=== PATIENT | female | born 1935 | race Two or more races ===

== ENCOUNTER 2018-12-27 16:52 | Inpatient (IN) | payer MEDICARE, MEDICAID ==
[~2018-12-27] VITALS: Ht 165.1 cm; Wt 52.6 kg
[~2018-12-27 16:52] MED LIST: CIPRO500 MG PO; ONDANSETRON ODT4 MG ORAL
[2018-12-27 17:06] VITALS: BP 177/41
[2018-12-27] MEDS ORDERED: Isovue-300 100ml vial INJ PRN (17:15)
[2018-12-27 17:49] LABS: BASOPHILS % (AUTO) 0.5 % (0.0-2.0); EOSINOPHILS % (AUTO) 3.7 % (0.0-3.0); HEMATOCRIT 29.3 % (37.0-47.0); HEMOGLOBIN 9.6 G/DL (12.0-16.0); LYMPHOCYTES % (AUTO) 9.4 % (20.0-45.0); MEAN CORPUSCULAR VOLUME 89 FL (80-99); MONOCYTES % (AUTO) 5.5 % (1.0-10.0); NEUTROPHILS % (AUTO) 80.9 % (45.0-75.0); PLATELET COUNT 271 K/UL (150-450); RED CELL DISTRIBUTION WIDTH 15.6 % (11.6-14.8); WHITE BLOOD COUNT 13.9 K/UL (4.8-10.8)
--- NOTE | 2018-12-27 17:53 | Emergency Room Report ---
History of Present Illness General Chief Complaint: Abdominal Pain Source: Patient, Family Member, EMS Present Illness HPI This patient recently underwent a nephrectomy for kidney cancer. She subsequently has started dialysis for the past 2 weeks. She was at dialysis today when she felt pain in her abdomen. She also felt gassy. She denies nausea or vomiting. She denies fever or chills. She denies chest pain or shortness of breath. She states her symptoms have much improved by she still does have some pain. She has no other complaints. Allergies: Coded Allergies: SULFA (SULFONAMIDE ANTIBIOTICS) (Verified Allergy, Unknown, 11/21/14) COPIED FROM UNCODED SECTION Patient History Past Medical History: see triage record, DM, HTN, other - HLP Past Surgical History: other - Nephrectomy 1 week ago. Social History: Denies: smoking, alcohol use, drug use Reviewed Nursing Documentation: PMH: Agreed; PSxH: Agreed Nursing Documentation-PMH Hx Hypertension: Yes Hx Diabetes: Yes Review of Systems All Other Systems: negative except mentioned in HPI Physical Exam Vital Signs Date Time Temp Pulse Resp B/P (MAP) Pulse Ox O2 Delivery O2 Flow Rate FiO2 12/27/18 16:40 98.2 120 18 147/57 99 Room Air Sp02 EP Interpretation: reviewed, normal General Appearance: no apparent distress, alert, GCS 15, non-toxic Head: normocephalic, atraumatic Eyes: bilateral eye normal inspection, bilateral eye PERRL ENT: hearing grossly normal, normal pharynx, no angioedema, normal voice Neck: full range of motion, supple/symm/no masses Respiratory: chest non-tender, lungs clear, normal breath sounds, no respiratory distress, no retraction, no accessory muscle use, speaking full sentences Cardiovascular #1: regular rate, rhythm, no edema Gastrointestinal: normal bowel sounds, soft, non-distended, no guarding, no rebound, tenderness - Mild ttp in epigastrium Rectal: deferred Musculoskeletal: back normal, gait/station normal, normal range of motion, non- tender Neurologic: alert, oriented x3, responsive, motor strength/tone normal, sensory intact, speech normal Psychiatric: judgement/insight normal, memory normal, mood/affect normal, no suicidal/homicidal ideation Skin: normal color, no rash, warm/dry, well hydrated Medical Decision Making Diagnostic Impression: Primary Impression: Pancreatitis Additional Impressions: Postoperative generalized abdominal pain Post-operative infection ER Course This patient underwent a CT of the abdomen and pelvis given her recent nephrectomy. There were postoperative findings and over findings that could be a postoperative infection. Overall, the patient's abdomen is not peritoneal on exam. The patient is given broad-spectrum antibiotics and consultation was placed a general surgery. The patient will be admitted for further monitoring and further evaluation and treatment. Laboratory Tests Test 12/27/18 17:32 12/27/18 17:35 Urine Color Yellow Urine Appearance Clear Urine pH 9 (4.5-8.0) Urine Specific [place] 1.015 (1.005-1.035) Urine Protein 3+ (NEGATIVE) H Urine Glucose (UA) Negative (NEGATIVE) Urine Ketones Negative (NEGATIVE) Urine Blood 2+ (NEGATIVE) H Urine Nitrite Negative (NEGATIVE) Urine Bilirubin Negative (NEGATIVE) Urine Urobilinogen Normal MG/DL (0.0-1.0) Urine Leukocyte Esterase Negative (NEGATIVE) Urine RBC 0-2 /HPF (0 - 2) Urine WBC 0-2 /HPF (0 - 2) Urine Squamous Epithelial Cells Occasional /LPF Urine Bacteria None /HPF (NONE) White Blood Count 13.9 K/UL (4.8-10.8) H Red Blood Count 3.30 M/UL (4.20-5.40) L Hemoglobin 9.6 G/DL (12.0-16.0) L Hematocrit 29.3 % (37.0-47.0) L Mean Corpuscular Volume 89 FL (80-99) Mean Corpuscular Hemoglobin 29.1 PG (27.0-31.0) Mean Corpuscular Hemoglobin Concent 32.8 G/DL (32.0-36.0) Red Cell Distribution Width 15.6 % (11.6-14.8) H Platelet Count 271 K/UL (150-450) Mean Platelet Volume 6.5 FL (6.5-10.1) Neutrophils (%) (Auto) 80.9 % (45.0-75.0) H Lymphocytes (%) (Auto) 9.4 % (20.0-45.0) L Monocytes (%) (Auto) 5.5 % (1.0-10.0) Eosinophils (%) (Auto) 3.7 % (0.0-3.0) H Basophils (%) (Auto) 0.5 % (0.0-2.0) Sodium Level 139 MMOL/L (136-145) Potassium Level 3.9 MMOL/L (3.5-5.1) Chloride Level 101 MMOL/L (98-107) Carbon Dioxide Level 31 MMOL/L (21-32) Anion Gap 7 mmol/L (5-15) Blood Urea Nitrogen 29 mg/dL (7-18) H Creatinine 2.9 MG/DL (0.55-1.30) H Estimate Glomerular Filtration Rate mL/min (>60) Glucose Level 83 MG/DL (74-106) Calcium Level 8.6 MG/DL (8.5-10.1) Total Bilirubin 0.5 MG/DL (0.2-1.0) Aspartate Amino Transferase (AST) 39 U/L (15-37) H Alanine Aminotransferase (ALT) 22 U/L (12-78) Alkaline Phosphatase 89 U/L (46-116) Total Protein 7.8 G/DL (6.4-8.2) Albumin 2.8 G/DL (3.4-5.0) L Globulin 5.0 g/dL Albumin/Globulin Ratio 0.6 (1.0-2.7) L Lipase 529 U/L (73-393) H CT/MRI/US Diagnostic Results CT/MRI/US Diagnostic Results : Imaging Test Ordered: CT abd/pelvis Impression Multiple postoperative findings and some other findings that could be postoperative infection. Please see official report in the electronic medical record. Last Vital Signs Date Time Temp Pulse Resp B/P (MAP) Pulse Ox O2 Delivery O2 Flow Rate FiO2 12/27/18 17:06 98.2 62 16 177/41 97 Room Air Disposition: ADMITTED INPATIENT Condition: Serious Referrals: NOT CHOSEN IPA/,REFERRING (PCP) Agata Arceo DO Dec 27, 2018 17:53
[2018-12-27 17:57] LABS: ANION GAP 7 mmol/L (5-15); BLOOD UREA NITROGEN 29 mg/dL (7-18); CALCIUM 8.6 MG/DL (8.5-10.1); CARBON DIOXIDE 31 MMOL/L (21-32); CHLORIDE 101 MMOL/L (98-107); CREATININE 2.9 MG/DL (0.55-1.30); POTASSIUM 3.9 MMOL/L (3.5-5.1); SODIUM 139 MMOL/L (136-145)
[2018-12-27 18:01] LABS: APPEARANCE,URINE CLEAR; BILIRUBIN, URINE NEGATIVE (NEGATIVE); GLUCOSE, URINE (UA) NEGATIVE (NEGATIVE); KETONES,URINE NEGATIVE (NEGATIVE); LEUKOCYTE ESTERASE ,URINE NEGATIVE (NEGATIVE); NITRITE,URINE NEGATIVE (NEGATIVE); PH,URINE 9 (4.5-8.0); PROTEIN,URINE 3+ (NEGATIVE); UROBILINOGEN,URINE NORMAL MG/DL (0.0-1.0)
[2018-12-27 18:01] LABS: ALANINE AMINOTRANSFERASE 22 U/L (12-78); ALBUMIN 2.8 G/DL (3.4-5.0); ALBUMIN/GLOBULIN RATIO 0.6 (1.0-2.7); ALKALINE PHOSPHATASE 89 U/L (46-116); ASPARTATE AMINO TRANSFERASE 39 U/L (15-37); BILIRUBIN,TOTAL 0.5 MG/DL (0.2-1.0)
[2018-12-27 18:04] LABS: COLOR,URINE YELLOW
[2018-12-27] MEDS ORDERED: Piperacillin/Tazobactam 2.25 GM in NS 110 ML IVPB ONE (19:45)
[2018-12-27 20:00] VITALS: BP 184/71
[2018-12-27 21:00] VITALS: BP 190/64
[2018-12-27] MEDS ORDERED: Morphine Sulfate 4mg/ml Inj (IV USE ONLY) IVP ONE (21:45)
[2018-12-27 22:10] VITALS: BP 154/76
[2018-12-27] MEDS ORDERED: HYDROcodone/Acetamin 5/325 tab ORAL PRN (22:45)
[2018-12-27] MEDS ORDERED: HydrALAZINE 25mg tab ORAL PRN (22:45)
[2018-12-27 22:52] VITALS: BP 192/68
[2018-12-28 01:00] VITALS: BP 181/50
[2018-12-28] MEDS ORDERED: Zosyn 2.25gm inj ONE (02:46)
[2018-12-28 04:00] VITALS: BP 107/49
[2018-12-28] MEDS ORDERED: Piperacillin/Tazobactam 3.375 GM in NS 110 ML IVPB SCH (06:00)
[2018-12-28] MEDS: Zosyn 2.25 gm in D5W 55ml IV SCH ×3 (06:12→22:18)
[2018-12-28 07:38] LABS: ANION GAP 10 mmol/L (5-15); BLOOD UREA NITROGEN 40 mg/dL (7-18); CALCIUM 8.6 MG/DL (8.5-10.1); CARBON DIOXIDE 31 MMOL/L (21-32); CHLORIDE 101 MMOL/L (98-107); CREATININE 3.8 MG/DL (0.55-1.30); POTASSIUM 3.8 MMOL/L (3.5-5.1); SODIUM 142 MMOL/L (136-145)
[2018-12-28 07:42] LABS: HEMATOCRIT 28.6 % (37.0-47.0); HEMOGLOBIN 9.5 G/DL (12.0-16.0); MEAN CORPUSCULAR VOLUME 89 FL (80-99); PLATELET COUNT 272 K/UL (150-450); RED BLOOD COUNT 3.23 M/UL (4.20-5.40); RED CELL DISTRIBUTION WIDTH 15.8 % (11.6-14.8); WHITE BLOOD COUNT 20.7 K/UL (4.8-10.8)
[2018-12-28 08:00] VITALS: BP 123/49
[2018-12-28] MEDS ORDERED: Heparin Sod 1000 units/ml 10ml IV PRN (08:30)
--- NOTE | 2018-12-28 10:23 | Diagnostic Imaging Report ---
Indication: Abdominal pain Technique: Continuous helical transaxial imaging of the abdomen and pelvis was obtained from the lung bases to the pubic symphysis during intravenous contrast administration. Coronal 2-D reformats were also obtained. Study obtained in a Siemens sensation [address] Automatic Exposure Control was utilized. Total Dose length Product (DLP): 636.[address] Dose Index Volume (CTDIvol): 13.18 mGy Comparison: None Findings: There is air within the portal vein especially in the left lobe of the liver. There is associated pneumatosis of the right hemicolon. Bowel ischemia is not excluded. Please correlate clinically. There is a moderate degree of fluid demonstrated within the left retroperitoneum seen in the setting of prior nephrectomy. This may be postsurgical fluid such as seroma, liquefied hematoma or lymphocele measuring about 3 x 7.4 x 10 cm.. Abscess is not excluded. There is also fluid within the right anterior abdominal wall measuring 7.8 x 3 x 7 cm with the same differential diagnosis. There are innumerable cysts within the left kidney. Extensive calcification of aorta and branches of aorta noted. There is air in the urinary bladder. There is a cystic lesion just above the bladder measuring 8.9 cm which could be ovarian in nature. The uterus is present. There is also a left adnexal 4.3 cm x 3.0 cm cyst noted. Moderate fecal retention in the colon and rectum demonstrated. No evidence of bowel obstruction. Gallbladder is unremarkable. There is narrowing of intervertebral discs and accompanying endplate osteophyte formation. Hypertrophied facet joints also demonstrated.. The lung bases are essentially clear. Cardiomegaly noted. IMPRESSION: Portal venous gas and pneumatosis in the right hemicolon. Bowel ischemia not excluded. Status post right nephrectomy with right retroperitoneal fluid collection and a right anterolateral wall fluid collection likely postsurgical in nature. These may represent liquefied hematomas, seromas, or infected fluid such as abscess. Correlate clinically. Atherosclerotic vascular disease Cystic foci within the pelvis likely of ovarian origin as described above Moderate fecal retention. Degenerative changes of the spine. [facility] has communicated the preliminary results to the Emergency Department. Their findings are largely concordant with this report. The CT scanner at [facility] is accredited by the [employer] and the scans are performed using dose optimization techniques as appropriate to a performed exam including Automatic Exposure control.
[2018-12-28 12:00] VITALS: BP 102/46
--- NOTE | 2018-12-28 12:18 | Diagnostic Imaging Report ---
Indication:Abdominal pain. Elevated liver function tests, BUN/creatinine, history of right nephrectomy 12/11/2018 Technique: Grayscale and duplex Doppler imaging of the abdomen performed. Comparison: None Findings: The liver shows a curvilinear echogenic foci in the left lobe consistent with portal venous gas which has been confirmed on CT. Fluid seen on CT in the right anterolateral abdominal wall is noted on the current study. Fluid seen in the right nephrectomy bed is not appreciated on the current examination. The gallbladder is unremarkable. CBD is 5.4 mm. The demonstrated part of the pancreas, aorta and IVC show no obvious abnormalities. The right kidney is absent. Left kidney appears echogenic and there are multiple cysts. The spleen is normal in size. There is no biliary ductal dilatation identified. Doppler evaluation of the main portal vein shows patency. There is no ascites. No hydronephrosis seen. Within the pelvis there is a large unilocular cyst measuring about 9 cm. The origin of this cyst is not elucidated on the current exam. Impression: Status post the nephrectomy. Right anterolateral abdominal wall fluid collection better appreciated on CT. Please refer to the CT abdomen report. Portal venous gas within the left lobe of the liver. Abnormal left kidney with multiple cysts. Medical renal disease likely present. 9 cm cyst within the pelvis adjacent to the urinary bladder. Origin of the cyst unknown. This could be ovarian. Further evaluation is recommended.
--- NOTE | 2018-12-28 12:37 | History & Physical ---
History and Physical History & Physicial dictated #[id number] Oj Turcios MD Dec 28, 2018 12:37
[2018-12-28] MEDS ORDERED: Vancomycin oral 125mg/2.5ml ORAL SCH (13:00)
--- NOTE | 2018-12-28 13:01 | Consultation ---
Consult Note Assessment/Plan Renal consult dictated # [id number] Modesto Romero MD Dec 28, 2018 13:01
[2018-12-28] MEDS: Nephrovite tab (Rena-Vite) ORAL SCH (13:49)
--- NOTE | 2018-12-28 13:53 | GI Initial Consult Note ---
History of Present Illness General Date patient seen: Dec 28, 2018 Time patient seen: 13:49 Reason for Hospitalization: Abdominal Pain Referring physician: PARVIZ Reason for Consultation: DIARRHEA Present Illness HPI This patient recently underwent a nephrectomy for kidney cancer. She subsequently has started dialysis for the past 2 weeks. She was at dialysis today when she felt pain in her abdomen. She also felt gassy. She denies nausea or vomiting. She denies fever or chills. She denies chest pain or shortness of breath. She states her symptoms have much improved by she still does have some pain. She has no other complaints. GI consulted for diarrhea. Patient seen, awake alert oriented no apparent distress. Patient has complaint of severe diarrhea greater than 6 bowel movements today. Stated her initial onset was approximately 1-2 days ago. Specimen was sent to the lab, negative for C. difficile and positive for occult blood stool. Hemoglobin level is 9.5. Abdominal pelvic CT shows portal venous gas and pneumatosis in the right hemicolon. The patient denies any history of endoscopic colonoscopy. Home Meds Active Scripts Ondansetron Odt* (ZOFRAN ODT*) 4 Mg Tab.rapdis, 4 MG ORAL EVERY 8 HOURS, #9 TAB 0 Refills Prov:ColisaranoAgata. DO 11/21/14 Ciprofloxacin* (CIPRO*) 500 Mg Tablet, 500 MG PO BID for 10 Days, TAB Prov:Agata Arceo DO 11/21/14 Med list reviewed/reconciled: Yes Allergies: Coded Allergies: SULFA (SULFONAMIDE ANTIBIOTICS) (Verified Allergy, Unknown, 11/21/14) COPIED FROM UNCODED SECTION Patient History History Provided By: Patient, Medical Record PMH Narrative Past Medical History: see triage record, DM, HTN, other - HLP Past Surgical History: other - Nephrectomy 1 week ago. Social History: Denies: smoking, alcohol use, drug use Reviewed Nursing Documentation: PMH: Agreed; PSxH: Agreed Nursing Documentation-PMH Hx Hypertension: Yes Hx Diabetes: Yes Social History: Denies: smoking, alcohol use, drug use, other Review of Systems All Other Systems: negative except mentioned in HPI Physical Exam Vital Signs Date Time Temp Pulse Resp B/P (MAP) Pulse Ox O2 Delivery O2 Flow Rate FiO2 12/27/18 16:40 98.2 120 18 147/57 99 Room Air Sp02 EP Interpretation: reviewed, normal Labs Laboratory Tests Test 12/27/18 17:32 12/27/18 17:35 12/28/18 05:39 12/28/18 09:30 Urine Color Yellow Urine Appearance Clear Urine pH 9 (4.5-8.0) Urine Specific [place] 1.015 (1.005-1.035) Urine Protein 3+ (NEGATIVE) H Urine Glucose (UA) Negative (NEGATIVE) Urine Ketones Negative (NEGATIVE) Urine Blood 2+ (NEGATIVE) H Urine Nitrite Negative (NEGATIVE) Urine Bilirubin Negative (NEGATIVE) Urine Urobilinogen Normal MG/DL (0.0-1.0) Urine Leukocyte Esterase Negative (NEGATIVE) Urine RBC 0-2 /HPF (0 - 2) Urine WBC 0-2 /HPF (0 - 2) Urine Squamous Epithelial Cells Occasional /LPF Urine Bacteria None /HPF (NONE) White Blood Count 13.9 K/UL (4.8-10.8) H 20.7 K/UL (4.8-10.8) H Red Blood Count 3.30 M/UL (4.20-5.40) L 3.23 M/UL (4.20-5.40) L Hemoglobin 9.6 G/DL (12.0-16.0) L 9.5 G/DL (12.0-16.0) L Hematocrit 29.3 % (37.0-47.0) L 28.6 % (37.0-47.0) L Mean Corpuscular Volume 89 FL (80-99) 89 FL (80-99) Mean Corpuscular Hemoglobin 29.1 PG (27.0-31.0) 29.3 PG (27.0-31.0) Mean Corpuscular Hemoglobin Concent 32.8 G/DL (32.0-36.0) 33.1 G/DL (32.0-36.0) Red Cell Distribution Width 15.6 % (11.6-14.8) H 15.8 % (11.6-14.8) H Platelet Count 271 K/UL (150-450) 272 K/UL (150-450) Mean Platelet Volume 6.5 FL (6.5-10.1) 6.5 FL (6.5-10.1) Neutrophils (%) (Auto) 80.9 % (45.0-75.0) H % (45.0-75.0) Lymphocytes (%) (Auto) 9.4 % (20.0-45.0) L % (20.0-45.0) Monocytes (%) (Auto) 5.5 % (1.0-10.0) % (1.0-10.0) Eosinophils (%) (Auto) 3.7 % (0.0-3.0) H % (0.0-3.0) Basophils (%) (Auto) 0.5 % (0.0-2.0) % (0.0-2.0) Sodium Level 139 MMOL/L (136-145) 142 MMOL/L (136-145) Potassium Level 3.9 MMOL/L (3.5-5.1) 3.8 MMOL/L (3.5-5.1) Chloride Level 101 MMOL/L (98-107) 101 MMOL/L (98-107) Carbon Dioxide Level 31 MMOL/L (21-32) 31 MMOL/L (21-32) Anion Gap 7 mmol/L (5-15) 10 mmol/L (5-15) Blood Urea Nitrogen 29 mg/dL (7-18) H 40 mg/dL (7-18) H Creatinine 2.9 MG/DL (0.55-1.30) H 3.8 MG/DL (0.55-1.30) H Estimat Glomerular Filtration Rate mL/min (>60) mL/min (>60) Glucose Level 83 MG/DL (74-106) 43 MG/DL (74-106) L Calcium Level 8.6 MG/DL (8.5-10.1) 8.6 MG/DL (8.5-10.1) Total Bilirubin 0.5 MG/DL (0.2-1.0) Aspartate Amino Transf (AST/SGOT) 39 U/L (15-37) H Alanine Aminotransferase (ALT/SGPT) 22 U/L (12-78) Alkaline Phosphatase 89 U/L (46-116) Total Protein 7.8 G/DL (6.4-8.2) Albumin 2.8 G/DL (3.4-5.0) L Globulin 5.0 g/dL Albumin/Globulin Ratio 0.6 (1.0-2.7) L Lipase 529 U/L (73-393) H 231 U/L (73-393) Differential Total Cells Counted 100 Neutrophils % (Manual) 94 % (45-75) H Lymphocytes % (Manual) 2 % (20-45) L Monocytes % (Manual) 1 % (1-10) Eosinophils % (Manual) 0 % (0-3) Basophils % (Manual) 0 % (0-2) Band Neutrophils 3 % (0-8) Platelet Estimate Adequate Platelet Morphology Normal Anisocytosis 1+ Stool Occult Blood Positive (NEGATIVE) General Appearance: well appearing, no apparent distress, alert, thin Head: normocephalic EENT: PERRL/EOMI, normal ENT inspection Neck: supple Respiratory: normal breath sounds, no respiratory distress Cardiovascular: normal rate Gastrointestinal: normal inspection, non tender, soft, normal bowel sounds, non -distended Rectal: deferred Genitourinary: no CVA tenderness Musculoskeletal: normal inspection, back normal Neurologic: normal inspection, alert, oriented x3, responsive Psychiatric: normal inspection, judgement/insight normal, memory normal Skin: normal inspection, normal color, no rash, warm/dry, palpation normal, well hydrated Lymphatic: normal inspection, no adenopathy Current Medications Current Medications Medications (Trade) Dose Ordered Sig/Kranthi Route PRN Reason Start Time Stop Time Status Last Admin Dose Admin Acetaminophen (Tylenol) 650 mg Q4H PRN ORAL Mild Pain (Pain Scale 1-3) 12/27/18 22:45 01/26/19 22:44 12/28/18 04:52 Acetaminophen/ Hydrocodone Bitart ([place] 5/325) 1 tab Q6H PRN ORAL For Pain 12/27/18 22:45 01/03/19 22:44 Dextrose (Dextrose 50%) 25 ml Q30M PRN IV Hypoglycemia 12/27/18 22:45 01/26/19 22:44 Dextrose (Dextrose 50%) 50 ml Q30M PRN IV Hypoglycemia 12/27/18 22:45 01/26/19 22:44 Heparin Sodium (Porcine) (Heparin Sod 1000 units/ml 10ml) 500 unit ONCE PRN IV FOR HD USE ONLY 12/28/18 08:30 12/29/18 23:59 Hydralazine HCl (Apresoline) 25 mg Q6HR PRN ORAL SBP > 160 3/20/19 22:45 01/26/19 22:44 12/28/18 00:28 Iopamidol (Isovue-300 100ml) 100 ml NOW PRN INJ Radiology Procedure 12/27/18 17:15 Ondansetron HCl (Zofran) 4 mg Q6H PRN IVP Nausea & Vomiting 12/27/18 22:45 01/26/19 22:44 12/28/18 00:28 Piperacillin Sod/ Tazobactam Sod 2.25 gm/Dextrose 55 ml @ 110 mls/hr Q8HR IV 12/28/18 06:00 01/04/19 05:59 12/28/18 06:12 Sodium Chloride 1,000 ml @ 500 mls/hr Q2H PRN IVLG sbp<90 during hd 12/28/18 08:16 12/29/18 23:59 Vancomycin HCl (Firvanq) 125 mg FOUR TIMES A DAY ORAL 12/28/18 13:00 01/04/19 12:59 UNV Vitamin B Complex/ Vit C/Folic Acid (Nephrovite) 1 tab DAILY ORAL 12/28/18 13:15 01/27/19 13:14 GI: Plan Problems: (1) Diarrhea (2) Anemia (3) Ischemic colitis (4) Postoperative generalized abdominal pain Plan Abdominal pelvis CT reviewed >> This Portal venous gas and pneumatosis in the right hemicolon suggestive of ischemic colitis. OB stool positive Cdiff negative recommend surgical consult evaluate possible bowel ischemia as seen on CT maintain NPO + IVFs until seen by surgery no plan for GI procedures at this time anemia work up monitor H&H, prn transfusions bowel regime ppi fu labs Discussed with Dr. Nice. Thank you for this patient referral, we will follow. The patient was seen and examined at bedside and all new and available data was reviewed in the patients chart. I agree with the above findings, impression and plan. (Patient seen earlier today. Signature stamp does not reflect patient encounter time.). - MD Lani MirandaTucson Medical CenterRey RN OPERATING ROOM Dec 28, 2018 13:53
--- NOTE | 2018-12-28 15:17 | Consultation ---
History of Present Illness General Reason for Hospitalization: Abdominal Pain Present Illness HPI This is a 83-year-old female who presented to the emergency department at [facility] complaining of abdominal pain. Patient has a history of recent right nephrectomy done at [facility] for renal cancer. She has been in recovery and home with the family doing well until worsening abdominal pain identified. Denies any nausea vomiting fever or chills. In emergency department identified to have a leukocytosis, abdominal discomfort on palpation, CT scan with below findings. She is admitted for evaluation care and management. Surgery called to evaluate and assist with care. Allergies: Coded Allergies: SULFA (SULFONAMIDE ANTIBIOTICS) (Verified Allergy, Unknown, 11/21/14) COPIED FROM UNCODED SECTION Medication History Scheduled Ciprofloxacin* (Cipro*), 500 MG PO BID Ondansetron Odt* (Zofran Odt*), 4 MG ORAL EVERY 8 HOURS Patient History History Provided By: Patient, Medical Record, PMD Healthcare decision maker Resuscitation status Advanced Directive on File Past Medical/Surgical History Past Medical/Surgical History: (1) UTI (lower urinary tract infection) (2) Nausea (3) UTI (lower urinary tract infection) (4) Post-operative infection (5) Postoperative generalized abdominal pain (6) Pancreatitis (7) Anemia (8) Diarrhea (9) Ischemic colitis Review of Systems Review of Symptoms General ROS: no weight loss or fever Psychological ROS: no depression or mood changes, no memory loss Ophthalmic ROS: no visual changes or eye irritation ENT ROS: no nasal congestion, hearing loss, dizziness Allergy and Immunology ROS: no allergic symptoms or urticaria Hematological and Lymphatic ROS: no swollen glands, unusual bleeding or bruising Endocrine ROS: no polyuria, polydipsia, weight changes, temperature intolerance Respiratory ROS: no cough, shortness of breath, or wheezing Cardiovascular ROS: no chest pain or dyspnea on exertion Gastrointestinal ROS: denies abdominal pain, bright red blood in stool. Musculoskeletal ROS: no myalgias or arthralgias Neurological ROS: no TIA or stroke symptoms Dermatological ROS: no new or changing skin lesions, rashes or pruritis Physical Exam Physical Exam General appearance: alert, cooperative, no distress, appears stated age Head: Normocephalic, without obvious abnormality, atraumatic Eyes: conjunctivae/corneas clear. PERRL, EOM's intact. Fundi benign Throat: Lips, mucosa, and tongue normal. Teeth and gums normal Neck: supple, symmetrical, trachea midline, no adenopathy, thyroid: not enlarged, symmetric, no tenderness/mass/nodules, no carotid bruit and no JVD Lungs: clear to auscultation bilaterally Heart: regular rate and rhythm, S1, S2 normal, no murmur, click, rub or gallop Abdomen: soft, mild-tender. Bowel sounds normal. No masses, no organomegaly; right flank incision c/d/i - underlying fluid collection palpable. Extremities: extremities normal, atraumatic, no cyanosis or edema Pulses: 2+ and symmetric Skin: Skin color, texture, turgor normal. No rashes or lesions Neurologic: Grossly normal Last 24 Hour Vital Signs Date Time Temp Pulse Resp B/P (MAP) Pulse Ox O2 Delivery O2 Flow Rate FiO2 12/28/18 12:00 98.1 61 18 102/46 (64) 96 12/28/18 09:00 Room Air 12/28/18 08:00 97.9 65 18 123/49 (73) 95 12/28/18 05:22 102.2 12/28/18 04:00 102.0 74 20 107/49 (68) 97 12/28/18 01:00 102.1 72 18 181/50 (93) 98 12/28/18 00:28 194/68 12/27/18 22:52 Room Air 12/27/18 22:52 102.1 74 18 192/68 (109) 100 12/27/18 22:38 98.2 77 16 154/76 97 Room Air 12/27/18 22:32 98.2 12/27/18 22:10 98.2 77 16 154/76 97 Room Air 12/27/18 22:02 190/64 12/27/18 21:00 98.2 77 16 190/64 97 Room Air 12/27/18 20:00 98.2 74 16 184/71 98 Room Air 12/27/18 17:06 98.2 62 16 177/41 97 Room Air 12/27/18 17:06 62 16 Room Air 12/27/18 16:40 98.2 120 18 147/57 99 Room Air Intake and Output 12/27/18 12/28/18 18:59 06:59 Output Total 0 ml Balance 0 ml Output Urine Total 0 ml # Voids 2 # Bowel Movements 1 Laboratory Tests Test 3/20/19 17:32 12/27/18 17:35 12/28/18 05:39 12/28/18 09:30 Urine Color Yellow Urine Appearance Clear Urine pH 9 (4.5-8.0) Urine Specific [place] 1.015 (1.005-1.035) Urine Protein 3+ (NEGATIVE) H Urine Glucose (UA) Negative (NEGATIVE) Urine Ketones Negative (NEGATIVE) Urine Blood 2+ (NEGATIVE) H Urine Nitrite Negative (NEGATIVE) Urine Bilirubin Negative (NEGATIVE) Urine Urobilinogen Normal MG/DL (0.0-1.0) Urine Leukocyte Esterase Negative (NEGATIVE) Urine RBC 0-2 /HPF (0 - 2) Urine WBC 0-2 /HPF (0 - 2) Urine Squamous Epithelial Cells Occasional /LPF Urine Bacteria None /HPF (NONE) White Blood Count 13.9 K/UL (4.8-10.8) H 20.7 K/UL (4.8-10.8) H Red Blood Count 3.30 M/UL (4.20-5.40) L 3.23 M/UL (4.20-5.40) L Hemoglobin 9.6 G/DL (12.0-16.0) L 9.5 G/DL (12.0-16.0) L Hematocrit 29.3 % (37.0-47.0) L 28.6 % (37.0-47.0) L Mean Corpuscular Volume 89 FL (80-99) 89 FL (80-99) Mean Corpuscular Hemoglobin 29.1 PG (27.0-31.0) 29.3 PG (27.0-31.0) Mean Corpuscular Hemoglobin Concent 32.8 G/DL (32.0-36.0) 33.1 G/DL (32.0-36.0) Red Cell Distribution Width 15.6 % (11.6-14.8) H 15.8 % (11.6-14.8) H Platelet Count 271 K/UL (150-450) 272 K/UL (150-450) Mean Platelet Volume 6.5 FL (6.5-10.1) 6.5 FL (6.5-10.1) Neutrophils (%) (Auto) 80.9 % (45.0-75.0) H % (45.0-75.0) Lymphocytes (%) (Auto) 9.4 % (20.0-45.0) L % (20.0-45.0) Monocytes (%) (Auto) 5.5 % (1.0-10.0) % (1.0-10.0) Eosinophils (%) (Auto) 3.7 % (0.0-3.0) H % (0.0-3.0) Basophils (%) (Auto) 0.5 % (0.0-2.0) % (0.0-2.0) Sodium Level 139 MMOL/L (136-145) 142 MMOL/L (136-145) Potassium Level 3.9 MMOL/L (3.5-5.1) 3.8 MMOL/L (3.5-5.1) Chloride Level 101 MMOL/L (98-107) 101 MMOL/L (98-107) Carbon Dioxide Level 31 MMOL/L (21-32) 31 MMOL/L (21-32) Anion Gap 7 mmol/L (5-15) 10 mmol/L (5-15) Blood Urea Nitrogen 29 mg/dL (7-18) H 40 mg/dL (7-18) H Creatinine 2.9 MG/DL (0.55-1.30) H 3.8 MG/DL (0.55-1.30) H Estimat Glomerular Filtration Rate mL/min (>60) mL/min (>60) Glucose Level 83 MG/DL (74-106) 43 MG/DL (74-106) L Calcium Level 8.6 MG/DL (8.5-10.1) 8.6 MG/DL (8.5-10.1) Total Bilirubin 0.5 MG/DL (0.2-1.0) Aspartate Amino Transf (AST/SGOT) 39 U/L (15-37) H Alanine Aminotransferase (ALT/SGPT) 22 U/L (12-78) Alkaline Phosphatase 89 U/L (46-116) Total Protein 7.8 G/DL (6.4-8.2) Albumin 2.8 G/DL (3.4-5.0) L Globulin 5.0 g/dL Albumin/Globulin Ratio 0.6 (1.0-2.7) L Lipase 529 U/L (73-393) H 231 U/L (73-393) Differential Total Cells Counted 100 Neutrophils % (Manual) 94 % (45-75) H Lymphocytes % (Manual) 2 % (20-45) L Monocytes % (Manual) 1 % (1-10) Eosinophils % (Manual) 0 % (0-3) Basophils % (Manual) 0 % (0-2) Band Neutrophils 3 % (0-8) Platelet Estimate Adequate Platelet Morphology Normal Anisocytosis 1+ Stool Occult Blood Positive (NEGATIVE) Microbiology Date/Time Source Procedure Growth Status 12/28/18 09:30 Stool Clostridium difficile Toxin Assay - Final Complete 12/27/18 22:00 Rectum Received Height (Feet): 5 Height (Inches): 3.00 Weight (Pounds): 136 Medications Current Medications Medications (Trade) Dose Ordered Sig/Kranthi Route PRN Reason Start Time Stop Time Status Last Admin Dose Admin Acetaminophen (Tylenol) 650 mg Q4H PRN ORAL Mild Pain (Pain Scale 1-3) 12/27/18 22:45 01/26/19 22:44 12/28/18 04:52 Acetaminophen/ Hydrocodone Bitart ([place] 5/325) 1 tab Q6H PRN ORAL For Pain 12/27/18 22:45 01/03/19 22:44 Dextrose (Dextrose 50%) 25 ml Q30M PRN IV Hypoglycemia 12/27/18 22:45 01/26/19 22:44 Dextrose (Dextrose 50%) 50 ml Q30M PRN IV Hypoglycemia 12/27/18 22:45 01/26/19 22:44 Heparin Sodium (Porcine) (Heparin Sod 1000 units/ml 10ml) 500 unit ONCE PRN IV FOR HD USE ONLY 12/28/18 08:30 12/29/18 23:59 Hydralazine HCl (Apresoline) 25 mg Q6HR PRN ORAL SBP > 160 12/27/18 22:45 01/26/19 22:44 12/28/18 00:28 Iopamidol (Isovue-300 100ml) 100 ml NOW PRN INJ Radiology Procedure 12/27/18 17:15 Ondansetron HCl (Zofran) 4 mg Q6H PRN IVP Nausea & Vomiting 12/27/18 22:45 01/26/19 22:44 12/28/18 00:28 Piperacillin Sod/ Tazobactam Sod 2.25 gm/Dextrose 55 ml @ 110 mls/hr Q8HR IV 12/28/18 06:00 01/04/19 05:59 12/28/18 13:51 Sodium Chloride 1,000 ml @ 500 mls/hr Q2H PRN IVLG sbp<90 during hd 12/28/18 08:16 12/29/18 23:59 Vitamin B Complex/ Vit C/Folic Acid (Nephrovite) 1 tab DAILY ORAL 12/28/18 13:15 01/27/19 13:14 12/28/18 13:49 Assessment/Plan Problem List: (1) Ischemic colitis ICD Codes: K55.9 - Vascular disorder of intestine, unspecified SNOMED: 49455515 (2) Pancreatitis Assessment & Plan: Noted to have pancreatitis with lipase >500 on admission. currently trending down. clinically abd pain more related to surgical findings and less clinically pancreatitis. ICD Codes: K85.90 - Acute pancreatitis without necrosis or infection, unspecified SNOMED: 48009671 (3) Postoperative generalized abdominal pain Assessment & Plan: This is a 83-year-old female status post right nephrectomy for cancer at outside facility who presents with worsening abdominal pain. Upon admission she was identified to have a fever of 102 over the past 24 hours , a worsening leukocytosis, abdominal discomfort, diarrhea, stool positive blood. CT scan findings with air within the portal vein especially in the left lobe of the liver. There is associated pneumatosis of the right hemicolon. Bowel ischemia is not excluded. Please correlate clinically. There is a moderate degree of fluid demonstrated within the left retroperitoneum seen in the setting of prior nephrectomy. This may be postsurgical fluid such as seroma, liquefied hematoma or lymphocele measuring about 3 x 7.4 x 10 cm. Abscess is not excluded. There is also fluid within the right anterior abdominal wall measuring 7.8 x 3 x 7 cm with the same differential diagnosis. There are innumerable cysts within the left kidney. Extensive calcification of aorta and branches of aorta noted. There is air in the urinary bladder. There is a cystic lesion just above the bladder measuring 8.9 cm which could be ovarian in nature. The uterus is present. There is also a left adnexal 4.3 cm x 3.0 cm cyst noted Febrile, leukocytosis, abd pain, CT with above findings. CT was were reviewed and correlated with physical examination. The surgical site is clean dry without signs of cellulitis or infectious process. Underlying fluid collection is palpable and seemingly more a seroma than abscess cavity. Case was discussed with gastroenterology and patient's primary. Given patient's fairly benign clinical examination and above data. It is likely that patient is having infectious colitis and less likely patient having ischemic colitis. Current plan is for n.p.o., bowel prep, colonoscopy, preparation for surgery if necessary based on any of these findings. Trend labs. Thank you for allowing me to participate in patient's care will follow with recommendations ICD Codes: G89.18 - Other acute postprocedural pain; R10.84 - Generalized abdominal pain SNOMED: 091367292, [id number] Tyrese Price Dec 28, 2018 15:17
[2018-12-28 16:00] VITALS: BP 133/72
[2018-12-28] MEDS ORDERED: Nulytely 4L ORAL SCH (16:00)
--- NOTE | 2018-12-28 16:45 | Consultation ---
DATE OF CONSULTATION: 12/28/2018 CONSULTING PHYSICIAN: Kvng Epperson M.D. REFERRING PHYSICIAN: Oj Turcios M.D. REASON FOR CONSULTATION: Evaluation of abdominal pain. HISTORY OF PRESENT ILLNESS: This is an 83-year-old female. She is about 2-1/2 weeks or so status post right nephrectomy at [facility] for what the patient states was a "tumor." Apparently, she has some chronic kidney disease, she has been on dialysis. She came to the ER because of abdominal pain. She has had some fevers. She had a CT scan, which showed postoperative changes and possible infection. Urology evaluation requested. PAST MEDICAL HISTORY: Significant for above. Also, diabetes and hypertension. PAST SURGICAL HISTORY: As above. CURRENT MEDICATIONS: Here in the hospital, the patient is on Zosyn, Zofran, [place], and hydralazine. ALLERGIES: To sulfa. SOCIAL HISTORY: She is a nonsmoker. FAMILY HISTORY: Noncontributory. REVIEW OF SYSTEMS: As above. She does have occasional urinary frequency. PHYSICAL EXAMINATION: GENERAL: Elderly female, in no acute distress. HEENT: T-max of 102.2. Blood pressure is 107, 49. HEENT: Normocephalic. NECK: Supple. ABDOMEN: Soft, nondistended, and mildly tender. She does have a right flank scar, which is covered with Steri-Strips, but the scar appears to be clean without erythema. There is no fluctuance or drainage visible. LABORATORY STUDIES: UA showed 3+ protein and 2+ blood. White count 13.9, hemoglobin 9.6, and platelets are 271,000. BUN 29. Creatinine is 2.9. There are no microbiology studies. DIAGNOSTIC IMAGING STUDIES: The patient had a CT scan of the abdomen and pelvis. The official report is not available now. Apparently, the preliminary finding showed postoperative changes, possibly infection. IMPRESSION: 1. Abdominal pain. 2. Status post recent right nephrectomy, presumably for renal cell carcinoma. 3. Chronic kidney disease. 4. Proteinuria. 5. Urinary frequency history. 6. Rule out neurogenic bladder. 7. Hematuria. PLAN AND DISCUSSION: Again, the patient does have fevers. The exact source is unknown. Her exam is mostly benign. She does not have evidence of wound infection. Abdomen is soft. I have asked to follow up the final results of the CT scan and discussed with the radiologist. Certainly, there would be postoperative changes to be expected after surgery. If she does have a possible fluid collection or abscess, then that may require percutaneous drainage. Otherwise, at this time, I would monitor clinically with antibiotics. I would panculture and go from there. Thank you for this consultation. Kvng Epperson M.D. DR: YUDELKA JOB#: [id number] CC:
--- NOTE | 2018-12-28 17:39 | Infectious Diseases Prog Note ---
Assessment/Plan Assessment/Plan Full consult dictated: A) 1) sepsis, leukocytosis, fevers, diarrhea, abdominal discomfort 2) source unclear, c.diff. negative, blood cultures pending, CT abdomen and pelvis noted, ua benign 3) s/p right nephrectomy, hx of renal CA 4) CT with fluid collection and pneumatosis, ? seroma, ? abscess, ? hematoma , ? post-operative changes only, ? ischemic colitis 5) clinically not consistent of peritonitis on my exam 6) esrd, hd, has HD line, ? infected line 7) pmh noted 8) allergies - nkda P) 1) vancomycin and zosyn 2) for colonoscopy, f/u on cultures 3) surgery, urology and gi f/u 4) may need aspiration of fluid 5) d/w Dr. Turcios and Dr. Price 6) thank you Subjective Allergies: Coded Allergies: SULFA (SULFONAMIDE ANTIBIOTICS) (Verified Allergy, Unknown, 11/21/14) COPIED FROM UNCODED SECTION Objective Vital Signs Last 24 Hour Vital Signs Date Time Temp Pulse Resp B/P (MAP) Pulse Ox O2 Delivery O2 Flow Rate FiO2 12/28/18 12:00 98.1 61 18 102/46 (64) 96 12/28/18 09:00 Room Air 12/28/18 08:00 97.9 65 18 123/49 (73) 95 12/28/18 05:22 102.2 12/28/18 04:00 102.0 74 20 107/49 (68) 97 12/28/18 01:00 102.1 72 18 181/50 (93) 98 12/28/18 00:28 194/68 12/27/18 22:52 Room Air 12/27/18 22:52 102.1 74 18 192/68 (109) 100 12/27/18 22:38 98.2 77 16 154/76 97 Room Air 12/27/18 22:32 98.2 12/27/18 22:10 98.2 77 16 154/76 97 Room Air 12/27/18 22:02 190/64 12/27/18 21:00 98.2 77 16 190/64 97 Room Air 12/27/18 20:00 98.2 74 16 184/71 98 Room Air Height (Feet): 5 Height (Inches): 3.00 Weight (Pounds): 136 Microbiology Date/Time Source Procedure Growth Status 12/28/18 09:30 Stool Clostridium difficile Toxin Assay - Final Complete 12/27/18 22:00 Rectum Received Laboratory Tests Test 12/27/18 17:32 12/27/18 17:35 12/28/18 05:39 12/28/18 09:30 Urine Color Yellow Urine Appearance Clear Urine pH 9 (4.5-8.0) Urine Specific [place] 1.015 (1.005-1.035) Urine Protein 3+ (NEGATIVE) H Urine Glucose (UA) Negative (NEGATIVE) Urine Ketones Negative (NEGATIVE) Urine Blood 2+ (NEGATIVE) H Urine Nitrite Negative (NEGATIVE) Urine Bilirubin Negative (NEGATIVE) Urine Urobilinogen Normal MG/DL (0.0-1.0) Urine Leukocyte Esterase Negative (NEGATIVE) Urine RBC 0-2 /HPF (0 - 2) Urine WBC 0-2 /HPF (0 - 2) Urine Squamous Epithelial Cells Occasional /LPF Urine Bacteria None /HPF (NONE) White Blood Count 13.9 K/UL (4.8-10.8) H 20.7 K/UL (4.8-10.8) H Red Blood Count 3.30 M/UL (4.20-5.40) L 3.23 M/UL (4.20-5.40) L Hemoglobin 9.6 G/DL (12.0-16.0) L 9.5 G/DL (12.0-16.0) L Hematocrit 29.3 % (37.0-47.0) L 28.6 % (37.0-47.0) L Mean Corpuscular Volume 89 FL (80-99) 89 FL (80-99) Mean Corpuscular Hemoglobin 29.1 PG (27.0-31.0) 29.3 PG (27.0-31.0) Mean Corpuscular Hemoglobin Concent 32.8 G/DL (32.0-36.0) 33.1 G/DL (32.0-36.0) Red Cell Distribution Width 15.6 % (11.6-14.8) H 15.8 % (11.6-14.8) H Platelet Count 271 K/UL (150-450) 272 K/UL (150-450) Mean Platelet Volume 6.5 FL (6.5-10.1) 6.5 FL (6.5-10.1) Neutrophils (%) (Auto) 80.9 % (45.0-75.0) H % (45.0-75.0) Lymphocytes (%) (Auto) 9.4 % (20.0-45.0) L % (20.0-45.0) Monocytes (%) (Auto) 5.5 % (1.0-10.0) % (1.0-10.0) Eosinophils (%) (Auto) 3.7 % (0.0-3.0) H % (0.0-3.0) Basophils (%) (Auto) 0.5 % (0.0-2.0) % (0.0-2.0) Sodium Level 139 MMOL/L (136-145) 142 MMOL/L (136-145) Potassium Level 3.9 MMOL/L (3.5-5.1) 3.8 MMOL/L (3.5-5.1) Chloride Level 101 MMOL/L (98-107) 101 MMOL/L (98-107) Carbon Dioxide Level 31 MMOL/L (21-32) 31 MMOL/L (21-32) Anion Gap 7 mmol/L (5-15) 10 mmol/L (5-15) Blood Urea Nitrogen 29 mg/dL (7-18) H 40 mg/dL (7-18) H Creatinine 2.9 MG/DL (0.55-1.30) H 3.8 MG/DL (0.55-1.30) H Estimat Glomerular Filtration Rate mL/min (>60) mL/min (>60) Glucose Level 83 MG/DL (74-106) 43 MG/DL (74-106) L Calcium Level 8.6 MG/DL (8.5-10.1) 8.6 MG/DL (8.5-10.1) Total Bilirubin 0.5 MG/DL (0.2-1.0) Aspartate Amino Transf (AST/SGOT) 39 U/L (15-37) H Alanine Aminotransferase (ALT/SGPT) 22 U/L (12-78) Alkaline Phosphatase 89 U/L (46-116) Total Protein 7.8 G/DL (6.4-8.2) Albumin 2.8 G/DL (3.4-5.0) L Globulin 5.0 g/dL Albumin/Globulin Ratio 0.6 (1.0-2.7) L Lipase 529 U/L (73-393) H 231 U/L (73-393) Differential Total Cells Counted 100 Neutrophils % (Manual) 94 % (45-75) H Lymphocytes % (Manual) 2 % (20-45) L Monocytes % (Manual) 1 % (1-10) Eosinophils % (Manual) 0 % (0-3) Basophils % (Manual) 0 % (0-2) Band Neutrophils 3 % (0-8) Platelet Estimate Adequate Platelet Morphology Normal Anisocytosis 1+ Stool Occult Blood Positive (NEGATIVE) Test 12/28/18 16:00 Lactic Acid Level 1.40 mmol/L (0.4-2.0) Current Medications Medications (Trade) Dose Ordered Sig/Kranthi Route PRN Reason Start Time Stop Time Status Last Admin Dose Admin Acetaminophen (Tylenol) 650 mg Q4H PRN ORAL Mild Pain (Pain Scale 1-3) 12/27/18 22:45 01/26/19 22:44 12/28/18 04:52 Acetaminophen/ Hydrocodone Bitart ([place] 5/325) 1 tab Q6H PRN ORAL For Pain 12/27/18 22:45 01/03/19 22:44 Dextrose (Dextrose 50%) 25 ml Q30M PRN IV Hypoglycemia 12/27/18 22:45 01/26/19 22:44 Dextrose (Dextrose 50%) 50 ml Q30M PRN IV Hypoglycemia 12/27/18 22:45 01/26/19 22:44 Heparin Sodium (Porcine) (Heparin Sod 1000 units/ml 10ml) 500 unit ONCE PRN IV FOR HD USE ONLY 12/28/18 08:30 12/29/18 23:59 Hydralazine HCl (Apresoline) 25 mg Q6HR PRN ORAL SBP > 160 12/27/18 22:45 01/26/19 22:44 12/28/18 00:28 Iopamidol (Isovue-300 100ml) 100 ml NOW PRN INJ Radiology Procedure 12/27/18 17:15 Ondansetron HCl (Zofran) 4 mg Q6H PRN IVP Nausea & Vomiting 12/27/18 22:45 01/26/19 22:44 12/28/18 00:28 Piperacillin Sod/ Tazobactam Sod 2.25 gm/Dextrose 55 ml @ 110 mls/hr Q8HR IV 12/28/18 06:00 01/04/19 05:59 12/28/18 13:51 Polyethylene Glycol/ Electrolytes (Nulytely) 4,000 ml ONCE ORAL 12/28/18 16:00 12/28/18 23:59 Sodium Chloride 1,000 ml @ 500 mls/hr Q2H PRN IVLG sbp<90 during hd 12/28/18 08:16 12/29/18 23:59 Vitamin B Complex/ Vit C/Folic Acid (Nephrovite) 1 tab DAILY ORAL 12/28/18 13:15 01/27/19 13:14 12/28/18 13:49 Ignacia Bills MD Dec 28, 2018 17:38
--- NOTE | 2018-12-28 17:39 | General Progress Note ---
Progress Note Progress Note Internal medicine progress note - addendum Reviewed CT abdomen and pelvis with GI and Surgery teams CT scan findings with air within the portal vein especially in the left lobe of the liver. There is associated pneumatosis of the right hemicolon which could be explained by infectious colitis vs ischemic colitis. There is a moderate degree of fluid demonstrated within the left retroperitoneum seen in the setting of prior nephrectomy. This may be postsurgical fluid such as seroma, liquefied hematoma or lymphocele measuring about 3 x 7.4 x 10 cm. Abscess is not excluded. There is also fluid within the right anterior abdominal wall measuring 7.8 x 3 x 7 cm with the same differential diagnosis. Underlying fluid collection is palpable and seemingly more a seroma than abscess cavity. Patient does not appear toxic. Vitals are stable. Her abdomen is not tender to palpation. C diff negative Case was discussed with gastroenterology and patient's primary. Given patient' s fairly benign clinical examination it is MORE likely patient is having infectious colitis and less likely patient having ischemic colitis or bowel ischemia. Lactic acid is normal. Plan Current plan is for n.p.o., bowel prep, colonoscopy in AM, preparation for surgery if necessary based on any of these findings. Spoke to GI, Surgery and ID. Spoke to daughter and discussed assessment and plan. She asked to transfer patient to [facility] where she had her surgery. Paged acetone recovery worker for transfer Oj Turcios MD Dec 28, 2018 17:39
[2018-12-28] MEDS ORDERED: Vancomycin 1gm/D5W 275ml IVPB SCH ×2 (18:00)
--- NOTE | 2018-12-28 19:00 | History and Physical Report ---
DATE OF ADMISSION: 12/27/2018 CHIEF COMPLAINT: Abdominal pain and diaphoresis. 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 The patient had one episode of nausea and vomiting today and several episodes of diarrhea that started today. She states abdominal pain is better. She is still nauseous. She had a CT abdomen and pelvis that showed a possible normal status post right nephrectomy with right retroperitoneal fluid collection that may be postsurgical; however, liquefied hematoma, seromas or infected fluid such as may also exist. The patient did have portal venous gas and pneumatosis in the right hemicolon and bowel ischemia cannot be excluded, although this may be normal postsurgical changes after nephrectomy. The patient also had some fecal retention. She denies any chest pain or shortness of breath. PAST MEDICAL HISTORY: Includes right kidney renal cell carcinoma, hypertension, hyperlipidemia, congestive heart failure with diastolic dysfunction, end-stage renal disease since right nephrectomy, sick sinus syndrome status post pacemaker, WILLIAMS, and diabetes. PAST SURGICAL HISTORY: Right kidney nephrectomy. SOCIAL HISTORY: The patient does not drink alcohol, smoke or use any drugs. ALLERGIES: To sulfa. MEDICATIONS: Reviewed in [employer]. REVIEW OF SYSTEMS: A 12-point review of systems negative except for pertinent positives as mentioned above. PHYSICAL EXAMINATION: VITAL SIGNS: Temperature is 102, pulse 74, respiratory rate 20, and blood pressure 102/49. O2 saturation is 97% on room air. GENERAL: No acute distress. The patient is alert, awake, and oriented x3. She looks nontoxic. HEENT: Normocephalic/atraumatic. NECK: Supple. No JVD. LUNGS: Clear to auscultation bilaterally. No crackles, rhonchi, or rales. CARDIOVASCULAR: Regular rate and rhythm. Normal S1, S2. ABDOMEN: Soft, nontender. No rebound tenderness. EXTREMITIES: No clubbing, cyanosis, or edema. NEUROLOGIC: The patient can move all extremities and is awake. LABORATORY DATA: CBC - white count 20.7, hemoglobin 9.5, and platelet count 272,000. Neutrophils 94%. Chemistry - sodium 142, potassium 3.8, chloride 101, CO2 31, BUN 40, and creatinine 3.8. Glucose is 43. Lipase is 529. CT abdomen and pelvis shows postsurgical changes and some fluid collection. There is pneumatosis which may be related to infectious colitis vs ischemic bowel (above are preliminary CT read results) ASSESSMENT: 1. Abdominal pain, diarrhea, nausea, and vomiting- differential diagnosis includes infectious colitis vs ischemic colitis 2. Elevated lipase-may be falsely elevated lipase given the patient is not very tender over epigastric region versus acute pancreatitis. 3. Abdominal pain possibly also related to postsurgical abdominal infection. 4. End-stage renal disease, on hemodialysis. 5. Recent right kidney nephrectomy for renal cell carcinoma. 6. Diabetes. 7. Hypertension. 8. Hyperlipidemia. 9. pneumatosis which may be related to infectious colitis vs ischemic bowel PLAN: 1. Admit the patient to Med/Surg. 2. Check C. difficile. 3. Antibiotics, Zosyn IV and vancomycin p.o. 4. ID consult. 5. GI consult. General Surgery was consulted last night and has reviewed CT abdomen. Per General Surgery patient does NOT appear to have ischemic bowel based on films and exam however will discuss with GI regarding more definitive imaging such as colonoscopy. 6. Nephrology consulted for hemodialysis orders. 7. NPO. Check lactic acid 8. DVT prophylaxis, SCDs. 9. Full Code. Called daughter and discussed above assessment and plan Oj Turcios MD DR: FEDERICO JOB#: [id number] CC: BURT
[2018-12-28 20:00] VITALS: BP 151/47
[2018-12-29] VITALS (19 sets, daily range): BP systolic 93–168; BP diastolic 33–66
--- NOTE | 2018-12-29 04:36 | Consultation ---
DATE OF CONSULTATION: 12/28/2018 NEPHROLOGY CONSULTATION CONSULTING PHYSICIAN: Modesto Romero M.D. ATTENDING PHYSICIAN: Oj Turcios M.D. REASON FOR CONSULTATION: End-stage renal disease, requiring hemodialysis. HISTORY OF PRESENT ILLNESS: This is an 83-year-old female, who has a recent history of right-sided nephrectomy for renal cell cancer. The patient apparently had CKD prior to the kidney removed. As a result, the patient has been dialysis dependent since nephrectomy. She usually gets hemodialysis every Tuesday, Tuesday, and Tuesday. Yesterday, she could not finish dialysis. She felt pain in the abdomen and gassy. She was brought into the emergency room and the workup showed elevated lipase at 529, possibility of pancreatitis, however, she had also some diarrhea and C. difficile colitis was also in the differential diagnosis. I was asked to see her to manage her end-stage renal disease. PAST MEDICAL HISTORY: Includes history of diabetes mellitus and hypertension. MEDICATIONS: Reviewed in the EMR. SOCIAL HISTORY: The patient lives with son. No history of smoking or alcohol abuse. ALLERGIES: Sulfa. REVIEW OF SYSTEMS: As above. The patient still makes a small amount of urine. PHYSICAL EXAMINATION: GENERAL: The patient is an elderly female, in no acute distress. VITAL SIGNS: Blood pressure is 123/49, pulse 65, temperature 97.9. At this point, however, the T-max was 102 and respiratory rate is 18. HEENT: Some pale conjunctivae. Anicteric sclerae. NECK: Supple. LUNGS: Clear to auscultation. CHEST: The patient has a right-sided PermCath. HEART: S1, S2 without murmurs or rubs. ABDOMEN: Soft and nontender. EXTREMITIES: No cyanosis or edema. LABORATORY FINDINGS: The CBC shows a WBC of 20,700, hematocrit 28.6, hemoglobin is 9.5, and platelets 273,000. The chemistry panel shows serum sodium of 142, potassium 3.8, chloride 101, CO2 31, BUN is 14, creatinine 3.8, and calcium is 8.6. ASSESSMENT: This is an 83-year-old female, who was admitted with some GI symptoms including abdominal pain and gassy and some elevated lipase, severe pancreatitis, but also some diarrhea, possibility of gastroenteritis and C. difficile colitis. She has a history of end-stage renal disease, on hemodialysis every Tuesday, Tuesday, and Tuesday. She is status post nephrectomy for renal cell carcinoma and has also history of diabetes and hypertension. PLAN: The patient will be dialyzed today. She will be started on antibiotics . Labs will be followed and further recommendations will be given based on those results. Thank you very much, Dr. Turcios, for this consultation. Modesto Romero M.D. DR: EL JOB#: [id number] CC: BURT
--- NOTE | 2018-12-29 04:36 | Consultation ---
DATE OF CONSULTATION: 12/28/2018 INFECTIOUS DISEASE CONSULTATION ATTENDING PHYSICIAN: Oj Turcios M.D. REFERRING PHYSICIAN: Oj Turcios M.D. REASON FOR CONSULTATION: Sepsis, fevers, leukocytosis. CHIEF COMPLAINT: The patient's chief complaint coming to the hospital is pancreatitis and sepsis, fevers, leukocytosis. HISTORY OF PRESENT ILLNESS: This is a very pleasant 83-year-old female who is non-Uruguayan speaking, who presents to [facility] with pancreatitis and abdominal discomfort. The patient was noted to have a lipase of 529 and however now it is 231. The patient was also noted to have a temperature of 102 and white count of 20,000, is actually 20.7 to be precise. Because of the sepsis syndrome, Infectious Disease consultation is requested. The differential was 94% neutrophils on the CBC. Blood cultures at this time pending. The patient did have diarrhea, but C. diff is negative. The patient currently is on Zosyn and vancomycin. The patient does have a hemodialysis line. The patient had a CT scan of the abdomen and pelvis, which showed portal venous gas and pneumatosis in the right hemicolon, could not rule out ischemia. In addition, it had a fluid collection, which was consistent with possible postsurgical changes, however, could not rule out, also may represent hematoma, seroma, or abscess. Infectious Disease consultation requested for antibiotic management. Case was discussed with Dr. Jimenez and Dr. Price from surgery. The patient will be placed on vancomycin and Zosyn pending workup. Case was discussed with the patient's daughter at the bedside and the RN. REVIEW OF SYSTEMS: CONSTITUTIONAL: The patient has generalized fatigue, but is responsive. She had a fever of 102 and chills. HEAD AND NECK: No head pain, neck pain. CARDIAC: No chest pain. GASTROINTESTINAL: She has abdominal discomfort. No nausea or vomiting. She did have diarrhea, which is earlier. PULMONARY: No congestion, shortness of breath, hemoptysis, or secretions. SKIN: No rash or itching. EXTREMITIES: No extremity pain. NEUROLOGIC: No seizures. GENITOURINARY: She is a hemodialysis patient. No Fisher. No CVA tenderness. No mention of night sweats. PAST MEDICAL HISTORY: The patient's past medical history includes the following. The patient has a past medical history of diabetes, history of hypertension, history of hyperlipidemia or dyslipidemia, history of congestive heart failure, diastolic dysfunction, sick sinus syndrome, pacemaker and WILLIAMS, history of renal cell carcinoma with recent nephrectomy that was only a few weeks ago earlier this month from the several weeks I believe. She has history of end-stage renal disease, on hemodialysis. PAST SURGICAL HISTORY: History of recent right nephrectomy. ALLERGIES: Include sulfa drugs. SOCIAL HISTORY: Negative for smoking, alcohol, or drug abuse. FAMILY HISTORY: Noncontributory. Negative for tuberculosis or cancer. MEDICATIONS: Upon reviewing the MAR, she is on the following medications. She is on vancomycin, Zosyn, polyethylene. She is on heparin, 2 g sodium chloride. She is on acetaminophen. She is on Zofran. She is on hydrocodone. She is on hydralazine. Outside medications noted and reconciliated. Antibiotics of vancomycin and Zosyn. PHYSICAL EXAMINATION: VITAL SIGNS: Temperature maximum 102.2, respiratory rate 20, T-max 102.2, current temperature 97.8, pulse rate 62, respiratory rate 19, blood pressure 133/72, saturation 96%. GENERAL: Alert, responsive, no acute distress. Seems to be oriented, but weak. HEAD AND NECK: Oral exam, no thrush. Eye exam, no icterus. Neck is supple. No JVD. Normocephalic. No icterus or thrush. Neck is supple. HEART: Regular. No obvious gallop or murmur. No friction rub. ABDOMEN: Soft. Positive bowel sounds. Some discomfort, but no rebound. LUNGS: Fairly clear bilaterally. No rhonchi or rales. SKIN: Nephrectomy surgical site looks clean and dry. There is no evidence of cellulitis or drainage. Skin exam, no other rash. MUSCULOSKELETAL: No septic arthritis. Legs are without cellulitis. PERIPHERAL VASCULAR: No cyanosis. GENITOURINARY: No Fisher. No CVA tenderness. LINES: Line sites without phlebitis. She has hemodialysis line. NEUROLOGIC: Intact. Nonfocal. LABORATORY AND DIAGNOSTIC DATA: Laboratory data as follows. On admission, white count 13.9, hemoglobin 9.6. Currently, white count is 20.7, hemoglobin 9.5. Creatinine is 3.8. LFTs were noted. Initial lipase 529, now is 231. UA was leukocyte esterase negative. Blood cultures are pending. ordered. Blood cultures have been ordered are pending. C. diff was done, which was negative. Imaging studies, I have ordered a chest x-ray for tomorrow. CT scan of the abdomen and pelvis showed a portal venous gas with pneumatosis in the right hemicolon, bowel ischemia cannot be excluded and also a fluid collection, which is likely postsurgical in nature, cannot exclude hematoma, seroma, or abscess. ASSESSMENT AND PLAN: 1. The patient has sepsis, fevers, leukocytosis. Source unclear at this time. Differential diagnosis includes infected pneumatosis. In discussion with Surgery, this is possibility, also must consider possibility of bowel ischemia. The patient to undergo colonoscopy. Other differential includes peritonitis, however, the patient clinically does not have peritonitis. The patient also has fluid collection, which certainly could be postoperative in nature. However, also differential diagnosis is intra-abdominal abscess and also possibly of hematoma versus seroma. At this time because of the sepsis, we will continue Zosyn and vancomycin pending blood culture results. Of note, the patient does have a hemodialysis line and that is other possibility in the differential for sepsis source. The patient did have pancreatitis, however, that seems to have improved. Continue vancomycin and Zosyn for sepsis. Check cultures laboratories. Followup chest x-ray. Blood cultures have been ordered. Surgery followup. GI is to do a colonoscopy tomorrow. The patient may need aspiration of the fluid collection if indicated. Continue vancomycin and Zosyn for now pending workup and vancomycin will be for MRSA coverage. Zosyn for Gram-negative anaerobic coverage. 2. The patient has end-stage renal disease, on hemodialysis. 3. The patient is status post right nephrectomy. Incision looked clean and dry and again the patient could have postsurgical changes from the right nephrectomy on the CT scan. 4. Anemia. 5. Renal carcinoma requiring right nephrectomy. 6. Urology followup. 7. Hypertension. 8. Hyperlipidemia. 9. Congestive heart failure. 10. Diastolic dysfunction. 11. End-stage renal disease, on hemodialysis and dialysis line. 12. Sick sinus syndrome. 13. Pacemaker. 14. WILLIAMS. 15. Diabetes. 16. Hypertension. 17. Diabetes and hypertension, treatment per primary . 18. Dyslipidemia. 19. Continue treatment per primary consultants. 20. Notes and records were noted. 21. Orders were entered. 22. Family history is noncontributory. 23. Social history is negative. 24. MAR was noted. 25. Case was discussed with RN. 26. Allergies to sulfa drugs. Case was discussed with Dr. Oj Turcios and also Dr. Price from Surgery. Ignacia Bills M.D. DR: Lorne JOB#: [id number] CC:
[2018-12-29] MEDS: Zosyn 2.25 gm in D5W 55ml IV SCH ×2 (06:55→14:57)
[2018-12-29] MEDS ORDERED: fentaNYL 100 mcg/2 mL IV ONE ×2 (06:58→10:51)
[2018-12-29] MEDS ORDERED: Propofol 200mg/20ml IV ONE (06:58)
--- NOTE | 2018-12-29 07:04 | Pre-Procedure Note/Attestation ---
Pre-Procedure Note/Attestation Complete Prior to Procedure Planned Procedure: not applicable Procedure Narrative: colonoscopy Indications for Procedure Pre-Operative Diagnosis: colitis Attestation I attest that I discussed the nature of the procedure; its benefits; risks and complications; and alternatives (and the risks and benefits of such alternatives ), prior to the procedure, with the patient (or the patient's legal fraud representative). I attest that, if there was a reasonable possibility of needing a blood transfusion, the patient (or the patient's legal fraud representative) was given the [facility] standardized written summary, pursuant to the Vamshi Lukas Blood Safety Act ([place] Health and Safety Code # 1645, as amended). I attest that I re-evaluated the patient just prior to the surgery and that there has been no change in the patient's H&P, except as documented below: Gianni Nice MD Dec 29, 2018 07:04
--- NOTE | 2018-12-29 07:16 | Anethesia Preoperative Eval ---
Anesthesia Pre-op PMH/ROS General Date of Evaluation: Dec 29, 2018 Time of Evaluation: 06:55 Anesthesiologist: Parker ASA Score: ASA 3 Mallampati Score Class I : Soft palate, uvula, fauces, pillars visible Class II: Soft palate, uvula, fauces visible Class III: Soft palate, base of uvula visible Class IV: Only hard plate visible Mallampati Classification: Class II Surgeon: Tex Diagnosis: Abdominal pain Surgical Procedure: Colonoscopy Anesthesia History: none Family History: no anesthesia problems Allergies: Coded Allergies: SULFA (SULFONAMIDE ANTIBIOTICS) (Verified Allergy, Unknown, 11/21/14) COPIED FROM UNCODED SECTION Medications: see eMAR Patient NPO?: Yes Past Medical History Cardiovascular: Reports: HTN; Denies: CAD, NC, valve dz, arrhythmia, other Pulmonary: Denies: asthma, COPD, WILLIAMS, other Gastrointestinal/Genitourinary: Reports: GERD, ESRD - on mHD Neurologic/Psychiatric: Reports: depression/anxiety; Denies: dementia, CVA, TIA, other Endocrine: Reports: hypothyroidism; Denies: DM, steroids, other HEENT: Denies: cataract (L), cataract (R), glaucoma, [place] (L), [place] (R), other Hematology/Immune: Reports: anemia; Denies: DVT, bleeding disorder, other Musculoskeletal/Integumentary: Reports: DJD Other: other - malnourished PMH Narrative: as above PSxH Narrative: Recent R nephrectomy and see H&P Anesthesia Pre-op Phys. Exam Physician Exam Last Vital Signs Date Time Temp Pulse Resp B/P (MAP) Pulse Ox O2 Delivery O2 Flow Rate FiO2 12/29/18 04:00 100.3 71 16 159/46 (83) 92 12/28/18 21:00 Room Air Constitutional: NAD Neurologic: CN 2-12 intact Cardiovascular: RRR Respiratory: CTA Gastrointestinal: other - Tender Airway Exam Mallampati Score: Class II MO: limited Neck: stiff ROM: limited Teeth: missing Dentures: no upper, no lower Anesthesia Pre-op A/P Labs Chemistry Test 12/28/18 16:00 Lactic Acid Level 1.40 mmol/L (0.4-2.0) Risk Assessment & Plan Assessment: ASA 3 Plan: MAC Status Change Before Surgery: No Pavel Canales MD Dec 29, 2018 07:16
--- NOTE | 2018-12-29 07:26 | Endoscopy Procedure Note ---
Endoscopy Procedure Note General Indication for Procedure: colitis Procedures Performed: colonoscopy Operative Findings/Diagnosis: colitis Specimen: yes Pt Tolerated Procedure Well: Yes Estimated Blood Loss: none Anesthesia Anesthesiologist: nancy Anesthesia: MAC Inserted Devices Implant(s) used?: No Quality Quality of Bowel Preparation: Good Did scope reach the cecum?: Yes Was there any complications?: No GI Core Measures 50 yrs or older w/o bx or poly: Not Applicable 10yrs. F/U not recommended: Not Applicable Gianni Nice MD Dec 29, 2018 07:26
[2018-12-29] MEDS ORDERED: fentaNYL 100 mcg/2 mL IV PRN (07:30)
--- NOTE | 2018-12-29 07:32 | Immediate Post-Op Evaluation ---
Immediate Post-Op Evalulation Immediate Post-Op Evalulation Procedure: Colonoscopy Date of Evaluation: Dec 29, 2018 Time of Evaluation: 07:31 IV Fluids: 200 Blood Products: none Estimated Blood Loss: none Urinary Output: none Blood Pressure Systolic: 164 Blood Pressure Diastolic: 68 Pulse Rate: 72 Respiratory Rate: 20 O2 Sat by Pulse Oximetry: 98 Temperature (Fahrenheit): 97.6 Pain Score (1-10): 1 Nausea: No Vomiting: No Complications none Patient Status: reacts, patent, none Hydration Status: adequate Pavel Canales MD Dec 29, 2018 07:32
--- NOTE | 2018-12-29 07:53 | 48 Hour Post Anesthesia Eval ---
Post Anesthesia Evaluation Procedure: Colonoscopy Date of Evaluation: Dec 29, 2018 Time of Evaluation: 07:51 Blood Pressure Systolic: 148 0: 76 Pulse Rate: 62 Respiratory Rate: 20 Temperature (Fahrenheit): 97.6 O2 Sat by Pulse Oximetry: 98 Airway: patent Nausea: No Vomiting: No Pain Intensity: 1 Hydration Status: adequate Cardiopulmonary Status: stable Mental Status/LOC: patient returned to baseline Follow-up Care/Observations: n/a Post-Anesthesia Complications: none Follow-up care needed: N/A Pavel Canales MD Dec 29, 2018 07:53
[2018-12-29 08:13] LABS: INR 1.2 (0.9-1.1)
[2018-12-29 08:14] LABS: HEMATOCRIT 28.5 % (37.0-47.0); HEMOGLOBIN 9.3 G/DL (12.0-16.0); MEAN CORPUSCULAR VOLUME 90 FL (80-99); PLATELET COUNT 275 K/UL (150-450); RED BLOOD COUNT 3.19 M/UL (4.20-5.40); RED CELL DISTRIBUTION WIDTH 16.4 % (11.6-14.8); WHITE BLOOD COUNT 21.9 K/UL (4.8-10.8)
[2018-12-29 08:18] LABS: ANION GAP 7 mmol/L (5-15); BLOOD UREA NITROGEN 32 mg/dL (7-18); CALCIUM 8.5 MG/DL (8.5-10.1); CARBON DIOXIDE 36 MMOL/L (21-32); CHLORIDE 98 MMOL/L (98-107); CREATININE 3.4 MG/DL (0.55-1.30); POTASSIUM 3.7 MMOL/L (3.5-5.1); SODIUM 141 MMOL/L (136-145)
[2018-12-29 08:23] LABS: ALANINE AMINOTRANSFERASE 17 U/L (12-78); ALBUMIN 2.3 G/DL (3.4-5.0); ALBUMIN/GLOBULIN RATIO 0.5 (1.0-2.7); ALKALINE PHOSPHATASE 81 U/L (46-116); ASPARTATE AMINO TRANSFERASE 42 U/L (15-37); BILIRUBIN,TOTAL 0.7 MG/DL (0.2-1.0)
[2018-12-29] MEDS: Nephrovite tab (Rena-Vite) ORAL SCH (08:34)
--- NOTE | 2018-12-29 09:38 | General Progress Note ---
Progress Note Progress Note Surgery: Leukocytosis worsening. c/o increased abdominal pain this AM. on exam more tender with rebound today. Had colonoscopy which identified severe ischemia of right colon. Spoke with GI, PCP, and consultants. Given findings recommend diagnostic laparoscopy, possible exploration, possible bowel resection,possible ostomy. will likely need right colectomy. spoke with patients daughter and patient at bedside. discussed findings and recommendation. daughter and patient expressed understanding and agree to proceed with surgery. I explained high risk nature of surgery with possibility of significant morbidity and possible mortality given medical condition, recent major surgery, and current medical condition/findings. will proceed to OR Tyrese Price Dec 29, 2018 09:38
--- NOTE | 2018-12-29 09:40 | Pre-Procedure Note/Attestation ---
Pre-Procedure Note/Attestation Complete Prior to Procedure Planned Procedure: not applicable Procedure Narrative: diagnostic laparoscopy, possible exploration, possible bowel resection,possible ostomy Indications for Procedure Pre-Operative Diagnosis: ischemic bowel Attestation I attest that I discussed the nature of the procedure; its benefits; risks and complications; and alternatives (and the risks and benefits of such alternatives ), prior to the procedure, with the patient (or the patient's legal customer service representative). I attest that, if there was a reasonable possibility of needing a blood transfusion, the patient (or the patient's legal customer service representative) was given the [facility] standardized written summary, pursuant to the Vamshi Lukas Blood Safety Act ([place] Health and Safety Code # 1645, as amended). I attest that I re-evaluated the patient just prior to the surgery and that there has been no change in the patient's H&P, except as documented below: Tyrese Price Dec 29, 2018 09:40
--- NOTE | 2018-12-29 10:45 | Urology Progress Note ---
Assessment/Plan Assessment/Plan 1. Abdominal pain. 2. Status post recent right nephrectomy, presumably for renal cell carcinoma. 3. Chronic kidney disease. 4. Proteinuria. 5. Urinary frequency history. 6. Rule out neurogenic bladder. 7. Hematuria. monitor clinically for surgery fluid collections can be addressed abx HD d/w Dr. Turcios Subjective Allergies: Coded Allergies: SULFA (SULFONAMIDE ANTIBIOTICS) (Verified Allergy, Unknown, 11/21/14) COPIED FROM UNCODED SECTION Subjective all noted, seen earlier, s/p colonoscopy, colitis noted, for exp lap Objective Last 24 Hour Vital Signs Date Time Temp Pulse Resp B/P (MAP) Pulse Ox O2 Delivery O2 Flow Rate FiO2 12/29/18 08:35 Room Air 12/29/18 08:00 99.9 68 17 152/47 (82) 92 12/29/18 07:53 62 20 98 12/29/18 07:52 98.0 69 20 155/58 95 Room Air 12/29/18 07:45 67 20 157/61 97 Room Air 12/29/18 07:40 67 20 168/61 100 Nasal Cannula 3 12/29/18 07:35 68 18 161/61 100 Nasal Cannula 3 12/29/18 07:33 98.7 67 14 164/66 99 Nasal Cannula 3 12/29/18 07:32 72 20 98 12/29/18 04:00 100.3 71 16 159/46 (83) 92 12/29/18 00:00 100.1 66 18 152/59 (90) 92 12/28/18 21:00 Room Air 12/28/18 20:00 97.2 68 21 151/47 (81) 100 12/28/18 16:00 97.8 62 19 133/72 (92) 96 12/28/18 12:00 98.1 61 18 102/46 (64) 96 Intake and Output 12/28/18 12/29/18 19:00 07:00 Intake Total 500 ml 4000 ml Output Total 2500 ml Balance 500 ml 1500 ml Intake Oral 4000 ml Other 500 ml Emesis 2500 ml # Voids 4 # Bowel Movements 8 3 Microbiology Date/Time Source Procedure Growth Status 12/28/18 09:30 Stool Clostridium difficile Toxin Assay - Final Complete 12/27/18 22:00 Rectum Received Current Medications Medications (Trade) Dose Ordered Sig/Kranthi Route PRN Reason Start Time Stop Time Status Last Admin Dose Admin Acetaminophen (Tylenol) 650 mg Q4H PRN ORAL Mild Pain (Pain Scale 1-3) 12/27/18 22:45 01/26/19 22:44 12/28/18 04:52 Acetaminophen/ Hydrocodone Bitart (Angier 5/325) 1 tab Q6H PRN ORAL For Pain 12/27/18 22:45 01/03/19 22:44 Dextrose (Dextrose 50%) 25 ml Q30M PRN IV Hypoglycemia 12/27/18 22:45 01/26/19 22:44 Dextrose (Dextrose 50%) 50 ml Q30M PRN IV Hypoglycemia 12/27/18 22:45 01/26/19 22:44 Fentanyl Citrate (Sublimaze 100 mcg/2 mL) 25 mcg Q10M PRN IV Moderate Pain (Pain Scale 4-6) 12/29/18 07:30 12/29/18 14:00 Heparin Sodium (Porcine) (Heparin Sod 1000 units/ml 10ml) 500 unit ONCE PRN IV FOR HD USE ONLY 12/28/18 08:30 12/29/18 23:59 Hydralazine HCl (Apresoline) 25 mg Q6HR PRN ORAL SBP > 160 12/27/18 22:45 01/26/19 22:44 12/28/18 00:28 Iopamidol (Isovue-300 100ml) 100 ml NOW PRN INJ Radiology Procedure 12/27/18 17:15 Ondansetron HCl (Zofran) 4 mg Q1H PRN IVP Nausea & Vomiting 12/29/18 07:30 12/29/18 14:00 Ondansetron HCl (Zofran) 4 mg Q6H PRN IVP Nausea & Vomiting 12/27/18 22:45 01/26/19 22:44 12/28/18 21:11 Piperacillin Sod/ Tazobactam Sod 2.25 gm/Dextrose 55 ml @ 110 mls/hr Q8HR IV 12/28/18 06:00 01/04/19 05:59 12/28/18 22:18 Sodium Chloride 1,000 ml @ 10 mls/hr Q24H IVLG 12/29/18 07:17 12/29/18 14:00 Sodium Chloride 1,000 ml @ 500 mls/hr Q2H PRN IVLG sbp<90 during hd 12/28/18 08:16 12/29/18 23:59 Vancomycin HCl (Vanco rx to dose) 1 ea DAILY PRN MISC Per rx protocol 12/28/18 17:00 01/27/19 16:59 Vancomycin HCl 1 gm/Dextrose 275 ml @ 183.708 mls/hr ONCE IVPB 12/29/18 18:00 12/29/18 20:00 Vitamin B Complex/ Vit C/Folic Acid (Nephrovite) 1 tab DAILY ORAL 12/28/18 13:15 01/27/19 13:14 12/28/18 13:49 Laboratory Tests 12/28/18 16:00: Lactic Acid Level 1.40 12/29/18 05:53: Lactic Acid Level 1.40, White Blood Count 21.9H, Red Blood Count 3.19L, Hemoglobin 9.3L, Hematocrit 28.5L, Mean Corpuscular Volume 90, Mean Corpuscular Hemoglobin 29.1, Mean Corpuscular Hemoglobin Concent 32.6, Red Cell Distribution Width 16.4H, Platelet Count 275, Mean Platelet Volume 7.9, Neutrophils (%) (Auto) , Lymphocytes (%) (Auto) , Monocytes (%) (Auto) , Eosinophils (%) (Auto) , Basophils (%) (Auto) , Neutrophils % (Manual) [Pending] , Lymphocytes % (Manual) [Pending], Platelet Estimate [Pending], Platelet Morphology [Pending], Prothrombin Time 12.7H, Prothromb Time International Ratio 1.2H, Activated Partial Thromboplast Time 36H, Sodium Level 141, Potassium Level 3.7, Chloride Level 98, Carbon Dioxide Level 36H, Anion Gap 7, Blood Urea Nitrogen 32H, Creatinine 3.4H, Estimat Glomerular Filtration Rate , Glucose Level 71L, Calcium Level 8.5, Total Bilirubin 0.7, Aspartate Amino Transf (AST/SGOT) 42H, Alanine Aminotransferase (ALT/SGPT) 17, Alkaline Phosphatase 81, Total Protein 7.3, Albumin 2.3L, Globulin 5.0, Albumin/Globulin Ratio 0.5L, Amylase Level 119H, Lipase 160, Random Vancomycin Level 14.3 Height (Feet): 5 Height (Inches): 5.00 Weight (Pounds): [address] films reviewed with radiologist fluid collections in the abdominal wall and renal fossa on the right side poss hematoma, seroma, or poss pus? Kvng Epperson MD Dec 29, 2018 10:45
[2018-12-29] MEDS ORDERED: Sodium Chloride 10ml vial INJ ONE (10:51)
[2018-12-29] MEDS ORDERED: Bupivacaine w/Epi 0.5% 30ml Vial INJ ONE (10:53)
[2018-12-29] MEDS ORDERED: NS Irrig 2000ml IRRIG ONE (10:55)
--- NOTE | 2018-12-29 11:11 | Immediate Post-Op Evaluation ---
Immediate Post-Op Evalulation Immediate Post-Op Evalulation Procedure: Open colon Resection Date of Evaluation: Dec 29, 2018 Time of Evaluation: 13:30 IV Fluids: 500 LR Blood Products: 0 Estimated Blood Loss: 50 Urinary Output: 350 Blood Pressure Systolic: 131 Blood Pressure Diastolic: 72 Pulse Rate: 67 Respiratory Rate: 10 - Mech Vent O2 Sat by Pulse Oximetry: 100 Temperature (Fahrenheit): 98.4 Pain Score (1-10): 0 Nausea: No Vomiting: No Complications 0 Patient Status: no response, patent, ventilated, none Hydration Status: adequate Given Within 1 Hr of Incision: Yes Guzman Feldman MD Dec 29, 2018 11:11
[2018-12-29] MEDS ORDERED: Zemuron 50mg/5ml Inj IV ONE (11:19)
--- NOTE | 2018-12-29 13:19 | Brief Operative Note ---
Immediate Post Operative Note Operative Note Pre-op Diagnosis: ischemic bowel Procedure: 1. diagnostic laparoscopy 2. exploratory laparotomy 3. right colectomy 4. drainage of abdominal wall fluid collection 5. evacuation of retroperitoneal hematoma Post-op Diagnosis: same as pre-op plus - ischemia right colon; retroperitoneal hematoma; abdominal wall fluid collection Surgeon: jennifer Anesthesiologist: aleksandr Anesthesia: general Specimen: yes - right colectomy Complications: none Condition: stable Fluids: see records Estimated Blood Loss: volume - 100 Drains: LULA Implant(s) used?: No Tyrese Price Dec 29, 2018 13:19
--- NOTE | 2018-12-29 13:45 | 48 Hour Post Anesthesia Eval ---
Post Anesthesia Evaluation Procedure: Open colon Resection Date of Evaluation: Dec 29, 2018 Time of Evaluation: 14:53 Blood Pressure Systolic: 122 0: 63 Pulse Rate: 65 Respiratory Rate: 10 - Mech Vent Temperature (Fahrenheit): 98 O2 Sat by Pulse Oximetry: 100 Airway: patent Nausea: No Vomiting: No Pain Intensity: 2 Hydration Status: adequate Cardiopulmonary Status: Stable Mental Status/LOC: other - Intubated Follow-up Care/Observations: 0 Post-Anesthesia Complications: 0 Follow-up care needed: N/A Guzman Feldman MD Dec 29, 2018 13:45
[2018-12-29] MEDS ORDERED: Morphine Sulfate 2mg/ml Inj(IV/IM USE ONLY) IVP PRN (14:45)
[2018-12-29] MEDS ORDERED: D5NS 1,000 ML IV SCH (15:00)
--- NOTE | 2018-12-29 15:45 | Procedure Note ---
DATE OF PROCEDURE: 12/29/2018 SURGEON: Gianni Nice M.D. REFERRING PHYSICIAN: Oj Turcios M.D. PROCEDURE: Colonoscopy with biopsy and polypectomy. ANESTHESIA: Per Dr. Canales. INSTRUMENT: Olympus adult flexible colonoscope. INDICATION: Colitis. REASON FOR PROCEDURE: The procedure, risks, benefits, and possible consequences, including hemorrhage, aspiration, perforation and infection, and alternative treatments, were explained to the patient/legal guardian by Dr. Gianni Nice and the patient/legal guardian understood and accepted these risks. PROCEDURE IN DETAIL: After informed consent was obtained and the patient was adequately sedated, first rectal exam was performed, which was positive for internal hemorrhoids. Then, the scope was advanced from the rectum into the cecum documented by the appendiceal orifice, ileocecal valve, and right upper quadrant palpation. Quality of prep was good. The patient had severe ischemic looking colon in the ascending colon. Multiple biopsy from this area was obtained. The patient had evidence of diverticulosis in the left colon. There was one polyp measured about 6 mm in the sigmoid colon removed with the cold snare polypectomy technique, but unfortunately we lost the polyp to suction. Retroflexion of rectum showed evidence of internal hemorrhoids. SUMMARY OF FINDINGS: 1. Severe ischemic changes of the right colon. Biopsy was obtained and surgical team was informed. 2. Diverticulosis. 3. One colonic polyp removed. 4. Internal hemorrhoids. RECOMMENDATIONS: 1. Follow up pathology. 2. Call the surgeon and primary care team notify the findings. The patient will follow with the Surgery today. 3. Continue antibiotics for now. I want to thank Dr. Oj Turcios for this kind referral. Gianni Nice M.D. DR: ARNEL JOB#: [id number] CC:
--- NOTE | 2018-12-29 15:56 | Nephrology Progress Note ---
Assessment/Plan Problem List: (1) ESRD (end stage renal disease) on dialysis (2) Ischemic colon (3) Anemia (4) DM (diabetes mellitus) (5) HTN (hypertension) Plan HD tomorrow abxs wean if tolerated follow labs Discussed with Dr Price Subjective Subjective all noted Objective Objective Last 24 Hour Vital Signs Date Time Temp Pulse Resp B/P (MAP) Pulse Ox O2 Delivery O2 Flow Rate FiO2 12/29/18 15:15 64 12 100 12/29/18 15:00 67 13 142/48 (79) 100 12/29/18 14:00 66 10 138/45 (76) 100 12/29/18 13:45 65 10 100 12/29/18 13:41 67 10 100 12/29/18 13:21 99.8 64 10 134/43 (73) 100 12/29/18 13:10 67 12 100 12/29/18 08:35 Room Air 12/29/18 08:00 99.9 68 17 152/47 (82) 92 12/29/18 07:53 62 20 98 12/29/18 07:52 98.0 69 20 155/58 95 Room Air 12/29/18 07:45 67 20 157/61 97 Room Air 12/29/18 07:40 67 20 168/61 100 Nasal Cannula 3 12/29/18 07:35 68 18 161/61 100 Nasal Cannula 3 12/29/18 07:33 98.7 67 14 164/66 99 Nasal Cannula 3 12/29/18 07:32 72 20 98 12/29/18 04:00 100.3 71 16 159/46 (83) 92 12/29/18 00:00 100.1 66 18 152/59 (90) 92 12/28/18 21:00 Room Air 12/28/18 20:00 97.2 68 21 151/47 (81) 100 12/28/18 16:00 97.8 62 19 133/72 (92) 96 Intake and Output 12/28/18 12/29/18 18:59 06:59 Intake Total 500 ml 4000 ml Output Total 2500 ml Balance 500 ml 1500 ml Intake Oral 4000 ml Other 500 ml Emesis 2500 ml # Voids 4 # Bowel Movements 8 3 Laboratory Tests 12/28/18 16:00: Lactic Acid Level 1.40 12/29/18 05:53: Lactic Acid Level 1.40, White Blood Count 21.9H, Red Blood Count 3.19L, Hemoglobin 9.3L, Hematocrit 28.5L, Mean Corpuscular Volume 90, Mean Corpuscular Hemoglobin 29.1, Mean Corpuscular Hemoglobin Concent 32.6, Red Cell Distribution Width 16.4H, Platelet Count 275, Mean Platelet Volume 7.9, Neutrophils (%) (Auto) , Lymphocytes (%) (Auto) , Monocytes (%) (Auto) , Eosinophils (%) (Auto) , Basophils (%) (Auto) , Differential Total Cells Counted 100, Neutrophils % (Manual) 91H, Lymphocytes % (Manual) 7L, Monocytes % (Manual) 2, Eosinophils % (Manual) 0, Basophils % (Manual) 0, Band Neutrophils 0 , Platelet Estimate Adequate, Platelet Morphology Normal, Hypochromasia 2+, Anisocytosis 1+, Prothrombin Time 12.7H, Prothromb Time International Ratio 1.2H , Activated Partial Thromboplast Time 36H, Sodium Level 141, Potassium Level 3.7 , Chloride Level 98, Carbon Dioxide Level 36H, Anion Gap 7, Blood Urea Nitrogen 32H, Creatinine 3.4H, Estimat Glomerular Filtration Rate , Glucose Level 71L, Calcium Level 8.5, Total Bilirubin 0.7, Aspartate Amino Transf (AST/SGOT) 42H, Alanine Aminotransferase (ALT/SGPT) 17, Alkaline Phosphatase 81, Total Protein 7.3, Albumin 2.3L, Globulin 5.0, Albumin/Globulin Ratio 0.5L, Amylase Level 119H , Lipase 160, Random Vancomycin Level 14.3 Height (Feet): 5 Height (Inches): 5.00 Weight (Pounds): 136 Cardiovascular: normal rate Respiratory/Chest: rhonchi - bilaterally Extremities: trace edema Modesto Romero MD Dec 29, 2018 15:56
[2018-12-29] MEDS: D5NS 1,000 ML IV SCH (16:28)
--- NOTE | 2018-12-29 16:51 | Diagnostic Imaging Report ---
Indication: Dyspnea Technique: One view of the chest Comparison: 11/21/2014 Findings: There is free air under the right hemidiaphragm. There is opacification of the left lung base. There is some perihilar atelectasis or consolidation. There is an endotracheal tube in place, tip projected approximately 2 cm above the naveed. There is a nasogastric tube in place. There is a left chest pacemaker. There is a right jugular tunneled dialysis catheter. Impression: Pneumoperitoneum. Per ICU charge nurse, patient had recent laparotomy so this is not an unexpected finding Left basilar opacification, likely combination of pleural fluid and consolidation. Tubes and lines as described
[2018-12-29] MEDS ORDERED: Vancomycin 1gm/D5W 275ml IVPB SCH ×2 (18:00)
[2018-12-29] MEDS ORDERED: Vancomycin 1 GM in D5W 275 ML IVPB ONE (18:00)
--- NOTE | 2018-12-29 19:04 | Internal Med Progress Note ---
Subjective Physician Name Oj Turcios Attending Physician Oj Turcios MD Current Medications Medications (Trade) Dose Ordered Sig/Kranthi Route PRN Reason Start Time Stop Time Status Last Admin Dose Admin Dextrose (Dextrose 50%) 25 ml Q30M PRN IV Hypoglycemia 12/29/18 16:15 01/26/19 22:44 Dextrose (Dextrose 50%) 50 ml Q30M PRN IV Hypoglycemia 12/29/18 16:15 01/26/19 22:44 Dextrose/Sodium Chloride 1,000 ml @ 50 mls/hr Q20H IV 12/29/18 16:30 01/28/19 16:29 Heparin Sodium (Porcine) (Heparin Sod 1000 units/ml 10ml) 500 unit ONCE IV 12/30/18 06:00 12/30/18 21:00 Morphine Sulfate (Morphine Sulfate) 2 mg Q2H PRN IVP For Pain 12/29/18 16:45 01/05/19 14:44 Ondansetron HCl (Zofran) 4 mg Q6H PRN IVP Nausea & Vomiting 12/29/18 16:45 01/26/19 22:44 Piperacillin Sod/ Tazobactam Sod 2.25 gm/Dextrose 55 ml @ 110 mls/hr Q8HR IV 12/29/18 22:00 01/03/19 05:59 Sodium Chloride 1,000 ml @ 500 mls/hr Q2H PRN IVLG sbp<90 during hd 12/30/18 06:00 01/29/19 05:59 Vancomycin HCl (Vanco rx to dose) 1 ea DAILY PRN MISC Per rx protocol 12/30/18 09:00 01/27/19 16:59 Vancomycin HCl 1 gm/Dextrose 275 ml @ 183.708 mls/hr ONCE ONCE IVPB 12/29/18 18:00 12/29/18 19:29 12/29/18 17:45 Vitamin B Complex/ Vit C/Folic Acid (Nephrovite) 1 tab DAILY ORAL 12/30/18 09:00 01/27/19 13:14 Allergies: Coded Allergies: SULFA (SULFONAMIDE ANTIBIOTICS) (Verified Allergy, Unknown, 11/21/14) COPIED FROM UNCODED SECTION Subjective s/p colonoscopy at 7 AM showing ---> ischemic bowel Taken to OR after for Colectomy s/p 1. diagnostic laparoscopy 2. exploratory laparotomy 3. right colectomy 4. drainage of abdominal wall fluid collection 5. evacuation of retroperitoneal hematoma Now intubated. awake. not on pressors ROS unobtainable bc intubated Objective Last Vital Signs Date Time Temp Pulse Resp B/P (MAP) Pulse Ox O2 Delivery O2 Flow Rate FiO2 12/29/18 19:00 62 13 156/60 (92) 100 12/29/18 17:16 60 12/29/18 17:00 99.5 12/29/18 16:00 Mechanical Ventilator 12/29/18 07:40 3 Laboratory Tests Test 12/29/18 05:53 12/29/18 16:10 White Blood Count 21.9 K/UL (4.8-10.8) H Red Blood Count 3.19 M/UL (4.20-5.40) L Hemoglobin 9.3 G/DL (12.0-16.0) L Hematocrit 28.5 % (37.0-47.0) L Mean Corpuscular Volume 90 FL (80-99) Mean Corpuscular Hemoglobin 29.1 PG (27.0-31.0) Mean Corpuscular Hemoglobin Concent 32.6 G/DL (32.0-36.0) Red Cell Distribution Width 16.4 % (11.6-14.8) H Platelet Count 275 K/UL (150-450) Mean Platelet Volume 7.9 FL (6.5-10.1) Neutrophils (%) (Auto) % (45.0-75.0) Lymphocytes (%) (Auto) % (20.0-45.0) Monocytes (%) (Auto) % (1.0-10.0) Eosinophils (%) (Auto) % (0.0-3.0) Basophils (%) (Auto) % (0.0-2.0) Differential Total Cells Counted 100 Neutrophils % (Manual) 91 % (45-75) H Lymphocytes % (Manual) 7 % (20-45) L Monocytes % (Manual) 2 % (1-10) Eosinophils % (Manual) 0 % (0-3) Basophils % (Manual) 0 % (0-2) Band Neutrophils 0 % (0-8) Platelet Estimate Adequate Platelet Morphology Normal Hypochromasia 2+ Anisocytosis 1+ Prothrombin Time 12.7 SEC (9.30-11.50) H Prothromb Time International Ratio 1.2 (0.9-1.1) H Activated Partial Thromboplast Time 36 SEC (23-33) H Sodium Level 141 MMOL/L (136-145) Potassium Level 3.7 MMOL/L (3.5-5.1) Chloride Level 98 MMOL/L (98-107) Carbon Dioxide Level 36 MMOL/L (21-32) H Anion Gap 7 mmol/L (5-15) Blood Urea Nitrogen 32 mg/dL (7-18) H Creatinine 3.4 MG/DL (0.55-1.30) H Estimat Glomerular Filtration Rate mL/min (>60) Glucose Level 71 MG/DL (74-106) L Lactic Acid Level 1.40 mmol/L (0.4-2.0) Calcium Level 8.5 MG/DL (8.5-10.1) Total Bilirubin 0.7 MG/DL (0.2-1.0) Aspartate Amino Transf (AST/SGOT) 42 U/L (15-37) H Alanine Aminotransferase (ALT/SGPT) 17 U/L (12-78) Alkaline Phosphatase 81 U/L (46-116) Total Protein 7.3 G/DL (6.4-8.2) Albumin 2.3 G/DL (3.4-5.0) L Globulin 5.0 g/dL Albumin/Globulin Ratio 0.5 (1.0-2.7) L Amylase Level 119 U/L (25-115) H Lipase 160 U/L (73-393) Random Vancomycin Level 14.3 ug/mL Arterial Blood pH 7.536 (7.350-7.450) Arterial Blood Partial Pressure CO2 40.0 mmHg (35.0-45.0) Arterial Blood Partial Pressure O2 268.1 mmHg (75.0-100.0) H Arterial Blood HCO3 33.1 mmol/L (22.0-26.0) H Arterial Blood Oxygen Saturation 98.7 % (95-100) Arterial Blood Base Excess 9.7 (-2-2) *H Christian Test Positive Microbiology Date/Time Source Procedure Growth Status 12/28/18 09:30 Stool Clostridium difficile Toxin Assay - Final Complete 12/27/18 22:00 Rectum Received Intake and Output 12/28/18 12/29/18 18:59 06:59 Intake Total 500 ml 4000 ml Output Total 2500 ml Balance 500 ml 1500 ml Intake Oral 4000 ml Other 500 ml Emesis 2500 ml # Voids 4 # Bowel Movements 8 3 Objective gen - NAD. awake. intubated HEENT - NC/AT. NGT. ETT in place CVS - RRR. Nl s1,2 Lungs - CTA b/l Abd - covered with dressing. c/d/i. R LULA drain Ext - no c/c/e Assessment/Plan Assessment/Plan ASSESSMENT: 1. Ischemic bowel s/p 1. diagnostic laparoscopy,2. exploratory laparotomy,,3. right colectomy,4. drainage of abdominal wall fluid collection,5. evacuation of retroperitoneal hematoma (12/29) 2. Elevated lipase-may be falsely elevated lipase given the patient is not very tender over epigastric region versus acute pancreatitis. 3. Abdominal pain possibly also related to postsurgical abdominal infection. 4. End-stage renal disease, on hemodialysis. 5. Recent right kidney nephrectomy for renal cell carcinoma. 6. Diabetes. 7. Hypertension. 8. Hyperlipidemia. 9. pneumatosis which may be related to infectious colitis vs ischemic bowel PLAN: 1. transfer to ICU; intubated 2. IVF - D5NS @ 50cc/hr 3. Antibiotics, Zosyn and Vanco IV 4. ID consult. 5. Surgery recs appreciated; 6. Nephrology consulted for hemodialysis orders. 7. NPO. 8. Morphine 2mg IV Q 2hrs prn pain DVT prophylaxis, SCDs. 9. Full Code. Oj Turcios MD Dec 29, 2018 19:04
[2018-12-29] MEDS: Morphine Sulfate 2mg/ml Inj(IV/IM USE ONLY) IVP PRN ×2 (20:02→23:31)
--- NOTE | 2018-12-29 22:00 | Operative Note - Dictated ---
DATE OF OPERATION: 12/29/2018 PREOPERATIVE DIAGNOSIS: Ischemic bowel. POSTOPERATIVE DIAGNOSES: 1. Ischemic right colon and hepatic flexure. 2. Retroperitoneal hematoma. 3. Abdominal wall fluid collection. OPERATIONS PERFORMED: 1. Diagnostic laparoscopy. 2. Exploratory laparotomy. 3. Right colectomy. 4. Drainage of abdominal wall fluid collection. 5. Evacuation of retroperitoneal hematoma. 6. Peritoneal and retroperitoneal right drain placement. SURGEON: Tyrese Price M.D. RAILROAD DISPATCHER: None. ANESTHESIOLOGIST: Guzman Feldman M.D. ANESTHESIA: General MANAGER COPY. SPECIMENS: 1. Right colectomy. 2. Cultures. COMPLICATIONS: None. CONDITION: Stable. FLUIDS: Please see anesthesia records. ESTIMATED BLOOD LOSS: 100 mL. DRAINS: LULA. IMPLANTS: None. INDICATIONS FOR PROCEDURE: This is an 83-year-old female who on 12/11/2018 had a right nephrectomy at [facility] for a large tumor. She had been discharged thereafter and had been home with family, but began to feel unwell with abdominal pain. She came to [facility] for evaluation at which time was identified to have a leukocytosis and on CT scan right colon pneumatosis with portal venous gas and retroperitoneal fluid collection as well as abdominal wall fluid collection. The patient was unable to be transferred back to [facility] given they want diversion. The patient was admitted to [facility], placed on IV antibiotics, and appropriate workup began at which time a leukocytosis was noted to be worsening. A colonoscopy was performed and the patient was identified to have ischemic colitis. At this time, discussion was had with the patient and her daughter in detail regarding the above findings and recommendations of exploration and likely colectomy/bowel resection, possible ostomy. A long discussion was had with the patient and her family regarding her comorbidities, her complicated prior and recent surgery, the severity of the findings seen on the CAT scan and the colonoscopy and the high risk nature of the surgery with significant risk for morbidity and even potentially mortality. After explaining this in detail, consent was obtained. Family expressed desire for all interventions, all life-saving interventions to be performed. Furthermore, I spoken to the patient's urologist who had performed the surgery at [facility] and was informed that it was a complex surgery given the large size of the mass, but successful. Furthermore, I was informed that the patient given her comorbidities, did not tolerate the anesthesia and surgery well and required intensive care unit stay postoperatively with remaining intubated postoperatively and on pressors. Fortunately, she recovered and was discharged safely. Given these findings, I discussed with the patient and family preoperatively that there is a high likelihood and possibility that the patient remained intubated postoperatively and go to the intensive care unit for recovery prior to extubation and to ensure that she is safe. OPERATIVE NOTE: The patient was taken to the operating room and placed on the operating table in supine position bilateral arms out. All bony prominences were well padded. SCDs were placed. Preoperative time-out was taken identifying the patient, procedure, operative staff, and surgical staff. The patient was started on scheduled IV antibiotics for acute active inflammatory process. General anesthesia was induced and the patient was intubated. A Fisher catheter was inserted using standard sterile sterile technique. The abdomen was clipped, prepped, and draped in standard surgical fashion. A midline infraumbilical incision was made using a fresh #15 blade and carried down to the fascia, which was elevated and incised. Entry into the abdomen was obtained using the open Maureen technique without complication. A 12 mm Maureen trocar was inserted and the abdomen was insufflated to 12 to 15 mmHg. The patient tolerated the insufflation well. Laparoscope was inserted and the abdomen was inspected. The omentum was draped over the majority of the abdomen. Therefore, a 5 mm midline port was placed under direct visualization without complication. A laparoscopic grasper was used and the omentum was mobilized off the right side of the abdomen at which time ischemic portions of ascending colon and a significant ischemic portion of the hepatic flexure were identified. There was some murky serous fluid in the right upper quadrant around the liver as well. The hepatic flexure was high up underneath the liver and the area of ischemia was fairly significant and very thin walled. At this time, given these findings, decision was made to convert into open exploration given the location of the ischemia, right hepatic flexure with almost near circumferential ischemia, there was concerns for perforating the colon and significantly contaminating the procedure if continued laparoscopically given the area that needs to be grasped and mobilized. Furthermore, there was significant inflammatory changes around the peritoneal lining in the right side of the abdomen tracking towards the right retroperitoneum where the prior nephrectomy was performed. At this time, the abdomen was desufflated and trocars were removed. The infraumbilical incision was carried around to the left of the umbilicus and towards the mid abdomen. Incision was carried down through subcutaneous tissue and fascia using electrocautery. Once abdomen was opened, a Bookwalter retractor was placed and exposure was obtained. The omentum was inspected and otherwise normal and placed in the left upper quadrant. The stomach was identified and NG tube was noted in stomach with no abnormalities of the stomach. The small bowel was run from the ligament of Treitz to the ileocecal valve without any abnormalities. The ascending colon was identified with significant inflammatory changes and area of ischemia with hepatic flexure having significant area of almost near circumferential ischemia and very thin wall concerning for near perforation. The mid transverse colon to the splenic flexure was otherwise healthy. The portions of the descending colon that could be identified were otherwise healthy as well as the sigmoid colon. The patient did have a very large right adnexal cyst that was simple fluid cyst. Furthermore, the patient had a subcutaneous fluid collection in the right abdominal wall. At this time, appropriate retractors were placed for exposure to perform a right colectomy. The liver and gallbladder were otherwise healthy as well. The appendix was identified and the terminal ileum. At this time approximately 10 centimeters from the ileocecal valve a window was made in the mesentery of the ileum. A 55 mm linear stapler was used and the ileum was divided. The mesentery was then divided towards the cecum with a Thunderbeat energy device. The white line of Toldt was then identified and very inflamed and thickened through majority of the retroperitoneum at this level. White line of Toldt was incised and cecum and ascending colon was mobilized. Following this, the hepatic flexure was mobilized. At this time, the right colic artery was identified circumferentially, dissected out and divided using #0 silk ties. The remaining of the mesentery was divided using a Thunderbeat energy device. Once the terminal ileum, appendix, cecum, ascending colon, and hepatic flexure were clearly dissected out and mesentery was divided, a satisfactory viable portion of the transverse colon was identified and divided using a 75 mm linear stapler. The contained specimen was then sent to pathology for review. No perforation was identified, but significant portions of transmural full-thickness necrosis were identified mainly in the hepatic flexure. During the mobilization of the ascending colon near the hepatic flexure, the retroperitoneum was identified to be violated and a significant hematoma was noted in the prior nephrectomy site. Hematoma was evacuated and the cavity was irrigated with copious amounts of warm normal saline. Furthermore, the anterior abdominal wall fluid collection was easily identified and palpable and noticeable and extensively large. With a small incision in the peritoneum, posterior rectus sheath was identified and evacuated. Cultures were taken of these fluid collection. Once all fluid collections and hematoma were evacuated, abdomen was inspected and irrigated with copious amounts of warm normal saline. At this time, the viable ends of the ileum and transverse colon were identified and the right colectomy completed and therefore decision was made to safely perform a [id number] stapled linear anastomosis. A stay suture was placed approximately 1.5 cm away from the distal staple lines on the colon and ileum and the two portions of bowel were approximated for anastomosis. An enterotomy was made in the small bowel and colon and a linear 55 mm stapler was inserted and fired. The staple line was inspected and noted to be viable without any bleeding. Following this, the enterotomy defect was closed in a two-layer fashion beginning with a 3-0 Vicryl suture followed by a Lembert 3-0 silk interrupted sutures. The staple line was reinforced anteriorly with 3-0 silk interrupted Lembert sutures. At this time, the abdomen was inspected, hemostasis was identified. All fluid collections were evacuated. Irrigation had been performed. Anastomosis was patent and stable and the remainder of the bowels were viable including the anastomosis, decision was made to begin the closure of the procedure. The bowel was placed in anatomic position. Omentum was draped over the bowel and the fascia incision was reapproximated using 0 looped PDS suture. The remaining skin incision and subcutaneous tissue were irrigated with copious warm saline and the skin incision was reapproximated using surgical anjel. The patient tolerated the procedure well, was left intubated and taken to the intensive care unit for recovery. Of note, a 19 mm round Parminder drain was placed through the right lower quadrant into the abdomen and positioned appropriately from the right gutter to the right lower quadrant. Tyrese Price M.D. DR: AGNES JOB#: [id number] CC: BURT
[2018-12-29] MEDS: Piperacillin/Tazobactam 2.25 GM in D5W 55 ML IV SCH (22:02)
--- NOTE | 2018-12-29 23:39 | Infectious Diseases Prog Note ---
Assessment/Plan Assessment/Plan A) 1) sepsis, leukocytosis, fevers, diarrhea, abdominal discomfort, ? pna, vent 2) ischemic right colon, hematoma, intra-abdominal fluid collection 3) s/p right nephrectomy, hx of renal CA 4) esrd, hd, has HD line, ? infected line 5) pmh noted 6) allergies - nkda P) 1) vancomycin and zosyn 2) s/p right colectomy and hematoma/fluid removal 3) f/u on cultures, labs and chest x-ray 4) icu care 5) monitor labs and chest x-ray 6) will f/u Subjective Constitutional: Reports: other - on vent s/p surgery ; Denies: fever HEENT: Reports: congestion Respiratory: Reports: shortness of breath Cardiovascular: Denies: chest pain Gastrointestinal/Abdominal: Denies: nausea, vomiting, diarrhea Allergies: Coded Allergies: SULFA (SULFONAMIDE ANTIBIOTICS) (Verified Allergy, Unknown, 11/21/14) COPIED FROM UNCODED SECTION Objective Vital Signs Last 24 Hour Vital Signs Date Time Temp Pulse Resp B/P (MAP) Pulse Ox O2 Delivery O2 Flow Rate FiO2 12/29/18 22:50 72 15 40 12/29/18 22:00 72 14 93/36 (55) 100 12/29/18 21:09 68 10 40 12/29/18 21:00 71 13 98/35 (56) 100 12/29/18 21:00 Mechanical Ventilator 12/29/18 21:00 98.5 12/29/18 20:00 98.9 72 16 106/38 (60) 100 12/29/18 19:43 71 13 50 12/29/18 19:00 62 13 156/60 (92) 100 12/29/18 18:00 64 13 145/56 (85) 100 12/29/18 17:16 66 12 60 12/29/18 17:00 99.5 68 13 144/54 (84) 100 12/29/18 16:00 65 13 140/50 (80) 100 12/29/18 16:00 Mechanical Ventilator 12/29/18 16:00 70 12/29/18 15:15 64 12 80 12/29/18 15:00 67 13 142/48 (79) 100 12/29/18 14:00 66 10 138/45 (76) 100 12/29/18 13:45 65 10 100 12/29/18 13:41 67 10 100 12/29/18 13:21 99.8 64 10 134/43 (73) 100 12/29/18 13:10 67 12 100 12/29/18 08:35 Room Air 12/29/18 08:00 99.9 68 17 152/47 (82) 92 12/29/18 07:53 62 20 98 12/29/18 07:52 98.0 69 20 155/58 95 Room Air 12/29/18 07:45 67 20 157/61 97 Room Air 12/29/18 07:40 67 20 168/61 100 Nasal Cannula 3 12/29/18 07:35 68 18 161/61 100 Nasal Cannula 3 12/29/18 07:33 98.7 67 14 164/66 99 Nasal Cannula 3 12/29/18 07:32 72 20 98 12/29/18 04:00 100.3 71 16 159/46 (83) 92 12/29/18 00:00 100.1 66 18 152/59 (90) 92 Height (Feet): 5 Height (Inches): 5.00 Weight (Pounds): 136 General Appearance: other - on vent, alert, no pressors HEENT: normocephalic, atraumatic, anicteric Respiratory/Chest: crackles/rales, rhonchi - bilaterally Cardiovascular: normal rate, regular rhythm Abdomen: non distended, hypoactive bowel sounds Microbiology Date/Time Source Procedure Growth Status 12/28/18 09:30 Stool Clostridium difficile Toxin Assay - Final Complete 12/27/18 22:00 Rectum Received Laboratory Tests Test 12/29/18 05:53 12/29/18 16:10 White Blood Count 21.9 K/UL (4.8-10.8) H Red Blood Count 3.19 M/UL (4.20-5.40) L Hemoglobin 9.3 G/DL (12.0-16.0) L Hematocrit 28.5 % (37.0-47.0) L Mean Corpuscular Volume 90 FL (80-99) Mean Corpuscular Hemoglobin 29.1 PG (27.0-31.0) Mean Corpuscular Hemoglobin Concent 32.6 G/DL (32.0-36.0) Red Cell Distribution Width 16.4 % (11.6-14.8) H Platelet Count 275 K/UL (150-450) Mean Platelet Volume 7.9 FL (6.5-10.1) Neutrophils (%) (Auto) % (45.0-75.0) Lymphocytes (%) (Auto) % (20.0-45.0) Monocytes (%) (Auto) % (1.0-10.0) Eosinophils (%) (Auto) % (0.0-3.0) Basophils (%) (Auto) % (0.0-2.0) Differential Total Cells Counted 100 Neutrophils % (Manual) 91 % (45-75) H Lymphocytes % (Manual) 7 % (20-45) L Monocytes % (Manual) 2 % (1-10) Eosinophils % (Manual) 0 % (0-3) Basophils % (Manual) 0 % (0-2) Band Neutrophils 0 % (0-8) Platelet Estimate Adequate Platelet Morphology Normal Hypochromasia 2+ Anisocytosis 1+ Prothrombin Time 12.7 SEC (9.30-11.50) H Prothromb Time International Ratio 1.2 (0.9-1.1) H Activated Partial Thromboplast Time 36 SEC (23-33) H Sodium Level 141 MMOL/L (136-145) Potassium Level 3.7 MMOL/L (3.5-5.1) Chloride Level 98 MMOL/L (98-107) Carbon Dioxide Level 36 MMOL/L (21-32) H Anion Gap 7 mmol/L (5-15) Blood Urea Nitrogen 32 mg/dL (7-18) H Creatinine 3.4 MG/DL (0.55-1.30) H Estimat Glomerular Filtration Rate mL/min (>60) Glucose Level 71 MG/DL (74-106) L Lactic Acid Level 1.40 mmol/L (0.4-2.0) Calcium Level 8.5 MG/DL (8.5-10.1) Total Bilirubin 0.7 MG/DL (0.2-1.0) Aspartate Amino Transf (AST/SGOT) 42 U/L (15-37) H Alanine Aminotransferase (ALT/SGPT) 17 U/L (12-78) Alkaline Phosphatase 81 U/L (46-116) Total Protein 7.3 G/DL (6.4-8.2) Albumin 2.3 G/DL (3.4-5.0) L Globulin 5.0 g/dL Albumin/Globulin Ratio 0.5 (1.0-2.7) L Amylase Level 119 U/L (25-115) H Lipase 160 U/L (73-393) Random Vancomycin Level 14.3 ug/mL Arterial Blood pH 7.536 (7.350-7.450) Arterial Blood Partial Pressure CO2 40.0 mmHg (35.0-45.0) Arterial Blood Partial Pressure O2 268.1 mmHg (75.0-100.0) H Arterial Blood HCO3 33.1 mmol/L (22.0-26.0) H Arterial Blood Oxygen Saturation 98.7 % (95-100) Arterial Blood Base Excess 9.7 (-2-2) *H Christian Test Positive Current Medications Medications (Trade) Dose Ordered Sig/Kranthi Route PRN Reason Start Time Stop Time Status Last Admin Dose Admin Dextrose (Dextrose 50%) 25 ml Q30M PRN IV Hypoglycemia 12/29/18 16:15 01/26/19 22:44 Dextrose (Dextrose 50%) 50 ml Q30M PRN IV Hypoglycemia 12/29/18 16:15 01/26/19 22:44 Dextrose/Sodium Chloride 1,000 ml @ 50 mls/hr Q20H IV 12/29/18 16:30 01/28/19 16:29 Heparin Sodium (Porcine) (Heparin Sod 1000 units/ml 10ml) 500 unit ONCE IV 12/30/18 06:00 12/30/18 21:00 Morphine Sulfate (Morphine Sulfate) 2 mg Q2H PRN IVP For Pain 12/29/18 16:45 01/05/19 14:44 12/29/18 23:31 Ondansetron HCl (Zofran) 4 mg Q6H PRN IVP Nausea & Vomiting 12/29/18 16:45 01/26/19 22:44 Piperacillin Sod/ Tazobactam Sod 2.25 gm/Dextrose 55 ml @ 110 mls/hr Q8HR IV 12/29/18 22:00 01/03/19 05:59 12/29/18 22:02 Sodium Chloride 1,000 ml @ 500 mls/hr Q2H PRN IVLG sbp<90 during hd 12/30/18 06:00 01/29/19 05:59 Vancomycin HCl (Vanco rx to dose) 1 ea DAILY PRN MISC Per rx protocol 12/30/18 09:00 01/27/19 16:59 Vitamin B Complex/ Vit C/Folic Acid (Nephrovite) 1 tab DAILY ORAL 12/30/18 09:00 01/27/19 13:14 Ignacia Bills MD Dec 29, 2018 23:39
[2018-12-30] VITALS (24 sets, daily range): BP systolic 87–163; BP diastolic 25–92
[2018-12-30] MEDS: D5NS 1,000 ML IV SCH ×2 (00:20→14:32)
[2018-12-30] MEDS: Morphine Sulfate 2mg/ml Inj(IV/IM USE ONLY) IVP PRN ×2 (04:39→15:56)
[2018-12-30 05:21] LABS: HEMATOCRIT 20.7 % (37.0-47.0); MEAN CORPUSCULAR VOLUME 89 FL (80-99); PLATELET COUNT 199 K/UL (150-450); RED BLOOD COUNT 2.33 M/UL (4.20-5.40); RED CELL DISTRIBUTION WIDTH 16.1 % (11.6-14.8); WHITE BLOOD COUNT 11.6 K/UL (4.8-10.8)
[2018-12-30 05:30] LABS: HEMOGLOBIN 6.7 G/DL (12.0-16.0)
[2018-12-30 05:31] LABS: ALANINE AMINOTRANSFERASE 16 U/L (12-78); ALBUMIN 1.7 G/DL (3.4-5.0); ALBUMIN/GLOBULIN RATIO 0.4 (1.0-2.7); ALKALINE PHOSPHATASE 69 U/L (46-116); AMYLASE 72 U/L (25-115); ANION GAP 9 mmol/L (5-15); ASPARTATE AMINO TRANSFERASE 34 U/L (15-37); BILIRUBIN,TOTAL 0.6 MG/DL (0.2-1.0); BLOOD UREA NITROGEN 48 mg/dL (7-18); CALCIUM 7.2 MG/DL (8.5-10.1); CARBON DIOXIDE 36 MMOL/L (21-32); CHLORIDE 99 MMOL/L (98-107); CREATININE 4.7 MG/DL (0.55-1.30); POTASSIUM 3.9 MMOL/L (3.5-5.1); SODIUM 143 MMOL/L (136-145)
[2018-12-30 05:36] LABS: INR 1.1 (0.9-1.1)
[2018-12-30] MEDS ORDERED: Heparin Sod 1000 units/ml 10ml IV SCH (06:00)
[2018-12-30] MEDS: Piperacillin/Tazobactam 2.25 GM in D5W 55 ML IV SCH ×3 (06:08→21:17)
[2018-12-30] MEDS: Nephrovite tab (Rena-Vite) ORAL SCH (08:32)
--- NOTE | 2018-12-30 09:40 | Diagnostic Imaging Report ---
EXAM: XR Chest, 1 View CLINICAL HISTORY: INFECT TECHNIQUE: Frontal view of the chest. COMPARISON: Chest x-ray 12/29/18 1441 FINDINGS: Lungs: Left lung base atelectasis/airspace disease and/or small pleural effusion, stable from prior study. Pleural space: No pneumothorax. Heart: Unremarkable. No cardiomegaly. Mediastinum: Unremarkable. Bones/joints: Unremarkable. Tubes, lines and devices: Endotracheal tube and NG tube are stable. Right IJ central venous catheter stable. Cardiac pacemaker. Upper abdomen: Tiny amount of free air under the right hemidiaphragm is improved from prior study. Surgical clips upper abdomen. IMPRESSION: 1. Left lung base atelectasis/airspace disease and/or small pleural effusion, stable from prior study. 2. Tiny amount of free air under the right hemidiaphragm is improved from prior study.
--- NOTE | 2018-12-30 09:52 | Urology Progress Note ---
Assessment/Plan Assessment/Plan 1. Abdominal pain hx. 2. Status post recent right nephrectomy, presumably for renal cell carcinoma. 3. Chronic kidney disease. 4. Proteinuria. 5. Urinary frequency history. 6. Rule out neurogenic bladder. 7. Hematuria. 8. POD # 1 ,exp lap monitor clinically d/w Dr. Price hematoma noted in renal fossa and abdominal wall no pus, LULA drain placed abx as ordered HD per nephrology voiding trial anytime OK with me removal of LULA drain per Dr. Price f/u on blood and abdominal fluid cx's d/w Dr. Turcios d/w pt's daughter Subjective Allergies: Coded Allergies: SULFA (SULFONAMIDE ANTIBIOTICS) (Verified Allergy, Unknown, 11/21/14) COPIED FROM UNCODED SECTION Subjective all noted, s/p exp lap and colectomy 12/29, intubated, ICU, HD right flank LULA drain, minimal output Objective Last 24 Hour Vital Signs Date Time Temp Pulse Resp B/P (MAP) Pulse Ox O2 Delivery O2 Flow Rate FiO2 12/30/18 08:00 98.9 73 18 128/32 (64) 96 12/30/18 08:00 40 12/30/18 07:06 64 14 40 12/30/18 07:00 65 10 120/33 (62) 100 12/30/18 06:00 65 10 128/32 (64) 100 12/30/18 05:10 98.6 12/30/18 05:05 66 14 40 12/30/18 05:00 66 13 125/34 (64) 98 12/30/18 04:00 40 12/30/18 04:00 98.7 68 19 126/37 (66) 100 12/30/18 03:06 73 10 40 12/30/18 03:00 73 10 109/33 (58) 100 12/30/18 02:00 68 17 100/43 (62) 99 12/30/18 01:05 68 18 40 12/30/18 01:00 71 13 97/31 (53) 100 12/30/18 00:00 67 12/30/18 00:00 40 12/30/18 00:00 98.8 67 12 98/36 (56) 100 12/29/18 23:00 69 16 107/33 (57) 99 12/29/18 22:50 72 15 40 12/29/18 22:00 72 14 93/36 (55) 100 12/29/18 22:00 40 12/29/18 21:09 68 10 40 12/29/18 21:00 50 12/29/18 21:00 71 13 98/35 (56) 100 12/29/18 21:00 Mechanical Ventilator 12/29/18 20:00 60 12/29/18 20:00 72 12/29/18 20:00 98.9 72 16 106/38 (60) 100 12/29/18 19:43 71 13 50 12/29/18 19:00 62 13 156/60 (92) 100 12/29/18 18:00 64 13 145/56 (85) 100 12/29/18 17:16 66 12 60 12/29/18 17:00 99.5 68 13 144/54 (84) 100 12/29/18 16:00 65 13 140/50 (80) 100 12/29/18 16:00 Mechanical Ventilator 12/29/18 16:00 70 12/29/18 15:15 64 12 80 12/29/18 15:00 67 13 142/48 (79) 100 12/29/18 14:00 66 10 138/45 (76) 100 12/29/18 13:45 65 10 100 12/29/18 13:41 67 10 100 12/29/18 13:21 99.8 64 10 134/43 (73) 100 12/29/18 13:10 67 12 100 Intake and Output 12/29/18 12/30/18 19:00 07:00 Intake Total 283.708 ml 460 ml Output Total 410 ml 330 ml Balance -126.292 ml 130 ml IV Total 283.708 ml 460 ml Output Urine Total 85 ml 20 ml Gastric Drainage Total 300 ml Drainage Total 25 ml 110 ml Estimated Blood Loss 0 ml Other 200 ml Microbiology Date/Time Source Procedure Growth Status 12/28/18 20:38 Blood Blood Culture - Preliminary NO GROWTH AFTER 24 HOURS Resulted 12/27/18 22:00 Nasal Nares MRSA Culture - Final NO METHICILLIN RESISTANT STAPH AUREUS... Complete 12/28/18 09:30 Stool Clostridium difficile Toxin Assay - Final Complete 12/29/18 11:00 Abdominal Fluid Gram Stain - Final Resulted 12/29/18 11:00 Abdominal Fluid Aerobic Culture - Preliminary NO GROWTH AFTER 24 HOURS Resulted 12/29/18 11:00 Abdominal Fluid Anaerobic Culture - Preliminary NO GROWTH AFTER 24 HOURS Resulted Current Medications Medications (Trade) Dose Ordered Sig/Kranthi Route PRN Reason Start Time Stop Time Status Last Admin Dose Admin Dextrose (Dextrose 50%) 25 ml Q30M PRN IV Hypoglycemia 12/29/18 16:15 01/26/19 22:44 Dextrose (Dextrose 50%) 50 ml Q30M PRN IV Hypoglycemia 12/29/18 16:15 01/26/19 22:44 Dextrose/Sodium Chloride 1,000 ml @ 50 mls/hr Q20H IV 12/29/18 16:30 01/28/19 16:29 12/30/18 00:20 Heparin Sodium (Porcine) (Heparin Sod 1000 units/ml 10ml) 500 unit ONCE IV 12/30/18 06:00 12/30/18 21:00 Morphine Sulfate (Morphine Sulfate) 2 mg Q2H PRN IVP For Pain 12/29/18 16:45 01/05/19 14:44 12/30/18 04:39 Ondansetron HCl (Zofran) 4 mg Q6H PRN IVP Nausea & Vomiting 12/29/18 16:45 01/26/19 22:44 Piperacillin Sod/ Tazobactam Sod 2.25 gm/Dextrose 55 ml @ 110 mls/hr Q8HR IV 12/29/18 22:00 01/03/19 05:59 12/30/18 06:08 Sodium Chloride 1,000 ml @ 500 mls/hr Q2H PRN IVLG sbp<90 during hd 12/30/18 06:00 01/29/19 05:59 Vancomycin HCl (Vanco rx to dose) 1 ea DAILY PRN MISC Per rx protocol 12/30/18 09:00 01/27/19 16:59 Vitamin B Complex/ Vit C/Folic Acid (Nephrovite) 1 tab DAILY ORAL 12/30/18 09:00 01/27/19 13:14 12/30/18 08:32 Laboratory Tests 12/29/18 16:10: Arterial Blood pH 7.536H, Arterial Blood Partial Pressure CO2 40.0, Arterial Blood Partial Pressure O2 268.1H, Arterial Blood HCO3 33.1H, Arterial Blood Oxygen Saturation 98.7, Arterial Blood Base Excess 9.7*H, Christian Test Positive 12/30/18 05:00: White Blood Count 11.6H, Red Blood Count 2.33L, Hemoglobin 6.7*L, Hematocrit 20.7L, Mean Corpuscular Volume 89, Mean Corpuscular Hemoglobin 29.0, Mean Corpuscular Hemoglobin Concent 32.5, Red Cell Distribution Width 16.1H, Platelet Count 199, Mean Platelet Volume 7.6, Neutrophils (%) (Auto) , Lymphocytes (%) (Auto) , Monocytes (%) (Auto) , Eosinophils (%) (Auto) , Basophils (%) (Auto) , Differential Total Cells Counted 100, Neutrophils % ( Manual) 84H, Lymphocytes % (Manual) 15L, Monocytes % (Manual) 1, Eosinophils % ( Manual) 0, Basophils % (Manual) 0, Band Neutrophils 0, Platelet Estimate Adequate, Platelet Morphology Normal, Hypochromasia 1+, Anisocytosis 1+, Erythrocyte Sedimentation Rate 123H, Prothrombin Time 11.4, Prothromb Time International Ratio 1.1, Activated Partial Thromboplast Time 34H, Sodium Level 143, Potassium Level 3.9, Chloride Level 99, Carbon Dioxide Level 36H, Anion Gap 9, Blood Urea Nitrogen 48H, Creatinine 4.7H, Estimat Glomerular Filtration Rate , Glucose Level 137H, Calcium Level 7.2L, Total Bilirubin 0.6, Aspartate Amino Transf (AST/SGOT) 34, Alanine Aminotransferase (ALT/SGPT) 16, Alkaline Phosphatase 69, C-Reactive Protein, Quantitative 56.2H, Total Protein 5.9L, Albumin 1.7L, Globulin 4.2, Albumin/Globulin Ratio 0.4L, Amylase Level 72, Lipase 151 Height (Feet): 5 Height (Inches): 5.00 Weight (Pounds): 115 Objective exam stable robledo indwelling, grossly yellow urine LULA drain in right flank CT noted Kvng Epperson MD Dec 30, 2018 09:52
[2018-12-30 13:08] LABS: HEMATOCRIT 25.2 % (37.0-47.0); HEMOGLOBIN 8.1 G/DL (12.0-16.0); MEAN CORPUSCULAR VOLUME 91 FL (80-99); PLATELET COUNT 179 K/UL (150-450); RED BLOOD COUNT 2.77 M/UL (4.20-5.40); RED CELL DISTRIBUTION WIDTH 15.1 % (11.6-14.8); WHITE BLOOD COUNT 16.3 K/UL (4.8-10.8)
[2018-12-30] MEDS ORDERED: Tubing IV Secondary IV ONE (14:36)
[2018-12-30] MEDS ORDERED: NS 275ml ONE (14:36)
[2018-12-30] MEDS ORDERED: Heparin Sod 1000 units/ml 10ml IV ONE (16:00)
--- NOTE | 2018-12-30 16:16 | Nephrology Progress Note ---
Assessment/Plan Problem List: (1) ESRD (end stage renal disease) on dialysis (2) Ischemic colon Assessment: S/P colectomy (3) Anemia Assessment: better (4) DM (diabetes mellitus) (5) HTN (hypertension) Plan HD today start Epogen abxs follow labs Discussed with RN Subjective Interval Events/Complaints Internal medicine coverage for Dr Turcios Subjective extubated Objective Objective Last 24 Hour Vital Signs Date Time Temp Pulse Resp B/P (MAP) Pulse Ox O2 Delivery O2 Flow Rate FiO2 12/30/18 15:00 61 28 117/29 (58) 100 12/30/18 14:00 61 28 137/31 (66) 98 12/30/18 13:43 Venturi Mask 10.0 40 12/30/18 13:43 Venturi Mask 10.0 40 12/30/18 13:43 98 Venturi Mask 10.0 40 12/30/18 13:00 63 22 116/25 (55) 98 12/30/18 12:40 65 22 40 12/30/18 12:00 98.0 92 23 138/68 (91) 100 12/30/18 12:00 72 12/30/18 12:00 40 12/30/18 11:30 63 16 40 40 12/30/18 11:00 72 13 96/34 (54) 100 12/30/18 10:30 99 12/30/18 10:00 71 10 96/38 (57) 100 12/30/18 09:00 71 13 87/35 (52) 99 12/30/18 09:00 Mechanical Ventilator 12/30/18 08:40 71 16 40 12/30/18 08:00 98.9 73 18 128/32 (64) 96 12/30/18 08:00 40 12/30/18 08:00 65 12/30/18 07:06 64 14 40 12/30/18 07:00 65 10 120/33 (62) 100 12/30/18 06:00 65 10 128/32 (64) 100 12/30/18 05:10 98.6 12/30/18 05:05 66 14 40 12/30/18 05:00 66 13 125/34 (64) 98 12/30/18 04:00 40 12/30/18 04:00 98.7 68 19 126/37 (66) 100 12/30/18 03:06 73 10 40 12/30/18 03:00 73 10 109/33 (58) 100 12/30/18 02:00 68 17 100/43 (62) 99 12/30/18 01:05 68 18 40 12/30/18 01:00 71 13 97/31 (53) 100 12/30/18 00:00 67 12/30/18 00:00 40 12/30/18 00:00 98.8 67 12 98/36 (56) 100 12/29/18 23:00 69 16 107/33 (57) 99 12/29/18 22:50 72 15 40 12/29/18 22:00 72 14 93/36 (55) 100 12/29/18 22:00 40 12/29/18 21:09 68 10 40 12/29/18 21:00 50 12/29/18 21:00 71 13 98/35 (56) 100 12/29/18 21:00 Mechanical Ventilator 12/29/18 20:00 60 12/29/18 20:00 72 12/29/18 20:00 98.9 72 16 106/38 (60) 100 12/29/18 19:43 71 13 50 12/29/18 19:00 62 13 156/60 (92) 100 12/29/18 18:00 64 13 145/56 (85) 100 12/29/18 17:16 66 12 60 12/29/18 17:00 99.5 68 13 144/54 (84) 100 Intake and Output 12/29/18 12/30/18 19:00 07:00 Intake Total 283.708 ml 460 ml Output Total 410 ml 330 ml Balance -126.292 ml 130 ml IV Total 283.708 ml 460 ml Output Urine Total 85 ml 20 ml Gastric Drainage Total 300 ml Drainage Total 25 ml 110 ml Estimated Blood Loss 0 ml Other 200 ml Laboratory Tests 12/29/18 16:10: Arterial Blood pH 7.536H, Arterial Blood Partial Pressure CO2 40.0, Arterial Blood Partial Pressure O2 268.1H, Arterial Blood HCO3 33.1H, Arterial Blood Oxygen Saturation 98.7, Arterial Blood Base Excess 9.7*H, Christian Test Positive 12/30/18 05:00: White Blood Count 11.6H, Red Blood Count 2.33L, Hemoglobin 6.7*L, Hematocrit 20.7L, Mean Corpuscular Volume 89, Mean Corpuscular Hemoglobin 29.0, Mean Corpuscular Hemoglobin Concent 32.5, Red Cell Distribution Width 16.1H, Platelet Count 199, Mean Platelet Volume 7.6, Neutrophils (%) (Auto) , Lymphocytes (%) (Auto) , Monocytes (%) (Auto) , Eosinophils (%) (Auto) , Basophils (%) (Auto) , Differential Total Cells Counted 100, Neutrophils % ( Manual) 84H, Lymphocytes % (Manual) 15L, Monocytes % (Manual) 1, Eosinophils % ( Manual) 0, Basophils % (Manual) 0, Band Neutrophils 0, Platelet Estimate Adequate, Platelet Morphology Normal, Hypochromasia 1+, Anisocytosis 1+, Erythrocyte Sedimentation Rate 123H, Prothrombin Time 11.4, Prothromb Time International Ratio 1.1, Activated Partial Thromboplast Time 34H, Sodium Level 143, Potassium Level 3.9, Chloride Level 99, Carbon Dioxide Level 36H, Anion Gap 9, Blood Urea Nitrogen 48H, Creatinine 4.7H, Estimat Glomerular Filtration Rate , Glucose Level 137H, Calcium Level 7.2L, Total Bilirubin 0.6, Aspartate Amino Transf (AST/SGOT) 34, Alanine Aminotransferase (ALT/SGPT) 16, Alkaline Phosphatase 69, C-Reactive Protein, Quantitative 56.2H, Total Protein 5.9L, Albumin 1.7L, Globulin 4.2, Albumin/Globulin Ratio 0.4L, Amylase Level 72, Lipase 151 12/30/18 12:54: White Blood Count 16.3H, Red Blood Count 2.77L, Hemoglobin 8.1L, Hematocrit 25.2L, Mean Corpuscular Volume 91, Mean Corpuscular Hemoglobin 29.1, Mean Corpuscular Hemoglobin Concent 32.0, Red Cell Distribution Width 15.1H, Platelet Count 179, Mean Platelet Volume 7.2, Neutrophils (%) (Auto) , Lymphocytes (%) (Auto) , Monocytes (%) (Auto) , Eosinophils (%) (Auto) , Basophils (%) (Auto) , Differential Total Cells Counted 100, Neutrophils % ( Manual) 88H, Lymphocytes % (Manual) 4L, Monocytes % (Manual) 1, Eosinophils % ( Manual) 3, Basophils % (Manual) 0, Band Neutrophils 4, Platelet Estimate Adequate, Platelet Morphology Normal, Hypochromasia 1+, Anisocytosis 1+ 12/30/18 13:20: Arterial Blood pH 7.431, Arterial Blood Partial Pressure CO2 44.2, Arterial Blood Partial Pressure O2 69.7L, Arterial Blood HCO3 28.7H, Arterial Blood Oxygen Saturation 92.8L, Arterial Blood Base Excess 4.0H, Christian Test Positive 12/30/18 16:00: White Blood Count [Pending], Red Blood Count [Pending], Hemoglobin [Pending], Hematocrit [Pending], Mean Corpuscular Volume [Pending], Mean Corpuscular Hemoglobin [Pending], Mean Corpuscular Hemoglobin Concent [Pending], Red Cell Distribution Width [Pending], Platelet Count [Pending], Mean Platelet Volume [ Pending], Neutrophils (%) (Auto) [Pending], Lymphocytes (%) (Auto) [Pending], Monocytes (%) (Auto) [Pending], Eosinophils (%) (Auto) [Pending], Basophils (%) (Auto) [Pending], Sodium Level [Pending], Potassium Level [Pending], Chloride Level [Pending], Carbon Dioxide Level [Pending], Blood Urea Nitrogen [Pending], Creatinine [Pending], Estimat Glomerular Filtration Rate [Pending], Glucose Level [Pending], Calcium Level [Pending], Total Bilirubin [Pending], Aspartate Amino Transf (AST/SGOT) [Pending], Alanine Aminotransferase (ALT/SGPT) [Pending] , Alkaline Phosphatase [Pending], Total Protein [Pending], Albumin [Pending], Globulin [Pending] Height (Feet): 5 Height (Inches): 5.00 Weight (Pounds): 115 Cardiovascular: normal rate Respiratory/Chest: lungs clear Abdomen: soft Modesto Romero MD Dec 30, 2018 16:16
[2018-12-30 16:21] LABS: HEMATOCRIT 23.6 % (37.0-47.0); HEMOGLOBIN 8.1 G/DL (12.0-16.0); MEAN CORPUSCULAR VOLUME 89 FL (80-99); PLATELET COUNT 169 K/UL (150-450); RED BLOOD COUNT 2.67 M/UL (4.20-5.40); RED CELL DISTRIBUTION WIDTH 15.1 % (11.6-14.8); WHITE BLOOD COUNT 15.2 K/UL (4.8-10.8)
[2018-12-30 16:24] LABS: NEUTROPHILS % (AUTO) 86.1 % (45.0-75.0)
[2018-12-30 16:25] LABS: BASOPHILS % (AUTO) 0.5 % (0.0-2.0); EOSINOPHILS % (AUTO) 2.8 % (0.0-3.0); LYMPHOCYTES % (AUTO) 7.7 % (20.0-45.0)
[2018-12-30 16:32] LABS: ALANINE AMINOTRANSFERASE 19 U/L (12-78); ALBUMIN 1.7 G/DL (3.4-5.0); ALBUMIN/GLOBULIN RATIO 0.4 (1.0-2.7); ALKALINE PHOSPHATASE 69 U/L (46-116); ANION GAP 8 mmol/L (5-15); ASPARTATE AMINO TRANSFERASE 33 U/L (15-37); BILIRUBIN,TOTAL 0.7 MG/DL (0.2-1.0); BLOOD UREA NITROGEN 32 mg/dL (7-18); CALCIUM 7.5 MG/DL (8.5-10.1); CARBON DIOXIDE 31 MMOL/L (21-32); CHLORIDE 102 MMOL/L (98-107); CREATININE 3.7 MG/DL (0.55-1.30); POTASSIUM 3.7 MMOL/L (3.5-5.1); SODIUM 141 MMOL/L (136-145)
--- NOTE | 2018-12-30 17:29 | Infectious Diseases Prog Note ---
Assessment/Plan Assessment/Plan ASSESSMENT AND PLAN: 1. sepsis, ischemic colitis, hematoma/fluid collection, ? aspiration pna/hcap vs atx, leukocytosis, fevers - vancomycin, zosyn for now - check cultures, sc, labs and chest x-ray - icu and supportive care, extubated today, no pressors - continue tx per primary, surgery and consultants 2. The patient has end-stage renal disease, on hemodialysis. 3. The patient is status post right nephrectomy for renal ca per hx 4. Anemia. 5. Renal carcinoma requiring right nephrectomy. 6. Urology followup. 7. Hypertension. 8. Hyperlipidemia. 9. Congestive heart failure. 10. Diastolic dysfunction. 11. End-stage renal disease, on hemodialysis and dialysis line. 12. Sick sinus syndrome. 13. Pacemaker. 14. WILLIAMS. 15. Diabetes. 16. Hypertension. 17. Diabetes and hypertension, treatment per primary . 18. Dyslipidemia. 19. Continue treatment per primary consultants. 20. Notes and records were noted. 21. Orders were entered. 22. Family history is noncontributory. 23. Social history is negative. 24. MAR was noted. 25. Case was discussed with RN. 26. Allergies to sulfa drugs. Subjective Constitutional: Reports: fatigue, other - extubated, no pressors; Denies: fever HEENT: Reports: congestion Respiratory: Reports: shortness of breath Cardiovascular: Reports: other - no pressors ; Denies: chest pain Gastrointestinal/Abdominal: Reports: other - abdominal pain controlled ; Denies : nausea, vomiting, diarrhea Genitourinary: Reports: other - + robledo Neurologic: Reports: weakness, other - general weakness but responsive Psychiatric: Reports: other - na Skin: Denies: rash Hematologic: Denies: bleeding Musculoskeletal: Denies: pain Allergies: Coded Allergies: SULFA (SULFONAMIDE ANTIBIOTICS) (Verified Allergy, Unknown, 11/21/14) COPIED FROM UNCODED SECTION Objective Vital Signs Last 24 Hour Vital Signs Date Time Temp Pulse Resp B/P (MAP) Pulse Ox O2 Delivery O2 Flow Rate FiO2 12/30/18 17:00 61 30 133/41 (71) 97 12/30/18 16:00 40 12/30/18 16:00 65 12/30/18 16:00 98.2 61 16 149/32 (71) 98 12/30/18 15:00 61 28 117/29 (58) 100 12/30/18 14:00 61 28 137/31 (66) 98 12/30/18 13:43 Venturi Mask 10.0 40 12/30/18 13:43 Venturi Mask 10.0 40 12/30/18 13:43 98 Venturi Mask 10.0 40 12/30/18 13:00 63 22 116/25 (55) 98 12/30/18 12:40 65 22 40 12/30/18 12:00 98.0 92 23 138/68 (91) 100 12/30/18 12:00 72 12/30/18 12:00 40 12/30/18 11:30 63 16 40 40 12/30/18 11:00 72 13 96/34 (54) 100 12/30/18 10:30 99 12/30/18 10:00 71 10 96/38 (57) 100 12/30/18 09:00 71 13 87/35 (52) 99 12/30/18 09:00 Mechanical Ventilator 12/30/18 08:40 71 16 40 12/30/18 08:00 98.9 73 18 128/32 (64) 96 12/30/18 08:00 40 12/30/18 08:00 65 12/30/18 07:06 64 14 40 12/30/18 07:00 65 10 120/33 (62) 100 12/30/18 06:00 65 10 128/32 (64) 100 12/30/18 05:10 98.6 12/30/18 05:05 66 14 40 12/30/18 05:00 66 13 125/34 (64) 98 12/30/18 04:00 40 12/30/18 04:00 98.7 68 19 126/37 (66) 100 12/30/18 03:06 73 10 40 12/30/18 03:00 73 10 109/33 (58) 100 12/30/18 02:00 68 17 100/43 (62) 99 12/30/18 01:05 68 18 40 12/30/18 01:00 71 13 97/31 (53) 100 12/30/18 00:00 67 12/30/18 00:00 40 12/30/18 00:00 98.8 67 12 98/36 (56) 100 12/29/18 23:00 69 16 107/33 (57) 99 12/29/18 22:50 72 15 40 12/29/18 22:00 72 14 93/36 (55) 100 12/29/18 22:00 40 12/29/18 21:09 68 10 40 12/29/18 21:00 50 12/29/18 21:00 71 13 98/35 (56) 100 12/29/18 21:00 Mechanical Ventilator 12/29/18 20:00 60 12/29/18 20:00 72 12/29/18 20:00 98.9 72 16 106/38 (60) 100 12/29/18 19:43 71 13 50 12/29/18 19:00 62 13 156/60 (92) 100 12/29/18 18:00 64 13 145/56 (85) 100 Height (Feet): 5 Height (Inches): 5.00 Weight (Pounds): 115 General Appearance: no acute distress, other - extubated HEENT: normocephalic, atraumatic, anicteric, mucous membranes moist Respiratory/Chest: no accessory muscle use, crackles/rales, rhonchi - bilaterally Cardiovascular: normal rate, regular rhythm, no gallop/murmur, no JVD Abdomen: soft, non tender, no organomegaly, non distended, hypoactive bowel sounds Genitourinary: other - + robledo - urine clear Extremities: no cyanosis Skin: no rash 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 Left lung base atelectasis/airspace disease and/or small pleural effusion, stable from prior study. 2. Tiny amount of free air under the right hemidiaphragm is improved from prior study. Microbiology Date/Time Source Procedure Growth Status 12/28/18 20:38 Blood Blood Culture - Preliminary NO GROWTH AFTER 24 HOURS Resulted 12/28/18 20:33 Blood Blood Culture - Preliminary NO GROWTH AFTER 24 HOURS Resulted 12/27/18 22:00 Nasal Nares MRSA Culture - Final NO METHICILLIN RESISTANT STAPH AUREUS... Complete 12/28/18 09:30 Stool Clostridium difficile Toxin Assay - Final Complete 12/29/18 11:00 Abdominal Fluid Gram Stain - Final Resulted 12/29/18 11:00 Abdominal Fluid Aerobic Culture - Preliminary NO GROWTH AFTER 24 HOURS Resulted 3/22/19 11:00 Abdominal Fluid Anaerobic Culture - Preliminary NO GROWTH AFTER 24 HOURS Resulted 12/27/18 22:00 Rectum - Final NO CARBAPENEM-RESISTANT ENTEROBACTERI... Complete 12/27/18 22:00 Rectum VRE Culture - Final NO VANCOMYCIN RESISTANT ENTEROCOCCUS ... Complete Laboratory Tests Test 12/30/18 05:00 12/30/18 12:54 12/30/18 13:20 12/30/18 16:00 White Blood Count 11.6 K/UL (4.8-10.8) H 16.3 K/UL (4.8-10.8) H 15.2 K/UL (4.8-10.8) H Red Blood Count 2.33 M/UL (4.20-5.40) L 2.77 M/UL (4.20-5.40) L 2.67 M/UL (4.20-5.40) L Hemoglobin 6.7 G/DL (12.0-16.0) *L 8.1 G/DL (12.0-16.0) L 8.1 G/DL (12.0-16.0) L Hematocrit 20.7 % (37.0-47.0) L 25.2 % (37.0-47.0) L 23.6 % (37.0-47.0) L Mean Corpuscular Volume 89 FL (80-99) 91 FL (80-99) 89 FL (80-99) Mean Corpuscular Hemoglobin 29.0 PG (27.0-31.0) 29.1 PG (27.0-31.0) 30.3 PG (27.0-31.0) Mean Corpuscular Hemoglobin Concent 32.5 G/DL (32.0-36.0) 32.0 G/DL (32.0-36.0) 34.2 G/DL (32.0-36.0) Red Cell Distribution Width 16.1 % (11.6-14.8) H 15.1 % (11.6-14.8) H 15.1 % (11.6-14.8) H Platelet Count 199 K/UL (150-450) 179 K/UL (150-450) 169 K/UL (150-450) Mean Platelet Volume 7.6 FL (6.5-10.1) 7.2 FL (6.5-10.1) 6.7 FL (6.5-10.1) Neutrophils (%) (Auto) % (45.0-75.0) % (45.0-75.0) 86.1 % (45.0-75.0) H Lymphocytes (%) (Auto) % (20.0-45.0) % (20.0-45.0) 7.7 % (20.0-45.0) L Monocytes (%) (Auto) % (1.0-10.0) % (1.0-10.0) 3.0 % (1.0-10.0) Eosinophils (%) (Auto) % (0.0-3.0) % (0.0-3.0) 2.8 % (0.0-3.0) Basophils (%) (Auto) % (0.0-2.0) % (0.0-2.0) 0.5 % (0.0-2.0) Differential Total Cells Counted 100 100 Neutrophils % (Manual) 84 % (45-75) H 88 % (45-75) H Lymphocytes % (Manual) 15 % (20-45) L 4 % (20-45) L Monocytes % (Manual) 1 % (1-10) 1 % (1-10) Eosinophils % (Manual) 0 % (0-3) 3 % (0-3) Basophils % (Manual) 0 % (0-2) 0 % (0-2) Band Neutrophils 0 % (0-8) 4 % (0-8) Platelet Estimate Adequate Adequate Platelet Morphology Normal Normal Hypochromasia 1+ 1+ Anisocytosis 1+ 1+ Erythrocyte Sedimentation Rate 123 MM/HR (0-30) H Prothrombin Time 11.4 SEC (9.30-11.50) Prothromb Time International Ratio 1.1 (0.9-1.1) Activated Partial Thromboplast Time 34 SEC (23-33) H Sodium Level 143 MMOL/L (136-145) 141 MMOL/L (136-145) Potassium Level 3.9 MMOL/L (3.5-5.1) 3.7 MMOL/L (3.5-5.1) Chloride Level 99 MMOL/L (98-107) 102 MMOL/L (98-107) Carbon Dioxide Level 36 MMOL/L (21-32) H 31 MMOL/L (21-32) Anion Gap 9 mmol/L (5-15) 8 mmol/L (5-15) Blood Urea Nitrogen 48 mg/dL (7-18) H 32 mg/dL (7-18) H Creatinine 4.7 MG/DL (0.55-1.30) H 3.7 MG/DL (0.55-1.30) H Estimat Glomerular Filtration Rate mL/min (>60) mL/min (>60) Glucose Level 137 MG/DL (74-106) H 186 MG/DL (74-106) H Calcium Level 7.2 MG/DL (8.5-10.1) L 7.5 MG/DL (8.5-10.1) L Total Bilirubin 0.6 MG/DL (0.2-1.0) 0.7 MG/DL (0.2-1.0) Aspartate Amino Transf (AST/SGOT) 34 U/L (15-37) 33 U/L (15-37) Alanine Aminotransferase (ALT/SGPT) 16 U/L (12-78) 19 U/L (12-78) Alkaline Phosphatase 69 U/L (46-116) 69 U/L (46-116) C-Reactive Protein, Quantitative 56.2 mg/dL (0.00-0.90) H Total Protein 5.9 G/DL (6.4-8.2) L 6.1 G/DL (6.4-8.2) L Albumin 1.7 G/DL (3.4-5.0) L 1.7 G/DL (3.4-5.0) L Globulin 4.2 g/dL 4.4 g/dL Albumin/Globulin Ratio 0.4 (1.0-2.7) L 0.4 (1.0-2.7) L Amylase Level 72 U/L (25-115) Lipase 151 U/L (73-393) Arterial Blood pH 7.431 (7.350-7.450) Arterial Blood Partial Pressure CO2 44.2 mmHg (35.0-45.0) Arterial Blood Partial Pressure O2 69.7 mmHg (75.0-100.0) L Arterial Blood HCO3 28.7 mmol/L (22.0-26.0) H Arterial Blood Oxygen Saturation 92.8 % (95-100) L Arterial Blood Base Excess 4.0 (-2-2) H Christian Test Positive Current Medications Medications (Trade) Dose Ordered Sig/Kranthi Route PRN Reason Start Time Stop Time Status Last Admin Dose Admin Dextrose (Dextrose 50%) 25 ml Q30M PRN IV Hypoglycemia 12/29/18 16:15 01/26/19 22:44 Dextrose (Dextrose 50%) 50 ml Q30M PRN IV Hypoglycemia 12/29/18 16:15 01/26/19 22:44 Dextrose/Sodium Chloride 1,000 ml @ 50 mls/hr Q20H IV 12/29/18 16:30 01/28/19 16:29 12/30/18 14:32 Epoetin Skinny (Epoetin Skinny(ESRD on dialysis)) 2,000 unit TUE-TUE-TUE SUBQ 01/01/19 21:00 01/31/19 20:59 Epoetin Skinny (Epoetin Skinny(ESRD on dialysis)) 3,000 unit TUE- SUBQ 01/01/19 21:00 01/31/19 20:59 Heparin Sodium (Porcine) (Heparin Sod 1000 units/ml 10ml) 500 unit ONCE IV 12/30/18 06:00 12/30/18 21:00 Morphine Sulfate (Morphine Sulfate) 2 mg Q2H PRN IVP For Pain 12/29/18 16:45 01/05/19 14:44 12/30/18 15:56 Ondansetron HCl (Zofran) 4 mg Q6H PRN IVP Nausea & Vomiting 12/29/18 16:45 01/26/19 22:44 Piperacillin Sod/ Tazobactam Sod 2.25 gm/Dextrose 55 ml @ 110 mls/hr Q8HR IV 12/29/18 22:00 01/03/19 05:59 12/30/18 14:00 Sodium Chloride 1,000 ml @ 500 mls/hr Q2H PRN IVLG sbp<90 during hd 12/30/18 06:00 01/29/19 05:59 Vancomycin HCl (Vanco rx to dose) 1 ea DAILY PRN MISC Per rx protocol 12/30/18 09:00 01/27/19 16:59 Vitamin B Complex/ Vit C/Folic Acid (Nephrovite) 1 tab DAILY ORAL 12/30/18 09:00 01/27/19 13:14 12/30/18 08:32 Ignacia Bills MD Dec 30, 2018 17:29
--- NOTE | 2018-12-30 17:50 | General Progress Note ---
Assessment/Plan Assessment/Plan Assessment - ischemic colitis - s/p partial colectomy - s/p nephrectomy - ESRD/HD - HTN Recommendations - post op care - wean / extubate - follow labs - feeds when OK with surgery - f/u path Subjective Allergies: Coded Allergies: SULFA (SULFONAMIDE ANTIBIOTICS) (Verified Allergy, Unknown, 11/21/14) COPIED FROM UNCODED SECTION Subjective Above noted seen in ICU POD #2, s/p partial colectomy Objective Last 24 Hour Vital Signs Date Time Temp Pulse Resp B/P (MAP) Pulse Ox O2 Delivery O2 Flow Rate FiO2 12/30/18 17:00 61 30 133/41 (71) 97 12/30/18 16:00 40 12/30/18 16:00 65 12/30/18 16:00 98.2 61 16 149/32 (71) 98 12/30/18 15:00 61 28 117/29 (58) 100 12/30/18 14:00 61 28 137/31 (66) 98 12/30/18 13:43 Venturi Mask 10.0 40 12/30/18 13:43 Venturi Mask 10.0 40 12/30/18 13:43 98 Venturi Mask 10.0 40 12/30/18 13:00 63 22 116/25 (55) 98 12/30/18 12:40 65 22 40 12/30/18 12:00 98.0 92 23 138/68 (91) 100 12/30/18 12:00 72 12/30/18 12:00 40 12/30/18 11:30 63 16 40 40 12/30/18 11:00 72 13 96/34 (54) 100 12/30/18 10:30 99 12/30/18 10:00 71 10 96/38 (57) 100 12/30/18 09:00 71 13 87/35 (52) 99 12/30/18 09:00 Mechanical Ventilator 12/30/18 08:40 71 16 40 12/30/18 08:00 98.9 73 18 128/32 (64) 96 12/30/18 08:00 40 12/30/18 08:00 65 12/30/18 07:06 64 14 40 12/30/18 07:00 65 10 120/33 (62) 100 12/30/18 06:00 65 10 128/32 (64) 100 12/30/18 05:10 98.6 12/30/18 05:05 66 14 40 12/30/18 05:00 66 13 125/34 (64) 98 12/30/18 04:00 40 12/30/18 04:00 98.7 68 19 126/37 (66) 100 12/30/18 03:06 73 10 40 12/30/18 03:00 73 10 109/33 (58) 100 12/30/18 02:00 68 17 100/43 (62) 99 12/30/18 01:05 68 18 40 12/30/18 01:00 71 13 97/31 (53) 100 12/30/18 00:00 67 12/30/18 00:00 40 12/30/18 00:00 98.8 67 12 98/36 (56) 100 12/29/18 23:00 69 16 107/33 (57) 99 12/29/18 22:50 72 15 40 12/29/18 22:00 72 14 93/36 (55) 100 12/29/18 22:00 40 12/29/18 21:09 68 10 40 12/29/18 21:00 50 12/29/18 21:00 71 13 98/35 (56) 100 12/29/18 21:00 Mechanical Ventilator 12/29/18 20:00 60 12/29/18 20:00 72 12/29/18 20:00 98.9 72 16 106/38 (60) 100 12/29/18 19:43 71 13 50 12/29/18 19:00 62 13 156/60 (92) 100 12/29/18 18:00 64 13 145/56 (85) 100 Intake and Output 12/29/18 12/30/18 19:00 07:00 Intake Total 283.708 ml 460 ml Output Total 410 ml 330 ml Balance -126.292 ml 130 ml IV Total 283.708 ml 460 ml Output Urine Total 85 ml 20 ml Gastric Drainage Total 300 ml Drainage Total 25 ml 110 ml Estimated Blood Loss 0 ml Other 200 ml Laboratory Tests 12/30/18 05:00: White Blood Count 11.6H, Red Blood Count 2.33L, Hemoglobin 6.7*L, Hematocrit 20.7L, Mean Corpuscular Volume 89, Mean Corpuscular Hemoglobin 29.0, Mean Corpuscular Hemoglobin Concent 32.5, Red Cell Distribution Width 16.1H, Platelet Count 199, Mean Platelet Volume 7.6, Neutrophils (%) (Auto) , Lymphocytes (%) (Auto) , Monocytes (%) (Auto) , Eosinophils (%) (Auto) , Basophils (%) (Auto) , Differential Total Cells Counted 100, Neutrophils % ( Manual) 84H, Lymphocytes % (Manual) 15L, Monocytes % (Manual) 1, Eosinophils % ( Manual) 0, Basophils % (Manual) 0, Band Neutrophils 0, Platelet Estimate Adequate, Platelet Morphology Normal, Hypochromasia 1+, Anisocytosis 1+, Erythrocyte Sedimentation Rate 123H, Prothrombin Time 11.4, Prothromb Time International Ratio 1.1, Activated Partial Thromboplast Time 34H, Sodium Level 143, Potassium Level 3.9, Chloride Level 99, Carbon Dioxide Level 36H, Anion Gap 9, Blood Urea Nitrogen 48H, Creatinine 4.7H, Estimat Glomerular Filtration Rate , Glucose Level 137H, Calcium Level 7.2L, Total Bilirubin 0.6, Aspartate Amino Transf (AST/SGOT) 34, Alanine Aminotransferase (ALT/SGPT) 16, Alkaline Phosphatase 69, C-Reactive Protein, Quantitative 56.2H, Total Protein 5.9L, Albumin 1.7L, Globulin 4.2, Albumin/Globulin Ratio 0.4L, Amylase Level 72, Lipase 151 12/30/18 12:54: White Blood Count 16.3H, Red Blood Count 2.77L, Hemoglobin 8.1L, Hematocrit 25.2L, Mean Corpuscular Volume 91, Mean Corpuscular Hemoglobin 29.1, Mean Corpuscular Hemoglobin Concent 32.0, Red Cell Distribution Width 15.1H, Platelet Count 179, Mean Platelet Volume 7.2, Neutrophils (%) (Auto) , Lymphocytes (%) (Auto) , Monocytes (%) (Auto) , Eosinophils (%) (Auto) , Basophils (%) (Auto) , Differential Total Cells Counted 100, Neutrophils % ( Manual) 88H, Lymphocytes % (Manual) 4L, Monocytes % (Manual) 1, Eosinophils % ( Manual) 3, Basophils % (Manual) 0, Band Neutrophils 4, Platelet Estimate Adequate, Platelet Morphology Normal, Hypochromasia 1+, Anisocytosis 1+ 12/30/18 13:20: Arterial Blood pH 7.431, Arterial Blood Partial Pressure CO2 44.2, Arterial Blood Partial Pressure O2 69.7L, Arterial Blood HCO3 28.7H, Arterial Blood Oxygen Saturation 92.8L, Arterial Blood Base Excess 4.0H, Christian Test Positive 12/30/18 16:00: White Blood Count 15.2H, Red Blood Count 2.67L, Hemoglobin 8.1L, Hematocrit 23.6L, Mean Corpuscular Volume 89, Mean Corpuscular Hemoglobin 30.3, Mean Corpuscular Hemoglobin Concent 34.2, Red Cell Distribution Width 15.1H, Platelet Count 169, Mean Platelet Volume 6.7, Neutrophils (%) (Auto) 86.1H, Lymphocytes (%) (Auto) 7.7L, Monocytes (%) (Auto) 3.0, Eosinophils (%) (Auto) 2.8, Basophils (%) (Auto) 0.5, Sodium Level 141, Potassium Level 3.7, Chloride Level 102, Carbon Dioxide Level 31, Anion Gap 8, Blood Urea Nitrogen 32H, Creatinine 3.7H, Estimat Glomerular Filtration Rate , Glucose Level 186H, Calcium Level 7.5L, Total Bilirubin 0.7, Aspartate Amino Transf (AST/SGOT) 33, Alanine Aminotransferase (ALT/SGPT) 19, Alkaline Phosphatase 69, Total Protein 6.1L, Albumin 1.7L, Globulin 4.4, Albumin/Globulin Ratio 0.4L Height (Feet): 5 Height (Inches): 5.00 Weight (Pounds): 115 Objective Elderly woman NCAT (+) ETT and NGT neck supple CTA RRR abd large dressing and (R) LULA no edema Kristan Rabago MD Dec 30, 2018 17:50
--- NOTE | 2018-12-30 19:10 | General Progress Note ---
Progress Note Progress Note Surgery: extubated. awake, alert, responsive. family at bedside. no nv/f/c. comfortable. anemia given PRBC responded well. abd soft, incisional tender, drain with some serosang output but not much overall doing well post op. labs noted cont npo iv fluids iv abx drain care will monitor thank you Tyrese Price Dec 30, 2018 19:10
--- NOTE | 2018-12-30 21:00 | Pulmonolgy Critical Care Note ---
Critical Care - Asmt/Plan Assessment/Plan: Pulmonary CCM Consultation HPI This patient is sp R Colectomy, currently remains intubated, recently underwent a nephrectomy for large right kidney cancer. She subsequently has started dialysis for the past 2 weeks. She was at dialysis today when she felt pain in her abdomen. She also felt gassy. She denies nausea or vomiting. She denies fever or chills. She denies chest pain or shortness of breath. She states her symptoms have much improved by she still does have some pain. She has no other complaints. Allergies: Coded Allergies: SULFA (SULFONAMIDE ANTIBIOTICS) (Verified Allergy, Unknown, 11/21/14) COPIED FROM UNCODED SECTION Patient History Past Medical History: R Kidney Cancer, DM, HTN, HLP Past Surgical History: R Colectomy, R Nephrectomy 1 week ago. Review of Systems All Other Systems: negative except mentioned in HPI Physical Exam Vital Signs Noted General Appearance: no apparent distress, alert, intubated, non-toxic Head: normocephalic, atraumatic Eyes: bilateral eye normal inspection, bilateral eye PERRL ENT: hearing grossly normal, normal pharynx, no angioedema, normal voice Neck: full range of motion, supple/symm/no masses Respiratory: chest non-tender, lungs clear, normal breath sounds, no respiratory distress, no retraction, no accessory muscle use, speaking full sentences Cardiovascular #1: regular rate, rhythm, no edema Gastrointestinal: normal bowel sounds, soft, non-distended, no guarding, no rebound, tenderness - Mild ttp in epigastrium, post operative changes Rectal: deferred Musculoskeletal: back normal, gait/station normal, normal range of motion, non- tender Neurologic: alert, o, responsive, motor strength/tone normal, sensory intact, speech normal Psychiatric: judgement/insight normal, memory normal, mood/affect normal, no suicidal/homicidal ideation Skin: normal color, no rash, warm/dry, well hydrated Impression: Primary Impression: Ischemic Colitis, s/p Colectomy Retroperitoneal Collection Hypertension DM HL Plan Wean as tolerated Extubate per protocol AB's PPX [employer] meds IVF Laboratory Tests and XR noted Test 12/27/18 17:32 12/27/18 17:35 Urine Color Yellow Urine Appearance Clear Urine pH 9 (4.5-8.0) Urine Specific Dobson 1.015 (1.005-1.035) Urine Protein 3+ (NEGATIVE) H Urine Glucose (UA) Negative (NEGATIVE) Urine Ketones Negative (NEGATIVE) Urine Blood 2+ (NEGATIVE) H Urine Nitrite Negative (NEGATIVE) Urine Bilirubin Negative (NEGATIVE) Urine Urobilinogen Normal MG/DL (0.0-1.0) Urine Leukocyte Esterase Negative (NEGATIVE) Urine RBC 0-2 /HPF (0 - 2) Urine WBC 0-2 /HPF (0 - 2) Urine Squamous Epithelial Cells Occasional /LPF Urine Bacteria None /HPF (NONE) White Blood Count 13.9 K/UL (4.8-10.8) H Red Blood Count 3.30 M/UL (4.20-5.40) L Hemoglobin 9.6 G/DL (12.0-16.0) L Hematocrit 29.3 % (37.0-47.0) L Mean Corpuscular Volume 89 FL (80-99) Mean Corpuscular Hemoglobin 29.1 PG (27.0-31.0) Mean Corpuscular Hemoglobin Concent 32.8 G/DL (32.0-36.0) Red Cell Distribution Width 15.6 % (11.6-14.8) H Platelet Count 271 K/UL (150-450) Mean Platelet Volume 6.5 FL (6.5-10.1) Neutrophils (%) (Auto) 80.9 % (45.0-75.0) H Lymphocytes (%) (Auto) 9.4 % (20.0-45.0) L Monocytes (%) (Auto) 5.5 % (1.0-10.0) Eosinophils (%) (Auto) 3.7 % (0.0-3.0) H Basophils (%) (Auto) 0.5 % (0.0-2.0) Sodium Level 139 MMOL/L (136-145) Potassium Level 3.9 MMOL/L (3.5-5.1) Chloride Level 101 MMOL/L (98-107) Carbon Dioxide Level 31 MMOL/L (21-32) Anion Gap 7 mmol/L (5-15) Blood Urea Nitrogen 29 mg/dL (7-18) H Creatinine 2.9 MG/DL (0.55-1.30) H Estimate Glomerular Filtration Rate mL/min (>60) Glucose Level 83 MG/DL (74-106) Calcium Level 8.6 MG/DL (8.5-10.1) Total Bilirubin 0.5 MG/DL (0.2-1.0) Aspartate Amino Transferase (AST) 39 U/L (15-37) H Alanine Aminotransferase (ALT) 22 U/L (12-78) Alkaline Phosphatase 89 U/L (46-116) Total Protein 7.8 G/DL (6.4-8.2) Albumin 2.8 G/DL (3.4-5.0) L Globulin 5.0 g/dL Albumin/Globulin Ratio 0.6 (1.0-2.7) L Lipase 529 U/L (73-393) H CT abd/pelvis Impression Multiple postoperative findings and some other findings that could be postoperative infection. Critical Care - Objective Last 24 Hour Vital Signs Date Time Temp Pulse Resp B/P (MAP) Pulse Ox O2 Delivery O2 Flow Rate FiO2 12/30/18 19:00 62 31 154/33 (73) 96 12/30/18 18:00 60 21 155/92 (113) 100 12/30/18 17:00 61 30 133/41 (71) 97 12/30/18 16:00 40 12/30/18 16:00 65 12/30/18 16:00 98.2 61 16 149/32 (71) 98 12/30/18 15:00 61 28 117/29 (58) 100 12/30/18 14:00 61 28 137/31 (66) 98 12/30/18 13:43 Venturi Mask 10.0 40 12/30/18 13:43 Venturi Mask 10.0 40 12/30/18 13:43 98 Venturi Mask 10.0 40 12/30/18 13:00 63 22 116/25 (55) 98 12/30/18 12:40 65 22 40 12/30/18 12:00 98.0 92 23 138/68 (91) 100 12/30/18 12:00 72 12/30/18 12:00 40 12/30/18 11:30 63 16 40 40 12/30/18 11:00 72 13 96/34 (54) 100 12/30/18 10:30 99 12/30/18 10:00 71 10 96/38 (57) 100 12/30/18 09:00 71 13 87/35 (52) 99 12/30/18 09:00 Mechanical Ventilator 12/30/18 08:40 71 16 40 12/30/18 08:00 98.9 73 18 128/32 (64) 96 12/30/18 08:00 40 12/30/18 08:00 65 12/30/18 07:06 64 14 40 12/30/18 07:00 65 10 120/33 (62) 100 12/30/18 06:00 65 10 128/32 (64) 100 12/30/18 05:10 98.6 12/30/18 05:05 66 14 40 12/30/18 05:00 66 13 125/34 (64) 98 12/30/18 04:00 40 12/30/18 04:00 98.7 68 19 126/37 (66) 100 12/30/18 03:06 73 10 40 12/30/18 03:00 73 10 109/33 (58) 100 12/30/18 02:00 68 17 100/43 (62) 99 12/30/18 01:05 68 18 40 12/30/18 01:00 71 13 97/31 (53) 100 12/30/18 00:00 67 12/30/18 00:00 40 12/30/18 00:00 98.8 67 12 98/36 (56) 100 12/29/18 23:00 69 16 107/33 (57) 99 12/29/18 22:50 72 15 40 12/29/18 22:00 72 14 93/36 (55) 100 12/29/18 22:00 40 12/29/18 21:09 68 10 40 12/29/18 21:00 50 12/29/18 21:00 71 13 98/35 (56) 100 12/29/18 21:00 Mechanical Ventilator Micro: Microbiology Date/Time Source Procedure Growth Status 12/28/18 20:38 Blood Blood Culture - Preliminary NO GROWTH AFTER 24 HOURS Resulted 12/28/18 20:33 Blood Blood Culture - Preliminary NO GROWTH AFTER 24 HOURS Resulted 12/27/18 22:00 Nasal Nares MRSA Culture - Final NO METHICILLIN RESISTANT STAPH AUREUS... Complete 12/28/18 09:30 Stool Clostridium difficile Toxin Assay - Final Complete 12/29/18 11:00 Abdominal Fluid Gram Stain - Final Resulted 12/29/18 11:00 Abdominal Fluid Aerobic Culture - Preliminary NO GROWTH AFTER 24 HOURS Resulted 12/29/18 11:00 Abdominal Fluid Anaerobic Culture - Preliminary NO GROWTH AFTER 24 HOURS Resulted 12/27/18 22:00 Rectum - Final NO CARBAPENEM-RESISTANT ENTEROBACTERI... Complete 12/27/18 22:00 Rectum VRE Culture - Final NO VANCOMYCIN RESISTANT ENTEROCOCCUS ... Complete Critical Care - Subjective ROS Limited/Unobtainable: No FI02: 40 Vent Support Breath Rate: 10 Vent Support Mode: AC Vent Tidal Volume: 500 Sputum Amount: None PEEP: 0.0 PIP: 14 I&O: Intake and Output 12/29/18 12/30/18 18:59 06:59 Intake Total 100 ml 538.708 ml Output Total 410 ml 130 ml Balance -310 ml 408.708 ml IV Total 100 ml 538.708 ml Output Urine Total 85 ml 20 ml Gastric Drainage Total 300 ml Drainage Total 25 ml 110 ml Estimated Blood Loss 0 ml ET-Tube: 8.0 ET Position: 23 Oj Gramajo MD Dec 30, 2018 20:59
[2018-12-31] VITALS (18 sets, daily range): BP systolic 154–185; BP diastolic 31–88
[2018-12-31 06:04] LABS: HEMATOCRIT 23.1 % (37.0-47.0); HEMOGLOBIN 7.4 G/DL (12.0-16.0); MEAN CORPUSCULAR VOLUME 92 FL (80-99); PLATELET COUNT 177 K/UL (150-450); RED BLOOD COUNT 2.52 M/UL (4.20-5.40); RED CELL DISTRIBUTION WIDTH 15.4 % (11.6-14.8); WHITE BLOOD COUNT 12.5 K/UL (4.8-10.8)
[2018-12-31 06:18] LABS: ALANINE AMINOTRANSFERASE 16 U/L (12-78); ALBUMIN 1.6 G/DL (3.4-5.0); ALBUMIN/GLOBULIN RATIO 0.4 (1.0-2.7); ALKALINE PHOSPHATASE 69 U/L (46-116); ANION GAP 10 mmol/L (5-15); ASPARTATE AMINO TRANSFERASE 29 U/L (15-37); BLOOD UREA NITROGEN 38 mg/dL (7-18); CALCIUM 7.5 MG/DL (8.5-10.1); CARBON DIOXIDE 29 MMOL/L (21-32); CHLORIDE 103 MMOL/L (98-107); CREATININE 4.4 MG/DL (0.55-1.30); POTASSIUM 3.8 MMOL/L (3.5-5.1); SODIUM 142 MMOL/L (136-145)
[2018-12-31] MEDS: Piperacillin/Tazobactam 2.25 GM in D5W 55 ML IV SCH ×3 (06:18→22:14)
[2018-12-31] MEDS: D5NS 1,000 ML IV SCH ×2 (06:19→18:02)
[2018-12-31] MEDS: Nephrovite tab (Rena-Vite) ORAL SCH (09:00)
--- NOTE | 2018-12-31 11:36 | Urology Progress Note ---
Assessment/Plan Assessment/Plan 1. Abdominal pain hx. 2. Status post recent right nephrectomy, presumably for renal cell carcinoma. 3. Chronic kidney disease. 4. Proteinuria. 5. Urinary frequency history. 6. Rule out neurogenic bladder. 7. Hematuria. 8. POD # 2 ,exp lap monitor clinically hematoma in right renal fossa and abdominal wall evacuated abx as ordered HD per nephrology voiding trial anytime OK with me removal of LULA drain per Dr. Price f/u on blood and abdominal fluid cx's d/w nursing staff d/w pt's family Subjective Allergies: Coded Allergies: SULFA (SULFONAMIDE ANTIBIOTICS) (Verified Allergy, Unknown, 11/21/14) COPIED FROM UNCODED SECTION Subjective all noted, s/p exp lap and colectomy 12/29, extubated, ICU, HD right flank LULA drain, minimal output Objective Last 24 Hour Vital Signs Date Time Temp Pulse Resp B/P (MAP) Pulse Ox O2 Delivery O2 Flow Rate FiO2 12/31/18 09:00 63 22 172/43 (86) 100 12/31/18 08:00 98.3 60 27 162/38 (79) 100 12/31/18 08:00 60 12/31/18 08:00 Venturi Mask 10.0 Venturi Mask 10.0 12/31/18 07:00 97.9 66 27 174/74 (107) 100 12/31/18 06:00 67 24 175/88 (117) 100 12/31/18 05:00 67 26 173/74 (107) 100 12/31/18 04:00 67 12/31/18 04:00 Venturi Mask 10.0 Venturi Mask 10.0 12/31/18 04:00 68 26 169/68 (101) 100 12/31/18 03:00 97.8 64 27 165/37 (79) 100 12/31/18 02:00 67 26 165/31 (75) 100 12/31/18 01:25 100 Venturi Mask 10.0 40 12/31/18 01:25 Venturi Mask 10.0 40 12/31/18 01:00 65 26 165/31 (75) 100 12/31/18 00:00 Venturi Mask 10.0 Venturi Mask 10.0 12/31/18 00:00 97.6 60 26 154/38 (76) 100 12/31/18 00:00 59 3/23/19 23:00 65 26 163/36 (78) 100 12/30/18 22:00 67 26 154/32 (72) 100 12/30/18 21:00 65 28 162/40 (80) 100 12/30/18 20:00 97.9 65 28 145/31 (69) 99 12/30/18 20:00 Venturi Mask 10.0 Venturi Mask 10.0 12/30/18 20:00 60 12/30/18 19:28 100 Venturi Mask 10.0 40 12/30/18 19:28 Venturi Mask 10.0 40 12/30/18 19:00 62 31 154/33 (73) 96 12/30/18 18:00 60 21 155/92 (113) 100 12/30/18 17:00 61 30 133/41 (71) 97 12/30/18 16:00 40 12/30/18 16:00 65 12/30/18 16:00 98.2 61 16 149/32 (71) 98 12/30/18 15:00 61 28 117/29 (58) 100 12/30/18 14:00 61 28 137/31 (66) 98 12/30/18 13:43 Venturi Mask 10.0 40 12/30/18 13:43 Venturi Mask 10.0 40 12/30/18 13:43 98 Venturi Mask 10.0 40 12/30/18 13:00 63 22 116/25 (55) 98 12/30/18 12:40 65 22 40 12/30/18 12:00 98.0 92 23 138/68 (91) 100 12/30/18 12:00 72 12/30/18 12:00 40 Intake and Output 12/30/18 12/31/18 19:00 07:00 Intake Total 1600 ml 405 ml Output Total 1930 ml 250 ml Balance -330 ml 155 ml IV Total 600 ml 405 ml Blood Product 1000 ml Output Urine Total 100 ml 250 ml Drainage Total 30 ml Hemodialysis UF 1000 ml Other 800 ml Microbiology Date/Time Source Procedure Growth Status 12/28/18 20:38 Blood Blood Culture - Preliminary NO GROWTH AFTER 48 HOURS Resulted 12/30/18 05:00 Sputum Gram Stain Pending Resulted 12/30/18 05:00 Sputum Sputum Culture - Preliminary NO GROWTH AFTER 24 HOURS Resulted 12/28/18 09:30 Stool Clostridium difficile Toxin Assay - Final Complete 12/29/18 11:00 Abdominal Fluid Gram Stain - Final Resulted 12/29/18 11:00 Abdominal Fluid Aerobic Culture - Preliminary NO GROWTH AFTER 48 HOURS Resulted 12/29/18 11:00 Abdominal Fluid Anaerobic Culture - Preliminary NO GROWTH AFTER 48 HOURS Resulted Current Medications Medications (Trade) Dose Ordered Sig/Kranthi Route PRN Reason Start Time Stop Time Status Last Admin Dose Admin Dextrose (Dextrose 50%) 25 ml Q30M PRN IV Hypoglycemia 12/29/18 16:15 01/26/19 22:44 Dextrose (Dextrose 50%) 50 ml Q30M PRN IV Hypoglycemia 12/29/18 16:15 01/26/19 22:44 Dextrose/Sodium Chloride 1,000 ml @ 50 mls/hr Q20H IV 12/29/18 16:30 01/28/19 16:29 12/31/18 06:19 Epoetin Skinny (Epoetin Skinny(ESRD on dialysis)) 2,000 unit TUE-TUE-TUE SUBQ 01/01/19 21:00 01/31/19 20:59 Epoetin Skinny (Epoetin Skinny(ESRD on dialysis)) 3,000 unit TUE-TUE-TUE SUBQ 01/01/19 21:00 01/31/19 20:59 Morphine Sulfate (Morphine Sulfate) 2 mg Q2H PRN IVP For Pain 12/29/18 16:45 01/05/19 14:44 12/30/18 15:56 Ondansetron HCl (Zofran) 4 mg Q6H PRN IVP Nausea & Vomiting 12/29/18 16:45 01/26/19 22:44 Piperacillin Sod/ Tazobactam Sod 2.25 gm/Dextrose 55 ml @ 110 mls/hr Q8HR IV 12/29/18 22:00 01/03/19 05:59 12/31/18 06:18 Sodium Chloride 1,000 ml @ 500 mls/hr Q2H PRN IVLG sbp<90 during hd 12/30/18 06:00 01/29/19 05:59 Vancomycin HCl (Vanco rx to dose) 1 ea DAILY PRN MISC Per rx protocol 12/30/18 09:00 01/27/19 16:59 Vancomycin HCl 750 mg/Sodium Chloride 275 ml @ 183.333 mls/hr ONCE ONCE IVPB 3/24/19 18:00 12/31/18 19:29 Vitamin B Complex/ Vit C/Folic Acid (Nephrovite) 1 tab DAILY ORAL 12/30/18 09:00 01/27/19 13:14 12/31/18 09:00 Laboratory Tests 12/30/18 12:54: White Blood Count 16.3H, Red Blood Count 2.77L, Hemoglobin 8.1L, Hematocrit 25.2L, Mean Corpuscular Volume 91, Mean Corpuscular Hemoglobin 29.1, Mean Corpuscular Hemoglobin Concent 32.0, Red Cell Distribution Width 15.1H, Platelet Count 179, Mean Platelet Volume 7.2, Neutrophils (%) (Auto) , Lymphocytes (%) (Auto) , Monocytes (%) (Auto) , Eosinophils (%) (Auto) , Basophils (%) (Auto) , Differential Total Cells Counted 100, Neutrophils % ( Manual) 88H, Lymphocytes % (Manual) 4L, Monocytes % (Manual) 1, Eosinophils % ( Manual) 3, Basophils % (Manual) 0, Band Neutrophils 4, Platelet Estimate Adequate, Platelet Morphology Normal, Hypochromasia 1+, Anisocytosis 1+ 12/30/18 13:20: Arterial Blood pH 7.431, Arterial Blood Partial Pressure CO2 44.2, Arterial Blood Partial Pressure O2 69.7L, Arterial Blood HCO3 28.7H, Arterial Blood Oxygen Saturation 92.8L, Arterial Blood Base Excess 4.0H, Christian Test Positive 12/30/18 16:00: White Blood Count 15.2H, Red Blood Count 2.67L, Hemoglobin 8.1L, Hematocrit 23.6L, Mean Corpuscular Volume 89, Mean Corpuscular Hemoglobin 30.3, Mean Corpuscular Hemoglobin Concent 34.2, Red Cell Distribution Width 15.1H, Platelet Count 169, Mean Platelet Volume 6.7, Neutrophils (%) (Auto) 86.1H, Lymphocytes (%) (Auto) 7.7L, Monocytes (%) (Auto) 3.0, Eosinophils (%) (Auto) 2.8, Basophils (%) (Auto) 0.5, Sodium Level 141, Potassium Level 3.7, Chloride Level 102, Carbon Dioxide Level 31, Anion Gap 8, Blood Urea Nitrogen 32H, Creatinine 3.7H, Estimat Glomerular Filtration Rate , Glucose Level 186H, Calcium Level 7.5L, Total Bilirubin 0.7, Aspartate Amino Transf (AST/SGOT) 33, Alanine Aminotransferase (ALT/SGPT) 19, Alkaline Phosphatase 69, Total Protein 6.1L, Albumin 1.7L, Globulin 4.4, Albumin/Globulin Ratio 0.4L 12/31/18 05:15: White Blood Count 12.5H, Red Blood Count 2.52L, Hemoglobin 7.4L, Hematocrit 23.1L, Mean Corpuscular Volume 92, Mean Corpuscular Hemoglobin 29.3, Mean Corpuscular Hemoglobin Concent 32.1, Red Cell Distribution Width 15.4H, Platelet Count 177, Mean Platelet Volume 7.7, Neutrophils (%) (Auto) , Lymphocytes (%) (Auto) , Monocytes (%) (Auto) , Eosinophils (%) (Auto) , Basophils (%) (Auto) , Differential Total Cells Counted 100, Neutrophils % ( Manual) 84H, Lymphocytes % (Manual) 7L, Monocytes % (Manual) 3, Eosinophils % ( Manual) 6H, Basophils % (Manual) 0, Band Neutrophils 0, Platelet Estimate Adequate, Platelet Morphology Normal, Anisocytosis 1+, Sodium Level 142, Potassium Level 3.8, Chloride Level 103, Carbon Dioxide Level 29, Anion Gap 10, Blood Urea Nitrogen 38H, Creatinine 4.4H, Estimat Glomerular Filtration Rate , Glucose Level 182H, Calcium Level 7.5L, Total Bilirubin 1.0, Aspartate Amino Transf (AST/SGOT) 29, Alanine Aminotransferase (ALT/SGPT) 16, Alkaline Phosphatase 69, Total Protein 5.9L, Albumin 1.6L, Globulin 4.3, Albumin/ Globulin Ratio 0.4L, Random Vancomycin Level 18.7 Height (Feet): 5 Height (Inches): 5.00 Weight (Pounds): 115 Objective exam stable robledo indwelling, grossly yellow urine LULA drain in right flank CT noted Kvng Epperson MD Dec 31, 2018 11:36
--- NOTE | 2018-12-31 13:07 | Nephrology Progress Note ---
Assessment/Plan Assessment/Plan A/P 1) ESRD- Had HD yesterday - monitor an daily basis. No HD today - recheck labs in am 2) ischemic colitis - s/p partial colectomy - s/p nephrectomy 3) HTN- schedule IV lopressor 4) Sepsis- Abx per ID Subjective Date patient seen: Dec 31, 2018 Time patient seen: 13:01 ROS Limited/Unobtainable: No Constitutional: Reports: malaise, weakness Allergies: Coded Allergies: SULFA (SULFONAMIDE ANTIBIOTICS) (Verified Allergy, Unknown, 11/21/14) COPIED FROM UNCODED SECTION Subjective Patient feeling tired and fatigued Objective Last 24 Hour Vital Signs Date Time Temp Pulse Resp B/P (MAP) Pulse Ox O2 Delivery O2 Flow Rate FiO2 12/31/18 12:00 Venturi Mask 10.0 Venturi Mask 10.0 12/31/18 12:00 98.4 60 25 176/46 (89) 100 12/31/18 11:00 60 25 179/43 (88) 100 12/31/18 10:00 62 25 185/42 (89) 100 12/31/18 09:00 63 22 172/43 (86) 100 12/31/18 08:00 98.3 60 27 162/38 (79) 100 12/31/18 08:00 60 12/31/18 08:00 Venturi Mask 10.0 Venturi Mask 10.0 12/31/18 07:00 97.9 66 27 174/74 (107) 100 12/31/18 06:00 67 24 175/88 (117) 100 12/31/18 05:00 67 26 173/74 (107) 100 12/31/18 04:00 67 12/31/18 04:00 Venturi Mask 10.0 Venturi Mask 10.0 12/31/18 04:00 68 26 169/68 (101) 100 12/31/18 03:00 97.8 64 27 165/37 (79) 100 12/31/18 02:00 67 26 165/31 (75) 100 12/31/18 01:25 100 Venturi Mask 10.0 40 12/31/18 01:25 Venturi Mask 10.0 40 12/31/18 01:00 65 26 165/31 (75) 100 12/31/18 00:00 Venturi Mask 10.0 Venturi Mask 10.0 12/31/18 00:00 97.6 60 26 154/38 (76) 100 12/31/18 00:00 59 12/30/18 23:00 65 26 163/36 (78) 100 12/30/18 22:00 67 26 154/32 (72) 100 12/30/18 21:00 65 28 162/40 (80) 100 12/30/18 20:00 97.9 65 28 145/31 (69) 99 12/30/18 20:00 Venturi Mask 10.0 Venturi Mask 10.0 12/30/18 20:00 60 12/30/18 19:28 100 Venturi Mask 10.0 40 12/30/18 19:28 Venturi Mask 10.0 40 12/30/18 19:00 62 31 154/33 (73) 96 12/30/18 18:00 60 21 155/92 (113) 100 12/30/18 17:00 61 30 133/41 (71) 97 12/30/18 16:00 40 12/30/18 16:00 65 12/30/18 16:00 98.2 61 16 149/32 (71) 98 12/30/18 15:00 61 28 117/29 (58) 100 12/30/18 14:00 61 28 137/31 (66) 98 12/30/18 13:43 Venturi Mask 10.0 40 12/30/18 13:43 Venturi Mask 10.0 40 12/30/18 13:43 98 Venturi Mask 10.0 40 Intake and Output 12/30/18 12/31/18 19:00 07:00 Intake Total 1600 ml 405 ml Output Total 1930 ml 250 ml Balance -330 ml 155 ml IV Total 600 ml 405 ml Blood Product 1000 ml Output Urine Total 100 ml 250 ml Drainage Total 30 ml Hemodialysis UF 1000 ml Other 800 ml Laboratory Tests 12/30/18 13:20: Arterial Blood pH 7.431, Arterial Blood Partial Pressure CO2 44.2, Arterial Blood Partial Pressure O2 69.7L, Arterial Blood HCO3 28.7H, Arterial Blood Oxygen Saturation 92.8L, Arterial Blood Base Excess 4.0H, Christian Test Positive 12/30/18 16:00: White Blood Count 15.2H, Red Blood Count 2.67L, Hemoglobin 8.1L, Hematocrit 23.6L, Mean Corpuscular Volume 89, Mean Corpuscular Hemoglobin 30.3, Mean Corpuscular Hemoglobin Concent 34.2, Red Cell Distribution Width 15.1H, Platelet Count 169, Mean Platelet Volume 6.7, Neutrophils (%) (Auto) 86.1H, Lymphocytes (%) (Auto) 7.7L, Monocytes (%) (Auto) 3.0, Eosinophils (%) (Auto) 2.8, Basophils (%) (Auto) 0.5, Sodium Level 141, Potassium Level 3.7, Chloride Level 102, Carbon Dioxide Level 31, Anion Gap 8, Blood Urea Nitrogen 32H, Creatinine 3.7H, Estimat Glomerular Filtration Rate , Glucose Level 186H, Calcium Level 7.5L, Total Bilirubin 0.7, Aspartate Amino Transf (AST/SGOT) 33, Alanine Aminotransferase (ALT/SGPT) 19, Alkaline Phosphatase 69, Total Protein 6.1L, Albumin 1.7L, Globulin 4.4, Albumin/Globulin Ratio 0.4L 12/31/18 05:15: White Blood Count 12.5H, Red Blood Count 2.52L, Hemoglobin 7.4L, Hematocrit 23.1L, Mean Corpuscular Volume 92, Mean Corpuscular Hemoglobin 29.3, Mean Corpuscular Hemoglobin Concent 32.1, Red Cell Distribution Width 15.4H, Platelet Count 177, Mean Platelet Volume 7.7, Neutrophils (%) (Auto) , Lymphocytes (%) (Auto) , Monocytes (%) (Auto) , Eosinophils (%) (Auto) , Basophils (%) (Auto) , Sodium Level 142, Potassium Level 3.8, Chloride Level 103 , Carbon Dioxide Level 29, Anion Gap 10, Blood Urea Nitrogen 38H, Creatinine 4.4H, Estimat Glomerular Filtration Rate , Glucose Level 182H, Calcium Level 7.5L, Total Bilirubin 1.0, Aspartate Amino Transf (AST/SGOT) 29, Alanine Aminotransferase (ALT/SGPT) 16, Alkaline Phosphatase 69, Total Protein 5.9L, Albumin 1.6L, Globulin 4.3, Albumin/Globulin Ratio 0.4L, Differential Total Cells Counted 100, Neutrophils % (Manual) 84H, Lymphocytes % (Manual) 7L, Monocytes % (Manual) 3, Eosinophils % (Manual) 6H, Basophils % (Manual) 0, Band Neutrophils 0, Platelet Estimate Adequate, Platelet Morphology Normal, Anisocytosis 1+, Random Vancomycin Level 18.7 Height (Feet): 5 Height (Inches): 5.00 Weight (Pounds): 115 General Appearance: alert EENT: normal ENT inspection Neck: normal alignment, supple Cardiovascular: normal rate, regular rhythm Respiratory/Chest: normal breath sounds Abdomen: non tender, soft Edema: no edema noted Arm (L), no edema noted Arm (R), no edema noted Leg (L), no edema noted Leg (R), no edema noted Pedal (L), no edema noted Pedal (R), no edema noted Generalized Jonny Valles MD Dec 31, 2018 13:07
[2018-12-31] MEDS ORDERED: Metoprolol 5mg/5ml Inj IVP SCH ×2 (17:00→21:00)
--- NOTE | 2018-12-31 17:44 | Internal Med Progress Note ---
Subjective Physician Name Oj Turcios Attending Physician Oj Turcios MD Current Medications Medications (Trade) Dose Ordered Sig/Kranthi Route PRN Reason Start Time Stop Time Status Last Admin Dose Admin Dextrose (Dextrose 50%) 25 ml Q30M PRN IV Hypoglycemia 12/31/18 17:45 01/26/19 22:44 Dextrose (Dextrose 50%) 50 ml Q30M PRN IV Hypoglycemia 12/31/18 17:45 01/26/19 22:44 Dextrose/Sodium Chloride 1,000 ml @ 50 mls/hr Q20H IV 12/31/18 18:00 01/28/19 17:59 Epoetin Skinny (Epoetin Skinny(ESRD on dialysis)) 2,000 unit TUE- SUBQ 01/01/19 21:00 01/31/19 20:59 Epoetin Skinny (Epoetin Skinny(ESRD on dialysis)) 3,000 unit TUE- SUBQ 01/01/19 21:00 01/31/19 20:59 Metoprolol Tartrate (Lopressor) 5 mg Q4HR IVP 12/31/18 21:00 01/30/19 16:59 UNV Morphine Sulfate (Morphine Sulfate) 2 mg Q2H PRN IVP For Pain 12/31/18 18:00 01/05/19 17:59 Ondansetron HCl (Zofran) 4 mg Q6H PRN IVP Nausea & Vomiting 12/31/18 17:30 01/26/19 17:29 Piperacillin Sod/ Tazobactam Sod 2.25 gm/Dextrose 55 ml @ 110 mls/hr Q8HR IV 12/31/18 22:00 01/03/19 05:59 Vancomycin HCl (Vanco rx to dose) 1 ea DAILY PRN MISC Per rx protocol 12/31/18 17:30 01/30/19 17:29 Vancomycin HCl 750 mg/Sodium Chloride 275 ml @ 183.333 mls/hr ONCE ONCE IVPB 12/31/18 18:00 12/31/18 19:29 Vitamin B Complex/ Vit C/Folic Acid (Nephrovite) 1 tab DAILY ORAL 01/01/19 09:00 01/27/19 13:14 Allergies: Coded Allergies: SULFA (SULFONAMIDE ANTIBIOTICS) (Verified Allergy, Unknown, 2/12/15) COPIED FROM UNCODED SECTION Subjective extubated no cp or sob some abd pain no HD Hgb down to 7.4 transfered out of icu to [facility] 12 pt ROS neg except above positives Objective Last Vital Signs Date Time Temp Pulse Resp B/P (MAP) Pulse Ox O2 Delivery O2 Flow Rate FiO2 12/31/18 16:05 60 167/49 12/31/18 16:00 Venturi Mask 10.0 Venturi Mask 10.0 12/31/18 16:00 98.7 25 100 12/31/18 01:25 40 Laboratory Tests Test 12/31/18 05:15 White Blood Count 12.5 K/UL (4.8-10.8) H Red Blood Count 2.52 M/UL (4.20-5.40) L Hemoglobin 7.4 G/DL (12.0-16.0) L Hematocrit 23.1 % (37.0-47.0) L Mean Corpuscular Volume 92 FL (80-99) Mean Corpuscular Hemoglobin 29.3 PG (27.0-31.0) Mean Corpuscular Hemoglobin Concent 32.1 G/DL (32.0-36.0) Red Cell Distribution Width 15.4 % (11.6-14.8) H Platelet Count 177 K/UL (150-450) Mean Platelet Volume 7.7 FL (6.5-10.1) Neutrophils (%) (Auto) % (45.0-75.0) Lymphocytes (%) (Auto) % (20.0-45.0) Monocytes (%) (Auto) % (1.0-10.0) Eosinophils (%) (Auto) % (0.0-3.0) Basophils (%) (Auto) % (0.0-2.0) Differential Total Cells Counted 100 Neutrophils % (Manual) 84 % (45-75) H Lymphocytes % (Manual) 7 % (20-45) L Monocytes % (Manual) 3 % (1-10) Eosinophils % (Manual) 6 % (0-3) H Basophils % (Manual) 0 % (0-2) Band Neutrophils 0 % (0-8) Platelet Estimate Adequate Platelet Morphology Normal Anisocytosis 1+ Sodium Level 142 MMOL/L (136-145) Potassium Level 3.8 MMOL/L (3.5-5.1) Chloride Level 103 MMOL/L (98-107) Carbon Dioxide Level 29 MMOL/L (21-32) Anion Gap 10 mmol/L (5-15) Blood Urea Nitrogen 38 mg/dL (7-18) H Creatinine 4.4 MG/DL (0.55-1.30) H Estimat Glomerular Filtration Rate mL/min (>60) Glucose Level 182 MG/DL (74-106) H Calcium Level 7.5 MG/DL (8.5-10.1) L Total Bilirubin 1.0 MG/DL (0.2-1.0) Aspartate Amino Transf (AST/SGOT) 29 U/L (15-37) Alanine Aminotransferase (ALT/SGPT) 16 U/L (12-78) Alkaline Phosphatase 69 U/L (46-116) Total Protein 5.9 G/DL (6.4-8.2) L Albumin 1.6 G/DL (3.4-5.0) L Globulin 4.3 g/dL Albumin/Globulin Ratio 0.4 (1.0-2.7) L Random Vancomycin Level 18.7 ug/mL Microbiology Date/Time Source Procedure Growth Status 12/28/18 20:38 Blood Blood Culture - Preliminary NO GROWTH AFTER 48 HOURS Resulted 12/28/18 20:33 Blood Blood Culture - Preliminary NO GROWTH AFTER 48 HOURS Resulted 12/30/18 05:00 Sputum Gram Stain - Final Resulted 12/30/18 05:00 Sputum Sputum Culture - Preliminary NO GROWTH AFTER 24 HOURS Resulted 12/29/18 11:00 Abdominal Fluid Gram Stain - Final Resulted 12/29/18 11:00 Abdominal Fluid Aerobic Culture - Preliminary NO GROWTH AFTER 48 HOURS Resulted 12/29/18 11:00 Abdominal Fluid Anaerobic Culture - Preliminary NO GROWTH AFTER 48 HOURS Resulted Intake and Output 12/30/18 12/31/18 19:00 07:00 Intake Total 1600 ml 405 ml Output Total 1930 ml 250 ml Balance -330 ml 155 ml IV Total 600 ml 405 ml Blood Product 1000 ml Output Urine Total 100 ml 250 ml Drainage Total 30 ml Hemodialysis UF 1000 ml Other 800 ml Objective gen - NAD. awake. HEENT - NC/AT. CVS - RRR. Nl s1,2 Lungs - CTA b/l Abd - covered with dressing. c/d/i. R LULA drain Ext - no c/c/e Assessment/Plan Assessment/Plan ASSESSMENT: 1. Ischemic bowel s/p diagnostic laparoscopy, exploratory laparotomy, right colectomy, drainage of abdominal wall fluid collection, evacuation of retroperitoneal hematoma (12/29) 2. Elevated lipase-may be falsely elevated lipase given the patient is not very tender over epigastric region versus acute pancreatitis. 3. Abdominal pain possibly also related to postsurgical abdominal infection. 4. End-stage renal disease, on hemodialysis. 5. Recent right kidney nephrectomy for renal cell carcinoma. 6. Diabetes. 7. Hypertension. 8. Hyperlipidemia. 9. pneumatosis which may be related to infectious colitis vs ischemic bowel PLAN: 1. Medsurg 2. IVF - D5NS @ 50cc/hr 3. Antibiotics, Zosyn and Vanco IV 4. ID recs appreciated 5. Surgery recs appreciated; 6. Nephrology consulted for hemodialysis orders. 7. NPO. 8. Morphine 2mg IV Q 2hrs prn pain DVT prophylaxis, SCDs. 9. Full Code. Oj Turcios MD Dec 31, 2018 17:44
[2018-12-31] MEDS ORDERED: Morphine Sulfate 2mg/ml Inj(IV/IM USE ONLY) IVP PRN (18:00)
[2018-12-31] MEDS ORDERED: Vancomycin 750 MG in NS 275 ML IVPB ONE (18:00)
[2018-12-31] MEDS ORDERED: Vancomycin 750mg/NS 275ml IVPB ONE ×2 (18:00)
--- NOTE | 2018-12-31 18:10 | Pulmonolgy Critical Care Note ---
Critical Care - Asmt/Plan Assessment/Plan: Pulmonary Progress Note HPI This patient is sp R Colectomy, currently remains intubated, recently underwent a nephrectomy for large right kidney cancer. She subsequently has started dialysis for the past 2 weeks. She was at dialysis today when she felt pain in her abdomen. She also felt gassy. She denies nausea or vomiting. She denies fever or chills. She denies chest pain or shortness of breath. S/p Extubation , doing well Allergies: Coded Allergies: SULFA (SULFONAMIDE ANTIBIOTICS) (Verified Allergy, Unknown, 11/21/14) COPIED FROM UNCODED SECTION Patient History Past Medical History: R Kidney Cancer, DM, HTN, HLP Past Surgical History: R Colectomy, R Nephrectomy 1 week ago. Review of Systems All Other Systems: negative except mentioned in HPI Physical Exam Vital Signs Noted General Appearance: no apparent distress, alert, intubated, non-toxic Head: normocephalic, atraumatic Eyes: bilateral eye normal inspection, bilateral eye PERRL ENT: hearing grossly normal, normal pharynx, no angioedema, normal voice Neck: full range of motion, supple/symm/no masses Respiratory: chest non-tender, lungs clear, normal breath sounds, no respiratory distress, no retraction, no accessory muscle use, speaking full sentences Cardiovascular #1: regular rate, rhythm, no edema Gastrointestinal: normal bowel sounds, soft, non-distended, no guarding, no rebound, tenderness - Mild ttp in epigastrium, post operative changes Rectal: deferred Musculoskeletal: back normal, gait/station normal, normal range of motion, non- tender Neurologic: alert, o, responsive, motor strength/tone normal, sensory intact, speech normal Psychiatric: judgement/insight normal, memory normal, mood/affect normal, no suicidal/homicidal ideation Skin: normal color, no rash, warm/dry, well hydrated Impression: Primary Impression: Ischemic Colitis, s/p Colectomy Retroperitoneal Collection Hypertension DM HL Plan 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 Laboratory Tests and XR noted Test 12/27/18 17:32 12/27/18 17:35 Urine Color Yellow Urine Appearance Clear Urine pH 9 (4.5-8.0) Urine Specific [place] 1.015 (1.005-1.035) Urine Protein 3+ (NEGATIVE) H Urine Glucose (UA) Negative (NEGATIVE) Urine Ketones Negative (NEGATIVE) Urine Blood 2+ (NEGATIVE) H Urine Nitrite Negative (NEGATIVE) Urine Bilirubin Negative (NEGATIVE) Urine Urobilinogen Normal MG/DL (0.0-1.0) Urine Leukocyte Esterase Negative (NEGATIVE) Urine RBC 0-2 /HPF (0 - 2) Urine WBC 0-2 /HPF (0 - 2) Urine Squamous Epithelial Cells Occasional /LPF Urine Bacteria None /HPF (NONE) White Blood Count 13.9 K/UL (4.8-10.8) H Red Blood Count 3.30 M/UL (4.20-5.40) L Hemoglobin 9.6 G/DL (12.0-16.0) L Hematocrit 29.3 % (37.0-47.0) L Mean Corpuscular Volume 89 FL (80-99) Mean Corpuscular Hemoglobin 29.1 PG (27.0-31.0) Mean Corpuscular Hemoglobin Concent 32.8 G/DL (32.0-36.0) Red Cell Distribution Width 15.6 % (11.6-14.8) H Platelet Count 271 K/UL (150-450) Mean Platelet Volume 6.5 FL (6.5-10.1) Neutrophils (%) (Auto) 80.9 % (45.0-75.0) H Lymphocytes (%) (Auto) 9.4 % (20.0-45.0) L Monocytes (%) (Auto) 5.5 % (1.0-10.0) Eosinophils (%) (Auto) 3.7 % (0.0-3.0) H Basophils (%) (Auto) 0.5 % (0.0-2.0) Sodium Level 139 MMOL/L (136-145) Potassium Level 3.9 MMOL/L (3.5-5.1) Chloride Level 101 MMOL/L (98-107) Carbon Dioxide Level 31 MMOL/L (21-32) Anion Gap 7 mmol/L (5-15) Blood Urea Nitrogen 29 mg/dL (7-18) H Creatinine 2.9 MG/DL (0.55-1.30) H Estimate Glomerular Filtration Rate mL/min (>60) Glucose Level 83 MG/DL (74-106) Calcium Level 8.6 MG/DL (8.5-10.1) Total Bilirubin 0.5 MG/DL (0.2-1.0) Aspartate Amino Transferase (AST) 39 U/L (15-37) H Alanine Aminotransferase (ALT) 22 U/L (12-78) Alkaline Phosphatase 89 U/L (46-116) Total Protein 7.8 G/DL (6.4-8.2) Albumin 2.8 G/DL (3.4-5.0) L Globulin 5.0 g/dL Albumin/Globulin Ratio 0.6 (1.0-2.7) L Lipase 529 U/L (73-393) H CT abd/pelvis Impression Multiple postoperative findings and some other findings that could be postoperative infection. Critical Care - Objective Last 24 Hour Vital Signs Date Time Temp Pulse Resp B/P (MAP) Pulse Ox O2 Delivery O2 Flow Rate FiO2 12/31/18 16:05 60 167/49 12/31/18 16:00 Venturi Mask 10.0 Venturi Mask 10.0 12/31/18 16:00 98.7 60 25 167/49 (88) 100 12/31/18 16:00 62 12/31/18 15:00 60 25 171/57 (95) 100 12/31/18 14:00 60 22 172/48 (89) 100 12/31/18 13:00 60 16 179/46 (90) 99 12/31/18 12:00 Venturi Mask 10.0 Venturi Mask 10.0 12/31/18 12:00 98.4 60 25 176/46 (89) 100 12/31/18 12:00 60 12/31/18 11:00 60 25 179/43 (88) 100 12/31/18 10:00 62 25 185/42 (89) 100 12/31/18 09:00 63 22 172/43 (86) 100 12/31/18 08:00 98.3 60 27 162/38 (79) 100 12/31/18 08:00 60 12/31/18 08:00 Venturi Mask 10.0 Venturi Mask 10.0 12/31/18 07:00 97.9 66 27 174/74 (107) 100 12/31/18 06:00 67 24 175/88 (117) 100 12/31/18 05:00 67 26 173/74 (107) 100 12/31/18 04:00 67 12/31/18 04:00 Venturi Mask 10.0 Venturi Mask 10.0 12/31/18 04:00 68 26 169/68 (101) 100 12/31/18 03:00 97.8 64 27 165/37 (79) 100 12/31/18 02:00 67 26 165/31 (75) 100 12/31/18 01:25 100 Venturi Mask 10.0 40 12/31/18 01:25 Venturi Mask 10.0 40 12/31/18 01:00 65 26 165/31 (75) 100 12/31/18 00:00 Venturi Mask 10.0 Venturi Mask 10.0 12/31/18 00:00 97.6 60 26 154/38 (76) 100 12/31/18 00:00 59 12/30/18 23:00 65 26 163/36 (78) 100 12/30/18 22:00 67 26 154/32 (72) 100 12/30/18 21:00 65 28 162/40 (80) 100 12/30/18 20:00 97.9 65 28 145/31 (69) 99 12/30/18 20:00 Venturi Mask 10.0 Venturi Mask 10.0 12/30/18 20:00 60 12/30/18 19:28 100 Venturi Mask 10.0 40 12/30/18 19:28 Venturi Mask 10.0 40 12/30/18 19:00 62 31 154/33 (73) 96 Micro: Microbiology Date/Time Source Procedure Growth Status 12/28/18 20:38 Blood Blood Culture - Preliminary NO GROWTH AFTER 48 HOURS Resulted 12/28/18 20:33 Blood Blood Culture - Preliminary NO GROWTH AFTER 48 HOURS Resulted 12/30/18 05:00 Sputum Gram Stain - Final Resulted 12/30/18 05:00 Sputum Sputum Culture - Preliminary NO GROWTH AFTER 24 HOURS Resulted 12/29/18 11:00 Abdominal Fluid Gram Stain - Final Resulted 12/29/18 11:00 Abdominal Fluid Aerobic Culture - Preliminary NO GROWTH AFTER 48 HOURS Resulted 12/29/18 11:00 Abdominal Fluid Anaerobic Culture - Preliminary NO GROWTH AFTER 48 HOURS Resulted Critical Care - Subjective ROS Limited/Unobtainable: No FI02: 40 Vent Support Breath Rate: 10 Vent Support Mode: AC Vent Tidal Volume: 500 Sputum Amount: None PEEP: 0.0 PIP: 14 I&O: Intake and Output 12/30/18 12/31/18 19:00 07:00 Intake Total 1600 ml 405 ml Output Total 1930 ml 250 ml Balance -330 ml 155 ml IV Total 600 ml 405 ml Blood Product 1000 ml Output Urine Total 100 ml 250 ml Drainage Total 30 ml Hemodialysis UF 1000 ml Other 800 ml ET-Tube: 8.0 ET Position: 23 Oj Gramajo MD Dec 31, 2018 18:10
[2018-12-31] MEDS: Enalaprilat 2.5mg/2ml Inj IV SCH (18:34)
--- NOTE | 2018-12-31 19:39 | General Progress Note ---
Assessment/Plan Assessment/Plan Assessment - ischemic colitis - s/p partial colectomy - s/p nephrectomy - ESRD/HD - HTN Recommendations - post op care - wean / extubate - follow labs - feeds when OK with surgery - f/u path Subjective Allergies: Coded Allergies: SULFA (SULFONAMIDE ANTIBIOTICS) (Verified Allergy, Unknown, 11/21/14) COPIED FROM UNCODED SECTION Subjective Above noted seen in ICU - subsequently transferred to surgical floor POD #3, s/p partial colectomy Objective Last 24 Hour Vital Signs Date Time Temp Pulse Resp B/P (MAP) Pulse Ox O2 Delivery O2 Flow Rate FiO2 12/31/18 18:34 170/50 12/31/18 16:05 60 167/49 12/31/18 16:00 Venturi Mask 10.0 Venturi Mask 10.0 12/31/18 16:00 98.7 60 25 167/49 (88) 100 12/31/18 16:00 62 12/31/18 15:00 60 25 171/57 (95) 100 12/31/18 14:00 60 22 172/48 (89) 100 12/31/18 13:00 60 16 179/46 (90) 99 12/31/18 12:00 Venturi Mask 10.0 Venturi Mask 10.0 12/31/18 12:00 98.4 60 25 176/46 (89) 100 12/31/18 12:00 60 12/31/18 11:00 60 25 179/43 (88) 100 12/31/18 10:00 62 25 185/42 (89) 100 12/31/18 09:00 63 22 172/43 (86) 100 12/31/18 08:00 98.3 60 27 162/38 (79) 100 12/31/18 08:00 60 12/31/18 08:00 Venturi Mask 10.0 Venturi Mask 10.0 12/31/18 07:00 97.9 66 27 174/74 (107) 100 12/31/18 06:00 67 24 175/88 (117) 100 12/31/18 05:00 67 26 173/74 (107) 100 12/31/18 04:00 67 12/31/18 04:00 Venturi Mask 10.0 Venturi Mask 10.0 12/31/18 04:00 68 26 169/68 (101) 100 12/31/18 03:00 97.8 64 27 165/37 (79) 100 12/31/18 02:00 67 26 165/31 (75) 100 12/31/18 01:25 100 Venturi Mask 10.0 40 12/31/18 01:25 Venturi Mask 10.0 40 12/31/18 01:00 65 26 165/31 (75) 100 12/31/18 00:00 Venturi Mask 10.0 Venturi Mask 10.0 12/31/18 00:00 97.6 60 26 154/38 (76) 100 12/31/18 00:00 59 12/30/18 23:00 65 26 163/36 (78) 100 12/30/18 22:00 67 26 154/32 (72) 100 12/30/18 21:00 65 28 162/40 (80) 100 12/30/18 20:00 97.9 65 28 145/31 (69) 99 12/30/18 20:00 Venturi Mask 10.0 Venturi Mask 10.0 12/30/18 20:00 60 Intake and Output 12/30/18 12/31/18 18:59 06:59 Intake Total 1655 ml 455 ml Output Total 2130 ml 250 ml Balance -475 ml 205 ml IV Total 655 ml 455 ml Blood Product 1000 ml Output Urine Total 100 ml 250 ml Drainage Total 30 ml Hemodialysis UF 1000 ml Other 1000 ml Laboratory Tests 12/31/18 05:15: White Blood Count 12.5H, Red Blood Count 2.52L, Hemoglobin 7.4L, Hematocrit 23.1L, Mean Corpuscular Volume 92, Mean Corpuscular Hemoglobin 29.3, Mean Corpuscular Hemoglobin Concent 32.1, Red Cell Distribution Width 15.4H, Platelet Count 177, Mean Platelet Volume 7.7, Neutrophils (%) (Auto) , Lymphocytes (%) (Auto) , Monocytes (%) (Auto) , Eosinophils (%) (Auto) , Basophils (%) (Auto) , Differential Total Cells Counted 100, Neutrophils % ( Manual) 84H, Lymphocytes % (Manual) 7L, Monocytes % (Manual) 3, Eosinophils % ( Manual) 6H, Basophils % (Manual) 0, Band Neutrophils 0, Platelet Estimate Adequate, Platelet Morphology Normal, Anisocytosis 1+, Sodium Level 142, Potassium Level 3.8, Chloride Level 103, Carbon Dioxide Level 29, Anion Gap 10, Blood Urea Nitrogen 38H, Creatinine 4.4H, Estimat Glomerular Filtration Rate , Glucose Level 182H, Calcium Level 7.5L, Total Bilirubin 1.0, Aspartate Amino Transf (AST/SGOT) 29, Alanine Aminotransferase (ALT/SGPT) 16, Alkaline Phosphatase 69, Total Protein 5.9L, Albumin 1.6L, Globulin 4.3, Albumin/ Globulin Ratio 0.4L, Random Vancomycin Level 18.7 Height (Feet): 5 Height (Inches): 5.00 Weight (Pounds): 115 Objective Elderly woman NCAT (+) ETT and NGT neck supple CTA RRR abd large dressing and (R) LULA no edema Kristan Rabago MD Dec 31, 2018 19:39
--- NOTE | 2018-12-31 21:22 | General Progress Note ---
Progress Note Progress Note no acute events. downgraded out of ICU. labs noted. exam stable. overall improving. need to keep close eye on her over the next few days. Tyrese Price Dec 31, 2018 21:22
[2019-01-01] VITALS: BP 172/56
[2019-01-01] MEDS: Enalaprilat 2.5mg/2ml Inj IV SCH ×3 (00:14→12:00)
[2019-01-01 04:00] VITALS: BP 179/55
[2019-01-01] MEDS: Piperacillin/Tazobactam 2.25 GM in D5W 55 ML IV SCH ×2 (05:20→22:12)
[2019-01-01 07:56] LABS: HEMATOCRIT 23.2 % (37.0-47.0); HEMOGLOBIN 7.2 G/DL (12.0-16.0); MEAN CORPUSCULAR VOLUME 93 FL (80-99); PLATELET COUNT 178 K/UL (150-450); RED BLOOD COUNT 2.51 M/UL (4.20-5.40); RED CELL DISTRIBUTION WIDTH 15.3 % (11.6-14.8); WHITE BLOOD COUNT 7.8 K/UL (4.8-10.8)
[2019-01-01 08:32] LABS: ANION GAP 14 mmol/L (5-15); BLOOD UREA NITROGEN 40 mg/dL (7-18); CALCIUM 7.5 MG/DL (8.5-10.1); CARBON DIOXIDE 25 MMOL/L (21-32); CHLORIDE 106 MMOL/L (98-107); CREATININE 4.9 MG/DL (0.55-1.30); POTASSIUM 3.7 MMOL/L (3.5-5.1); SODIUM 145 MMOL/L (136-145)
[2019-01-01] MEDS ORDERED: Epoetin Alfa(ESRD on dialysis)10,000 unit/ml vial SUBQ SCH (09:00)
--- NOTE | 2019-01-01 10:17 | Urology Progress Note ---
Assessment/Plan Assessment/Plan 1. Abdominal pain hx. 2. Status post recent right nephrectomy, presumably for renal cell carcinoma. 3. Chronic kidney disease. 4. Proteinuria. 5. Urinary frequency history. 6. Rule out neurogenic bladder. 7. Hematuria. 8. POD # 3 ,exp lap monitor clinically hematoma in right renal fossa and abdominal wall evacuated abx as ordered HD per nephrology voiding trial anytime OK with me removal of LULA drain per Dr. Price f/u on blood and abdominal fluid cx's d/w nursing staff Subjective Allergies: Coded Allergies: SULFA (SULFONAMIDE ANTIBIOTICS) (Verified Allergy, Unknown, 11/21/14) COPIED FROM UNCODED SECTION Subjective all noted, s/p exp lap and colectomy 12/29, out of ICU right flank LULA drain, minimal output Objective Last 24 Hour Vital Signs Date Time Temp Pulse Resp B/P (MAP) Pulse Ox O2 Delivery O2 Flow Rate FiO2 01/01/19 09:39 Venturi Mask 10.0 40 01/01/19 09:39 100 Venturi Mask 10.0 40 01/01/19 05:20 179/55 01/01/19 04:00 99.0 64 18 179/55 (96) 98 01/01/19 00:14 178/56 01/01/19 00:00 98.1 71 18 172/56 (94) 95 12/31/18 20:00 98.4 62 20 178/57 (97) 98 12/31/18 20:00 Nasal Cannula 3.0 12/31/18 18:34 170/50 12/31/18 16:05 60 167/49 12/31/18 16:00 Venturi Mask 10.0 Venturi Mask 10.0 12/31/18 16:00 98.7 60 25 167/49 (88) 100 12/31/18 16:00 62 12/31/18 15:00 60 25 171/57 (95) 100 12/31/18 14:00 60 22 172/48 (89) 100 12/31/18 13:00 60 16 179/46 (90) 99 12/31/18 12:00 Venturi Mask 10.0 Venturi Mask 10.0 12/31/18 12:00 98.4 60 25 176/46 (89) 100 12/31/18 12:00 60 12/31/18 11:00 60 25 179/43 (88) 100 Intake and Output 12/31/18 01/01/19 19:00 07:00 Intake Total 50 ml 450 ml Output Total 495 ml 750 ml Balance -445 ml -300 ml IV Total 50 ml 450 ml Output Urine Total 455 ml 700 ml Drainage Total 40 ml 50 ml Microbiology Date/Time Source Procedure Growth Status 12/28/18 20:38 Blood Blood Culture - Preliminary NO GROWTH AFTER 72 HOURS Resulted 12/31/18 06:15 Sputum Induced Gram Stain Pending Resulted 12/31/18 06:15 Sputum Induced Sputum Culture - Preliminary NORMAL UPPER RESPIRATORY CINDI AT 24 ... Resulted 12/28/18 09:30 Stool Clostridium difficile Toxin Assay - Final Complete 12/29/18 11:00 Abdominal Fluid Gram Stain - Final Resulted 12/29/18 11:00 Abdominal Fluid Aerobic Culture - Preliminary NO GROWTH AFTER 72 HOURS Resulted 12/29/18 11:00 Abdominal Fluid Anaerobic Culture - Preliminary NO GROWTH AFTER 72 HOURS Resulted Current Medications Medications (Trade) Dose Ordered Sig/Kranthi Route PRN Reason Start Time Stop Time Status Last Admin Dose Admin Dextrose (Dextrose 50%) 25 ml Q30M PRN IV Hypoglycemia 12/31/18 17:45 01/26/19 22:44 Dextrose (Dextrose 50%) 50 ml Q30M PRN IV Hypoglycemia 12/31/18 17:45 01/26/19 22:44 Dextrose/Sodium Chloride 1,000 ml @ 50 mls/hr Q20H IV 12/31/18 18:00 01/28/19 17:59 12/31/18 18:02 Enalaprilat (Vasotec) 2.5 mg EVERY 6 HOURS IV 12/31/18 18:00 01/30/19 17:59 01/01/19 05:20 Epoetin Skinny (Epoetin Skinny(ESRD on dialysis)) 2,000 unit TUE-TUE-TUE SUBQ 01/01/19 21:00 01/31/19 20:59 Epoetin Skinny (Epoetin Skinny(ESRD on dialysis)) 3,000 unit TUE-TUE-TUE SUBQ 01/01/19 21:00 01/31/19 20:59 Morphine Sulfate (Morphine Sulfate) 2 mg Q2H PRN IVP For Pain 12/31/18 18:00 01/05/19 17:59 01/01/19 05:20 Ondansetron HCl (Zofran) 4 mg Q6H PRN IVP Nausea & Vomiting 12/31/18 17:30 01/26/19 17:29 Piperacillin Sod/ Tazobactam Sod 2.25 gm/Dextrose 55 ml @ 110 mls/hr Q8HR IV 12/31/18 22:00 01/03/19 05:59 01/01/19 05:20 Vancomycin HCl (Vanco rx to dose) 1 ea DAILY PRN MISC Per rx protocol 12/31/18 17:30 01/30/19 17:29 Vitamin B Complex/ Vit C/Folic Acid (Nephrovite) 1 tab DAILY ORAL 01/01/19 09:00 01/27/19 13:14 Laboratory Tests 01/01/19 05:57: White Blood Count 7.8, Red Blood Count 2.51L, Hemoglobin 7.2L, Hematocrit 23.2L , Mean Corpuscular Volume 93, Mean Corpuscular Hemoglobin 28.6, Mean Corpuscular Hemoglobin Concent 30.8L, Red Cell Distribution Width 15.3H, Platelet Count 178, Mean Platelet Volume 7.5, Neutrophils (%) (Auto) , Lymphocytes (%) (Auto) , Monocytes (%) (Auto) , Eosinophils (%) (Auto) , Basophils (%) (Auto) , Neutrophils % (Manual) [Pending], Lymphocytes % (Manual) [Pending], Platelet Estimate [Pending], Platelet Morphology [Pending], Sodium Level 145, Potassium Level 3.7, Chloride Level 106, Carbon Dioxide Level 25, Anion Gap 14, Blood Urea Nitrogen 40H, Creatinine 4.9H, Estimat Glomerular Filtration Rate , Glucose Level 205H, Calcium Level 7.5L Height (Feet): 5 Height (Inches): 5.00 Weight (Pounds): 124 Objective exam stable rob[place]o indwelling, grossly yellow urine LULA drain in right flank CT noted Kvng Epperson MD Jan 01, 2019 10:17
[2019-01-01] MEDS: Nephrovite tab (Rena-Vite) ORAL SCH (10:34)
[2019-01-01] MEDS ORDERED: Heparin Sod 1000 units/ml 10ml IV PRN (12:00)
--- NOTE | 2019-01-01 12:30 | GI Progress Note ---
Assessment/Plan Problems: (1) Ischemic colon ICD Codes: K55.9 - Vascular disorder of intestine, unspecified SNOMED: 57293717 (2) Diarrhea ICD Codes: R19.7 - Diarrhea, unspecified SNOMED: 68254515 (3) Anemia ICD Codes: D64.9 - Anemia, unspecified SNOMED: 958179965 (4) Pancreatitis ICD Codes: K85.90 - Acute pancreatitis without necrosis or infection, unspecified SNOMED: 93732394 (5) Ischemic colitis ICD Codes: K55.9 - Vascular disorder of intestine, unspecified SNOMED: 96996358 (6) Post-operative infection ICD Codes: T81.40XA - Infection following a procedure, unspecified, initial encounter SNOMED: 40238099, 617159688 Status: unchanged Status Narrative Discussed with Dr. Nice Assessment/Plan Assessment - ischemic colitis - s/p partial colectomy - s/p nephrectomy - ESRD/HD - HTN Recommendations - post op care - wean / extubate - follow labs - feeds when OK with surgery - f/u path The patient was seen and examined at bedside and all new and available data was reviewed in the patients chart. I agree with the above findings, impression and plan. (Patient seen earlier today. Signature stamp does not reflect patient encounter time.). - Gianni Nice MD Subjective Subjective Limited Objective Last 24 Hour Vital Signs Date Time Temp Pulse Resp B/P (MAP) Pulse Ox O2 Delivery O2 Flow Rate FiO2 01/01/19 09:39 Venturi Mask 10.0 40 01/01/19 09:39 100 Venturi Mask 10.0 40 01/01/19 09:00 Room Air 01/01/19 05:20 179/55 01/01/19 04:00 99.0 64 18 179/55 (96) 98 01/01/19 00:14 178/56 01/01/19 00:00 98.1 71 18 172/56 (94) 95 12/31/18 20:00 98.4 62 20 178/57 (97) 98 12/31/18 20:00 Nasal Cannula 3.0 12/31/18 18:34 170/50 12/31/18 16:05 60 167/49 12/31/18 16:00 Venturi Mask 10.0 Venturi Mask 10.0 12/31/18 16:00 98.7 60 25 167/49 (88) 100 12/31/18 16:00 62 12/31/18 15:00 60 25 171/57 (95) 100 12/31/18 14:00 60 22 172/48 (89) 100 12/31/18 13:00 60 16 179/46 (90) 99 Intake and Output 12/31/18 01/01/19 19:00 07:00 Intake Total 50 ml 450 ml Output Total 495 ml 750 ml Balance -445 ml -300 ml IV Total 50 ml 450 ml Output Urine Total 455 ml 700 ml Drainage Total 40 ml 50 ml Laboratory Tests Test 01/01/19 05:57 White Blood Count 7.8 K/UL (4.8-10.8) Red Blood Count 2.51 M/UL (4.20-5.40) L Hemoglobin 7.2 G/DL (12.0-16.0) L Hematocrit 23.2 % (37.0-47.0) L Mean Corpuscular Volume 93 FL (80-99) Mean Corpuscular Hemoglobin 28.6 PG (27.0-31.0) Mean Corpuscular Hemoglobin Concent 30.8 G/DL (32.0-36.0) L Red Cell Distribution Width 15.3 % (11.6-14.8) H Platelet Count 178 K/UL (150-450) Mean Platelet Volume 7.5 FL (6.5-10.1) Neutrophils (%) (Auto) % (45.0-75.0) Lymphocytes (%) (Auto) % (20.0-45.0) Monocytes (%) (Auto) % (1.0-10.0) Eosinophils (%) (Auto) % (0.0-3.0) Basophils (%) (Auto) % (0.0-2.0) Differential Total Cells Counted 100 Neutrophils % (Manual) 63 % (45-75) Lymphocytes % (Manual) 23 % (20-45) Monocytes % (Manual) 4 % (1-10) Eosinophils % (Manual) 10 % (0-3) H Basophils % (Manual) 0 % (0-2) Band Neutrophils 0 % (0-8) Platelet Estimate Adequate Platelet Morphology Normal Anisocytosis 1+ Sodium Level 145 MMOL/L (136-145) Potassium Level 3.7 MMOL/L (3.5-5.1) Chloride Level 106 MMOL/L (98-107) Carbon Dioxide Level 25 MMOL/L (21-32) Anion Gap 14 mmol/L (5-15) Blood Urea Nitrogen 40 mg/dL (7-18) H Creatinine 4.9 MG/DL (0.55-1.30) H Estimat Glomerular Filtration Rate mL/min (>60) Glucose Level 205 MG/DL (74-106) H Calcium Level 7.5 MG/DL (8.5-10.1) L Height (Feet): 5 Height (Inches): 5.00 Weight (Pounds): 124 General Appearance: WD/WN, no apparent distress, alert Cardiovascular: normal rate Respiratory/Chest: normal breath sounds, no respiratory distress Abdominal Exam: normal bowel sounds, non tender, soft Extremities: non-tender Emiliana Garibay NP Jan 01, 2019 12:30
--- NOTE | 2019-01-01 13:35 | General Progress Note ---
Progress Note Progress Note leukocytosis resolved exam benign drain output minimal serous passing flatus. no bm no n/v/f/c npo iv fluids iv abx Tyrese Price Jan 01, 2019 13:35
[2019-01-01] MEDS: D5NS 1,000 ML IV SCH (14:00)
--- NOTE | 2019-01-01 14:10 | Nephrology Progress Note ---
Assessment/Plan Problem List: (1) ESRD (end stage renal disease) on dialysis (2) Ischemic colon Assessment: S/P colectomy (3) Anemia Assessment: better (4) DM (diabetes mellitus) (5) HTN (hypertension) Plan HD tomorrow cont Epogen abxs follow labs Discussed with HD RN Subjective Subjective in NAD Objective Objective Last 24 Hour Vital Signs Date Time Temp Pulse Resp B/P (MAP) Pulse Ox O2 Delivery O2 Flow Rate FiO2 01/01/19 09:39 Venturi Mask 10.0 40 01/01/19 09:39 100 Venturi Mask 10.0 40 01/01/19 09:00 Room Air 01/01/19 05:20 179/55 01/01/19 04:00 99.0 64 18 179/55 (96) 98 01/01/19 00:14 178/56 01/01/19 00:00 98.1 71 18 172/56 (94) 95 12/31/18 20:00 98.4 62 20 178/57 (97) 98 12/31/18 20:00 Nasal Cannula 3.0 12/31/18 18:34 170/50 12/31/18 16:05 60 167/49 12/31/18 16:00 Venturi Mask 10.0 Venturi Mask 10.0 12/31/18 16:00 98.7 60 25 167/49 (88) 100 12/31/18 16:00 62 12/31/18 15:00 60 25 171/57 (95) 100 Intake and Output 12/31/18 01/01/19 19:00 07:00 Intake Total 50 ml 450 ml Output Total 495 ml 750 ml Balance -445 ml -300 ml IV Total 50 ml 450 ml Output Urine Total 455 ml 700 ml Drainage Total 40 ml 50 ml Laboratory Tests 01/01/19 05:57: White Blood Count 7.8, Red Blood Count 2.51L, Hemoglobin 7.2L, Hematocrit 23.2L , Mean Corpuscular Volume 93, Mean Corpuscular Hemoglobin 28.6, Mean Corpuscular Hemoglobin Concent 30.8L, Red Cell Distribution Width 15.3H, Platelet Count 178, Mean Platelet Volume 7.5, Neutrophils (%) (Auto) , Lymphocytes (%) (Auto) , Monocytes (%) (Auto) , Eosinophils (%) (Auto) , Basophils (%) (Auto) , Differential Total Cells Counted 100, Neutrophils % ( Manual) 63, Lymphocytes % (Manual) 23, Monocytes % (Manual) 4, Eosinophils % ( Manual) 10H, Basophils % (Manual) 0, Band Neutrophils 0, Platelet Estimate Adequate, Platelet Morphology Normal, Anisocytosis 1+, Sodium Level 145, Potassium Level 3.7, Chloride Level 106, Carbon Dioxide Level 25, Anion Gap 14, Blood Urea Nitrogen 40H, Creatinine 4.9H, Estimat Glomerular Filtration Rate , Glucose Level 205H, Calcium Level 7.5L Height (Feet): 5 Height (Inches): 5.00 Weight (Pounds): 124 Cardiovascular: normal rate Respiratory/Chest: lungs clear Extremities: pitting, other - no edema Modesto Romero MD Jan 01, 2019 14:10
--- NOTE | 2019-01-01 15:11 | Infectious Diseases Prog Note ---
Assessment/Plan Assessment/Plan ASSESSMENT AND PLAN: 1. sepsis, ischemic colitis, hematoma/fluid collection, ? aspiration pna/hcap vs atx, leukocytosis, fevers - zosyn for now, discontinue vancomycin since no evidence of mrsa infection - monitor labs, monitor chest x-ray, cultures negative to date - clinically improved - continue tx per primary, surgery and consultants 2. The patient has end-stage renal disease, on hemodialysis. 3. The patient is status post right nephrectomy for renal ca per hx 4. Anemia. 5. Renal carcinoma requiring right nephrectomy. 6. Urology followup. 7. Hypertension. 8. Hyperlipidemia. 9. Congestive heart failure. 10. Diastolic dysfunction. 11. End-stage renal disease, on hemodialysis and dialysis line. 12. Sick sinus syndrome. 13. Pacemaker. 14. WILLIAMS. 15. Diabetes. 16. Hypertension. 17. Diabetes and hypertension, treatment per primary . 18. Dyslipidemia. 19. Continue treatment per primary consultants. 20. Notes and records were noted. 21. Orders were entered. 22. Family history is noncontributory. 23. Social history is negative. 24. MAR was noted. 25. Case was discussed with RN. 26. Allergies to sulfa drugs. Subjective Constitutional: Denies: fever HEENT: Denies: congestion Respiratory: Denies: shortness of breath Cardiovascular: Denies: chest pain Gastrointestinal/Abdominal: Denies: nausea, vomiting, diarrhea Genitourinary: Reports: other - + robledo Neurologic: Denies: headache Psychiatric: Denies: depression Skin: Denies: rash Hematologic: Denies: bleeding Musculoskeletal: Denies: pain Allergies: Coded Allergies: SULFA (SULFONAMIDE ANTIBIOTICS) (Verified Allergy, Unknown, 11/21/14) COPIED FROM UNCODED SECTION Objective Vital Signs Last 24 Hour Vital Signs Date Time Temp Pulse Resp B/P (MAP) Pulse Ox O2 Delivery O2 Flow Rate FiO2 01/01/19 09:39 Venturi Mask 10.0 40 01/01/19 09:39 100 Venturi Mask 10.0 40 01/01/19 09:00 Room Air 01/01/19 05:20 179/55 01/01/19 04:00 99.0 64 18 179/55 (96) 98 01/01/19 00:14 178/56 01/01/19 00:00 98.1 71 18 172/56 (94) 95 12/31/18 20:00 98.4 62 20 178/57 (97) 98 12/31/18 20:00 Nasal Cannula 3.0 12/31/18 18:34 170/50 12/31/18 16:05 60 167/49 12/31/18 16:00 Venturi Mask 10.0 Venturi Mask 10.0 12/31/18 16:00 98.7 60 25 167/49 (88) 100 12/31/18 16:00 62 12/31/18 15:00 60 25 171/57 (95) 100 Height (Feet): 5 Height (Inches): 5.00 Weight (Pounds): 124 General Appearance: no acute distress HEENT: normocephalic, atraumatic, anicteric, EOMI, pharynx normal, supple, no JVD Respiratory/Chest: no accessory muscle use, decreased breath sounds, crackles/ rales, rhonchi - bilaterally Cardiovascular: normal rate, regular rhythm, no gallop/murmur, no JVD Abdomen: normal bowel sounds, soft, non tender, no organomegaly, non distended Genitourinary: other - + robledo - urine clear Extremities: no cyanosis Skin: no rash Neurologic/Psychiatric: hand wrapper operator II-XII grossly normal, alert, responsive Lymphatic: no neck adenopathy Musculoskeletal: no effusion Objective Chest x-ray - Chest x-ray - 12/30/18 IMPRESSION: 1. Left lung base atelectasis/airspace disease and/or small pleural effusion, stable from prior study. 2. Tiny amount of free air under the right hemidiaphragm is improved from prior study. CT abdomen and pelvis: IMPRESSION: Portal venous gas and pneumatosis in the right hemicolon. Bowel ischemia not excluded. Status post right nephrectomy with right retroperitoneal fluid collection and a right anterolateral wall fluid collection likely postsurgical in nature. These may represent liquefied hematomas, seromas, or infected fluid such as abscess. Correlate clinically. Atherosclerotic vascular disease Cystic foci within the pelvis likely of ovarian origin as described above Moderate fecal retention. Degenerative changes of the spine. [facility] has communicated the preliminary results to the Emergency Department. Their findings are largely concordant with this report. Microbiology Date/Time Source Procedure Growth Status 12/28/18 20:38 Blood Blood Culture - Preliminary NO GROWTH AFTER 72 HOURS Resulted 12/31/18 06:15 Sputum Induced Gram Stain - Final Resulted 12/31/18 06:15 Sputum Induced Sputum Culture - Preliminary NORMAL UPPER RESPIRATORY CINDI AT 24 ... Resulted 12/28/18 09:30 Stool Clostridium difficile Toxin Assay - Final Complete 12/29/18 11:00 Abdominal Fluid Gram Stain - Final Resulted 12/29/18 11:00 Abdominal Fluid Aerobic Culture - Preliminary NO GROWTH AFTER 72 HOURS Resulted 12/29/18 11:00 Abdominal Fluid Anaerobic Culture - Preliminary NO GROWTH AFTER 72 HOURS Resulted Microbiology Date/Time Source Procedure Growth Status 12/31/18 06:15 Sputum Induced Gram Stain - Final Resulted 12/31/18 06:15 Sputum Induced Sputum Culture - Preliminary NORMAL UPPER RESPIRATORY CINDI AT 24 ... Resulted 12/30/18 05:00 Sputum Gram Stain - Final Complete 12/30/18 05:00 Sputum Sputum Culture - Final NO GROWTH AFTER 48 HOURS Complete Laboratory Tests Test 01/01/19 05:57 White Blood Count 7.8 K/UL (4.8-10.8) Red Blood Count 2.51 M/UL (4.20-5.40) L Hemoglobin 7.2 G/DL (12.0-16.0) L Hematocrit 23.2 % (37.0-47.0) L Mean Corpuscular Volume 93 FL (80-99) Mean Corpuscular Hemoglobin 28.6 PG (27.0-31.0) Mean Corpuscular Hemoglobin Concent 30.8 G/DL (32.0-36.0) L Red Cell Distribution Width 15.3 % (11.6-14.8) H Platelet Count 178 K/UL (150-450) Mean Platelet Volume 7.5 FL (6.5-10.1) Neutrophils (%) (Auto) % (45.0-75.0) Lymphocytes (%) (Auto) % (20.0-45.0) Monocytes (%) (Auto) % (1.0-10.0) Eosinophils (%) (Auto) % (0.0-3.0) Basophils (%) (Auto) % (0.0-2.0) Differential Total Cells Counted 100 Neutrophils % (Manual) 63 % (45-75) Lymphocytes % (Manual) 23 % (20-45) Monocytes % (Manual) 4 % (1-10) Eosinophils % (Manual) 10 % (0-3) H Basophils % (Manual) 0 % (0-2) Band Neutrophils 0 % (0-8) Platelet Estimate Adequate Platelet Morphology Normal Anisocytosis 1+ Sodium Level 145 MMOL/L (136-145) Potassium Level 3.7 MMOL/L (3.5-5.1) Chloride Level 106 MMOL/L (98-107) Carbon Dioxide Level 25 MMOL/L (21-32) Anion Gap 14 mmol/L (5-15) Blood Urea Nitrogen 40 mg/dL (7-18) H Creatinine 4.9 MG/DL (0.55-1.30) H Estimat Glomerular Filtration Rate mL/min (>60) Glucose Level 205 MG/DL (74-106) H Calcium Level 7.5 MG/DL (8.5-10.1) L Current Medications Medications (Trade) Dose Ordered Sig/Kranthi Route PRN Reason Start Time Stop Time Status Last Admin Dose Admin Dextrose (Dextrose 50%) 25 ml Q30M PRN IV Hypoglycemia 12/31/18 17:45 01/26/19 22:44 Dextrose (Dextrose 50%) 50 ml Q30M PRN IV Hypoglycemia 12/31/18 17:45 01/26/19 22:44 Dextrose/Sodium Chloride 1,000 ml @ 50 mls/hr Q20H IV 12/31/18 18:00 01/28/19 17:59 12/31/18 18:02 Enalaprilat (Vasotec) 2.5 mg EVERY 6 HOURS IV 12/31/18 18:00 01/30/19 17:59 01/01/19 05:20 Epoetin Skinny (Epoetin Skinny(ESRD on dialysis)) 2,000 unit TUE-TUE-TUE SUBQ 01/01/19 21:00 01/31/19 20:59 Epoetin Skinny (Epoetin Skinny(ESRD on dialysis)) 3,000 unit TUE-TUE-TUE SUBQ 01/01/19 21:00 01/31/19 20:59 Heparin Sodium (Porcine) (Heparin Sod 1000 units/ml 10ml) 500 unit ONCE PRN IV FOR HD USE ONLY 01/01/19 12:00 01/02/19 23:59 Morphine Sulfate (Morphine Sulfate) 2 mg Q2H PRN IVP For Pain 12/31/18 18:00 01/05/19 17:59 01/01/19 05:20 Ondansetron HCl (Zofran) 4 mg Q6H PRN IVP Nausea & Vomiting 12/31/18 17:30 01/26/19 17:29 Piperacillin Sod/ Tazobactam Sod 2.25 gm/Dextrose 55 ml @ 110 mls/hr Q8HR IV 12/31/18 22:00 01/03/19 05:59 01/01/19 05:20 Sodium Chloride 1,000 ml @ 500 mls/hr Q2H PRN IVLG sbp<90 during hd 01/01/19 12:00 01/02/19 23:59 Vancomycin HCl (Vanco rx to dose) 1 ea DAILY PRN MISC Per rx protocol 12/31/18 17:30 01/30/19 17:29 Vitamin B Complex/ Vit C/Folic Acid (Nephrovite) 1 tab DAILY ORAL 01/01/19 09:00 01/27/19 13:14 01/01/19 10:34 Ignacia Bills MD Jan 01, 2019 15:11
--- NOTE | 2019-01-01 15:41 | Pulmonolgy Critical Care Note ---
Critical Care - Asmt/Plan Assessment/Plan: Pulmonary Progress Note HPI This patient is sp R Colectomy, currently remains intubated, recently underwent a nephrectomy for large right kidney cancer. She subsequently has started dialysis for the past 2 weeks. She was at dialysis today when she felt pain in her abdomen. She also felt gassy. She denies nausea or vomiting. She denies fever or chills. She denies chest pain or shortness of breath. S/p Extubation , doing well Allergies: Coded Allergies: SULFA (SULFONAMIDE ANTIBIOTICS) (Verified Allergy, Unknown, 11/21/14) COPIED FROM UNCODED SECTION Patient History Past Medical History: R Kidney Cancer, DM, HTN, HLP Past Surgical History: R Colectomy, R Nephrectomy 1 week ago. Review of Systems All Other Systems: negative except mentioned in HPI Physical Exam Vital Signs Noted General Appearance: no apparent distress, alert, intubated, non-toxic Head: normocephalic, atraumatic Eyes: bilateral eye normal inspection, bilateral eye PERRL ENT: hearing grossly normal, normal pharynx, no angioedema, normal voice Neck: full range of motion, supple/symm/no masses Respiratory: chest non-tender, lungs clear, normal breath sounds, no respiratory distress, no retraction, no accessory muscle use, speaking full sentences Cardiovascular #1: regular rate, rhythm, no edema Gastrointestinal: normal bowel sounds, soft, non-distended, no guarding, no rebound, tenderness - Mild ttp in epigastrium, post operative changes Rectal: deferred Musculoskeletal: back normal, gait/station normal, normal range of motion, non- tender Neurologic: alert, o, responsive, motor strength/tone normal, sensory intact, speech normal Psychiatric: judgement/insight normal, memory normal, mood/affect normal, no suicidal/homicidal ideation Skin: normal color, no rash, warm/dry, well hydrated Impression: Primary Impression: Ischemic Colitis, s/p Colectomy Retroperitoneal Collection Hypertension DM HL Plan Triflo AB's PPX R[employer] CUSTODIAN meds IVF Laboratory Tests and XR noted Test 12/27/18 17:32 12/27/18 17:35 Urine Color Yellow Urine Appearance Clear Urine pH 9 (4.5-8.0) Urine Specific [place] 1.015 (1.005-1.035) Urine Protein 3+ (NEGATIVE) H Urine Glucose (UA) Negative (NEGATIVE) Urine Ketones Negative (NEGATIVE) Urine Blood 2+ (NEGATIVE) H Urine Nitrite Negative (NEGATIVE) Urine Bilirubin Negative (NEGATIVE) Urine Urobilinogen Normal MG/DL (0.0-1.0) Urine Leukocyte Esterase Negative (NEGATIVE) Urine RBC 0-2 /HPF (0 - 2) Urine WBC 0-2 /HPF (0 - 2) Urine Squamous Epithelial Cells Occasional /LPF Urine Bacteria None /HPF (NONE) White Blood Count 13.9 K/UL (4.8-10.8) H Red Blood Count 3.30 M/UL (4.20-5.40) L Hemoglobin 9.6 G/DL (12.0-16.0) L Hematocrit 29.3 % (37.0-47.0) L Mean Corpuscular Volume 89 FL (80-99) Mean Corpuscular Hemoglobin 29.1 PG (27.0-31.0) Mean Corpuscular Hemoglobin Concent 32.8 G/DL (32.0-36.0) Red Cell Distribution Width 15.6 % (11.6-14.8) H Platelet Count 271 K/UL (150-450) Mean Platelet Volume 6.5 FL (6.5-10.1) Neutrophils (%) (Auto) 80.9 % (45.0-75.0) H Lymphocytes (%) (Auto) 9.4 % (20.0-45.0) L Monocytes (%) (Auto) 5.5 % (1.0-10.0) Eosinophils (%) (Auto) 3.7 % (0.0-3.0) H Basophils (%) (Auto) 0.5 % (0.0-2.0) Sodium Level 139 MMOL/L (136-145) Potassium Level 3.9 MMOL/L (3.5-5.1) Chloride Level 101 MMOL/L (98-107) Carbon Dioxide Level 31 MMOL/L (21-32) Anion Gap 7 mmol/L (5-15) Blood Urea Nitrogen 29 mg/dL (7-18) H Creatinine 2.9 MG/DL (0.55-1.30) H Estimate Glomerular Filtration Rate mL/min (>60) Glucose Level 83 MG/DL (74-106) Calcium Level 8.6 MG/DL (8.5-10.1) Total Bilirubin 0.5 MG/DL (0.2-1.0) Aspartate Amino Transferase (AST) 39 U/L (15-37) H Alanine Aminotransferase (ALT) 22 U/L (12-78) Alkaline Phosphatase 89 U/L (46-116) Total Protein 7.8 G/DL (6.4-8.2) Albumin 2.8 G/DL (3.4-5.0) L Globulin 5.0 g/dL Albumin/Globulin Ratio 0.6 (1.0-2.7) L Lipase 529 U/L (73-393) H CT abd/pelvis Impression Multiple postoperative findings and some other findings that could be postoperative infection. Critical Care - Objective Last 24 Hour Vital Signs Date Time Temp Pulse Resp B/P (MAP) Pulse Ox O2 Delivery O2 Flow Rate FiO2 01/01/19 09:39 Venturi Mask 10.0 40 01/01/19 09:39 100 Venturi Mask 10.0 40 01/01/19 09:00 Room Air 01/01/19 05:20 179/55 01/01/19 04:00 99.0 64 18 179/55 (96) 98 01/01/19 00:14 178/56 01/01/19 00:00 98.1 71 18 172/56 (94) 95 12/31/18 20:00 98.4 62 20 178/57 (97) 98 12/31/18 20:00 Nasal Cannula 3.0 12/31/18 18:34 170/50 12/31/18 16:05 60 167/49 12/31/18 16:00 Venturi Mask 10.0 Venturi Mask 10.0 12/31/18 16:00 98.7 60 25 167/49 (88) 100 12/31/18 16:00 62 Micro: Microbiology Date/Time Source Procedure Growth Status 12/31/18 06:15 Sputum Induced Gram Stain - Final Resulted 12/31/18 06:15 Sputum Induced Sputum Culture - Preliminary NORMAL UPPER RESPIRATORY CINDI AT 24 ... Resulted 12/30/18 05:00 Sputum Gram Stain - Final Complete 12/30/18 05:00 Sputum Sputum Culture - Final NO GROWTH AFTER 48 HOURS Complete Critical Care - Subjective ROS Limited/Unobtainable: No FI02: 40 Vent Support Breath Rate: 10 Vent Support Mode: AC Vent Tidal Volume: 500 Sputum Amount: None PEEP: 0.0 PIP: 14 I&O: Intake and Output 12/31/18 01/01/19 19:00 07:00 Intake Total 50 ml 450 ml Output Total 495 ml 750 ml Balance -445 ml -300 ml IV Total 50 ml 450 ml Output Urine Total 455 ml 700 ml Drainage Total 40 ml 50 ml ET-Tube: 8.0 ET Position: 23 Oj Gramajo MD Jan 01, 2019 15:41
[2019-01-01] MEDS ORDERED: HydrALAZINE 25mg tab ORAL PRN ×3 (17:45→18:15)
--- NOTE | 2019-01-01 18:59 | Internal Med Progress Note ---
Subjective Physician Name Oj Turcios Attending Physician Oj Turcios MD Current Medications Medications (Trade) Dose Ordered Sig/Kranthi Route PRN Reason Start Time Stop Time Status Last Admin Dose Admin Amlodipine Besylate (Norvasc) 5 mg DAILY ORAL 01/01/19 16:00 01/31/19 15:59 Dextrose (Dextrose 50%) 25 ml Q30M PRN IV Hypoglycemia 12/31/18 17:45 01/26/19 22:44 Dextrose (Dextrose 50%) 50 ml Q30M PRN IV Hypoglycemia 12/31/18 17:45 01/26/19 22:44 Epoetin Skinny (Epoetin Skinny(ESRD on dialysis)) 2,000 unit TUE-TUE-TUE SUBQ 01/01/19 21:00 01/31/19 20:59 Epoetin Skinny (Epoetin Skinny(ESRD on dialysis)) 3,000 unit TUE- SUBQ 01/01/19 21:00 01/31/19 20:59 Heparin Sodium (Porcine) (Heparin Sod 1000 units/ml 10ml) 500 unit ONCE PRN IV FOR HD USE ONLY 01/01/19 12:00 01/02/19 23:59 Hydralazine HCl (Apresoline) 25 mg Q4H PRN ORAL For High Blood Pressure 01/01/19 18:15 01/31/19 18:14 Morphine Sulfate (Morphine Sulfate) 2 mg Q2H PRN IVP For Pain 12/31/18 18:00 01/05/19 17:59 01/01/19 05:20 Ondansetron HCl (Zofran) 4 mg Q6H PRN IVP Nausea & Vomiting 12/31/18 17:30 01/26/19 17:29 Piperacillin Sod/ Tazobactam Sod 2.25 gm/Dextrose 55 ml @ 110 mls/hr Q8HR IV 01/01/19 22:00 01/04/19 05:59 Sodium Chloride 1,000 ml @ 500 mls/hr Q2H PRN IVLG sbp<90 during hd 01/01/19 12:00 01/02/19 23:59 Vitamin B Complex/ Vit C/Folic Acid (Nephrovite) 1 tab DAILY ORAL 01/01/19 09:00 01/27/19 13:14 01/01/19 10:34 Allergies: Coded Allergies: SULFA (SULFONAMIDE ANTIBIOTICS) (Verified Allergy, Unknown, 11/21/14) COPIED FROM UNCODED SECTION Subjective awake NPO had a bowel movement and passing gas no CP or SOB no abd pain 12 pt ROS neg except above positives Objective Last Vital Signs Date Time Temp Pulse Resp B/P (MAP) Pulse Ox O2 Delivery O2 Flow Rate FiO2 01/01/19 09:39 Venturi Mask 10.0 40 01/01/19 09:39 100 01/01/19 05:20 179/55 01/01/19 04:00 99.0 64 18 Laboratory Tests Test 01/01/19 05:57 01/01/19 17:55 White Blood Count 7.8 K/UL (4.8-10.8) Red Blood Count 2.51 M/UL (4.20-5.40) L Hemoglobin 7.2 G/DL (12.0-16.0) L Hematocrit 23.2 % (37.0-47.0) L Mean Corpuscular Volume 93 FL (80-99) Mean Corpuscular Hemoglobin 28.6 PG (27.0-31.0) Mean Corpuscular Hemoglobin Concent 30.8 G/DL (32.0-36.0) L Red Cell Distribution Width 15.3 % (11.6-14.8) H Platelet Count 178 K/UL (150-450) Mean Platelet Volume 7.5 FL (6.5-10.1) Neutrophils (%) (Auto) % (45.0-75.0) Lymphocytes (%) (Auto) % (20.0-45.0) Monocytes (%) (Auto) % (1.0-10.0) Eosinophils (%) (Auto) % (0.0-3.0) Basophils (%) (Auto) % (0.0-2.0) Differential Total Cells Counted 100 Neutrophils % (Manual) 63 % (45-75) Lymphocytes % (Manual) 23 % (20-45) Monocytes % (Manual) 4 % (1-10) Eosinophils % (Manual) 10 % (0-3) H Basophils % (Manual) 0 % (0-2) Band Neutrophils 0 % (0-8) Platelet Estimate Adequate Platelet Morphology Normal Anisocytosis 1+ Sodium Level 145 MMOL/L (136-145) Potassium Level 3.7 MMOL/L (3.5-5.1) Chloride Level 106 MMOL/L (98-107) Carbon Dioxide Level 25 MMOL/L (21-32) Anion Gap 14 mmol/L (5-15) Blood Urea Nitrogen 40 mg/dL (7-18) H Creatinine 4.9 MG/DL (0.55-1.30) H Estimat Glomerular Filtration Rate mL/min (>60) Glucose Level 205 MG/DL (74-106) H Calcium Level 7.5 MG/DL (8.5-10.1) L Stool Occult Blood Pending Microbiology Date/Time Source Procedure Growth Status 12/31/18 06:15 Sputum Induced Gram Stain - Final Resulted 12/31/18 06:15 Sputum Induced Sputum Culture - Preliminary NORMAL UPPER RESPIRATORY CINDI AT 24 ... Resulted 12/30/18 05:00 Sputum Gram Stain - Final Complete 12/30/18 05:00 Sputum Sputum Culture - Final NO GROWTH AFTER 48 HOURS Complete Intake and Output 12/31/18 01/01/19 19:00 07:00 Intake Total 50 ml 450 ml Output Total 495 ml 750 ml Balance -445 ml -300 ml IV Total 50 ml 450 ml Output Urine Total 455 ml 700 ml Drainage Total 40 ml 50 ml Objective gen - NAD. awake. HEENT - NC/AT. CVS - RRR. Nl s1,2 Lungs - CTA b/l Abd - covered with dressing. c/d/i. R LULA drain Ext - no c/c/e Assessment/Plan Assessment/Plan ASSESSMENT: 1. Ischemic bowel s/p diagnostic laparoscopy, exploratory laparotomy, right colectomy, drainage of abdominal wall fluid collection, evacuation of retroperitoneal hematoma (12/29) 2. Elevated lipase-may be falsely elevated lipase given the patient is not very tender over epigastric region versus acute pancreatitis. 3. Abdominal pain possibly also related to postsurgical abdominal infection. 4. End-stage renal disease, on hemodialysis. 5. Recent right kidney nephrectomy for renal cell carcinoma. 6. Diabetes. 7. Hypertension. 8. Hyperlipidemia. 9. pneumatosis which may be related to infectious colitis vs ischemic bowel PLAN: 1. Medsurg 2. IVF - D5NS @ 50cc/hr 3. Antibiotics, Zosyn and Vanco IV 4. ID recs appreciated 5. Surgery recs appreciated; 6. Nephrology consulted for hemodialysis orders. 7. NPO. 8. Morphine 2mg IV Q 2hrs prn pain 9. start amlodipine 5mg PO Q day DVT prophylaxis, SCDs. 9. Full Code. Oj Turcios MD Jan 01, 2019 18:59
[2019-01-01 20:00] VITALS: BP 156/57
[2019-01-01] MEDS: TraZODone 50mg tab ORAL SCH (20:33)
[2019-01-01] MEDS: Epoetin Alfa(ESRD on dialysis)3000 units/ml vial SUBQ SCH (20:53)
[2019-01-01] MEDS: EPOETIN ALFA 2000 UNIT/ML SUBQ SCH (20:53)
[2019-01-01] MEDS ORDERED: EPOETIN ALFA 2000 UNIT/ML SUBQ SCH (21:00)
[2019-01-01] MEDS ORDERED: Epoetin Alfa(ESRD on dialysis)3000 units/ml vial SUBQ SCH (21:00)
[2019-01-02] VITALS: BP 147/61
[2019-01-02 04:00] VITALS: BP 148/62
[2019-01-02] MEDS: Piperacillin/Tazobactam 2.25 GM in D5W 55 ML IV SCH ×3 (05:17→21:45)
[2019-01-02 07:14] LABS: BASOPHILS % (AUTO) 1.1 % (0.0-2.0); EOSINOPHILS % (AUTO) 8.9 % (0.0-3.0); HEMATOCRIT 25.2 % (37.0-47.0); LYMPHOCYTES % (AUTO) 17.4 % (20.0-45.0); MEAN CORPUSCULAR VOLUME 90 FL (80-99); MONOCYTES % (AUTO) 8.3 % (1.0-10.0); NEUTROPHILS % (AUTO) 64.4 % (45.0-75.0); PLATELET COUNT 205 K/UL (150-450); RED BLOOD COUNT 2.79 M/UL (4.20-5.40); RED CELL DISTRIBUTION WIDTH 15.4 % (11.6-14.8); WHITE BLOOD COUNT 8.3 K/UL (4.8-10.8)
[2019-01-02 08:00] VITALS: BP 157/70
[2019-01-02 08:06] LABS: ANION GAP 16 mmol/L (5-15); BLOOD UREA NITROGEN 47 mg/dL (7-18); CALCIUM 7.8 MG/DL (8.5-10.1); CARBON DIOXIDE 22 MMOL/L (21-32); CHLORIDE 107 MMOL/L (98-107); CREATININE 5.3 MG/DL (0.55-1.30); POTASSIUM 3.5 MMOL/L (3.5-5.1); SODIUM 145 MMOL/L (136-145)
[2019-01-02] MEDS: Nephrovite tab (Rena-Vite) ORAL SCH (08:56)
--- NOTE | 2019-01-02 10:00 | Urology Progress Note ---
Assessment/Plan Assessment/Plan 1. Abdominal pain hx. 2. Status post recent right nephrectomy, presumably for renal cell carcinoma. 3. Chronic kidney disease. 4. Proteinuria. 5. Urinary frequency history. 6. Rule out neurogenic bladder. 7. Hematuria. 8. POD # 4 ,exp lap monitor clinically hematoma in right renal fossa and abdominal wall evacuated abx as ordered HD per nephrology removal of LULA drain per Dr. Price f/u on blood cx Subjective Allergies: Coded Allergies: SULFA (SULFONAMIDE ANTIBIOTICS) (Verified Allergy, Unknown, 11/21/14) COPIED FROM UNCODED SECTION Subjective all noted, s/p exp lap and colectomy 12/29 right flank LULA drain, minimal output robledo removed Objective Last 24 Hour Vital Signs Date Time Temp Pulse Resp B/P (MAP) Pulse Ox O2 Delivery O2 Flow Rate FiO2 01/02/19 08:57 70 157/67 01/02/19 04:00 99.1 70 16 148/62 (90) 95 01/02/19 00:00 98.9 63 17 147/61 (89) 93 01/01/19 21:00 Room Air 01/01/19 20:00 98.7 68 17 156/57 (90) 93 01/01/19 16:00 78 172/60 Intake and Output 01/01/19 01/02/19 19:00 07:00 Output Total 800 ml 865 ml Balance -800 ml -865 ml Output Urine Total 800 ml 800 ml Drainage Total 65 ml # Bowel Movements 1 1 Microbiology Date/Time Source Procedure Growth Status 12/28/18 20:38 Blood Blood Culture - Preliminary NO GROWTH AFTER 4 DAYS Resulted 12/31/18 06:15 Sputum Induced Gram Stain - Final Complete 12/31/18 06:15 Sputum Induced Sputum Culture - Final NORMAL UPPER RESPIRATORY CINDI PRESENT Complete 12/28/18 09:30 Stool Clostridium difficile Toxin Assay - Final Complete 12/29/18 11:00 Abdominal Fluid Gram Stain - Final Complete 12/29/18 11:00 Abdominal Fluid Aerobic Culture - Final NO GROWTH Complete 12/29/18 11:00 Abdominal Fluid Anaerobic Culture - Final NO GROWTH Complete Current Medications Medications (Trade) Dose Ordered Sig/Kranthi Route PRN Reason Start Time Stop Time Status Last Admin Dose Admin Amlodipine Besylate (Norvasc) 5 mg DAILY ORAL 01/01/19 16:00 01/31/19 15:59 01/02/19 08:57 Dextrose (Dextrose 50%) 25 ml Q30M PRN IV Hypoglycemia 12/31/18 17:45 01/26/19 22:44 Dextrose (Dextrose 50%) 50 ml Q30M PRN IV Hypoglycemia 12/31/18 17:45 01/26/19 22:44 Epoetin Skinny (Epoetin Skinny(ESRD on dialysis)) 2,000 unit SUBQ 01/01/19 21:00 01/31/19 20:59 01/01/19 20:53 Epoetin Skinny (Epoetin Skinny(ESRD on dialysis)) 3,000 unit SUBQ 01/01/19 21:00 01/31/19 20:59 01/01/19 20:53 Heparin Sodium (Porcine) (Heparin Sod 1000 units/ml 10ml) 500 unit ONCE PRN IV FOR HD USE ONLY 01/01/19 12:00 01/02/19 23:59 Hydralazine HCl (Apresoline) 25 mg Q4H PRN ORAL For High Blood Pressure 01/01/19 18:15 01/31/19 18:14 Morphine Sulfate (Morphine Sulfate) 2 mg Q2H PRN IVP For Pain 12/31/18 18:00 01/05/19 17:59 01/01/19 05:20 Ondansetron HCl (Zofran) 4 mg Q6H PRN IVP Nausea & Vomiting 12/31/18 17:30 01/26/19 17:29 Piperacillin Sod/ Tazobactam Sod 2.25 gm/Dextrose 55 ml @ 110 mls/hr Q8HR IV 01/01/19 22:00 01/04/19 05:59 01/02/19 05:17 Sodium Chloride 1,000 ml @ 500 mls/hr Q2H PRN IVLG sbp<90 during hd 01/01/19 12:00 01/02/19 23:59 Trazodone HCl (Desyrel) 50 mg BEDTIME ORAL 01/01/19 21:00 01/31/19 20:59 01/01/19 20:33 Vitamin B Complex/ Vit C/Folic Acid (Nephrovite) 1 tab DAILY ORAL 01/01/19 09:00 01/27/19 13:14 01/02/19 08:56 Laboratory Tests 01/01/19 17:55: Stool Occult Blood [Pending] 01/02/19 06:21: White Blood Count 8.3, Red Blood Count 2.79L, Hemoglobin 8.0L, Hematocrit 25.2L , Mean Corpuscular Volume 90, Mean Corpuscular Hemoglobin 28.6, Mean Corpuscular Hemoglobin Concent 31.7L, Red Cell Distribution Width 15.4H, Platelet Count 205, Mean Platelet Volume 7.5, Neutrophils (%) (Auto) 64.4, Lymphocytes (%) (Auto) 17.4L, Monocytes (%) (Auto) 8.3, Eosinophils (%) (Auto) 8.9H, Basophils (%) (Auto) 1.1, Sodium Level 145, Potassium Level 3.5, Chloride Level 107, Carbon Dioxide Level 22, Anion Gap 16H, Blood Urea Nitrogen 47H, Creatinine 5.3H, Estimat Glomerular Filtration Rate , Glucose Level 186H, Calcium Level 7.8L Height (Feet): 5 Height (Inches): 5.00 Weight (Pounds): 123 Objective exam stable robledo indwelling, grossly yellow urine LULA drain in right flank CT noted Kvng Epperson MD Jan 02, 2019 10:00
--- NOTE | 2019-01-02 11:38 | GI Progress Note ---
Assessment/Plan Problems: (1) Ischemic colon ICD Codes: K55.9 - Vascular disorder of intestine, unspecified SNOMED: 98951226 (2) Diarrhea ICD Codes: R19.7 - Diarrhea, unspecified SNOMED: 24426872 (3) Anemia ICD Codes: D64.9 - Anemia, unspecified SNOMED: 070602371 (4) Pancreatitis ICD Codes: K85.90 - Acute pancreatitis without necrosis or infection, unspecified SNOMED: 12634192 (5) Ischemic colitis ICD Codes: K55.9 - Vascular disorder of intestine, unspecified SNOMED: 75078940 (6) Post-operative infection ICD Codes: T81.40XA - Infection following a procedure, unspecified, initial encounter SNOMED: 70601963, 863811951 Status: unchanged Status Narrative Discussed with Dr. Nice. Assessment/Plan Assessment - ischemic colitis - s/p partial colectomy - s/p nephrectomy - ESRD/HD - HTN Recommendations - post op care - wean / extubate - follow labs - feeds when OK with surgery - f/u path The patient was seen and examined at bedside and all new and available data was reviewed in the patients chart. I agree with the above findings, impression and plan. (Patient seen earlier today. Signature stamp does not reflect patient encounter time.). - Gianni Nice MD Subjective Subjective Limited Objective Last 24 Hour Vital Signs Date Time Temp Pulse Resp B/P (MAP) Pulse Ox O2 Delivery O2 Flow Rate FiO2 01/02/19 09:00 Room Air 01/02/19 08:57 70 157/67 01/02/19 08:00 99.5 74 19 157/70 (99) 01/02/19 04:00 99.1 70 16 148/62 (90) 95 01/02/19 00:00 98.9 63 17 147/61 (89) 93 01/01/19 21:00 Room Air 01/01/19 20:00 98.7 68 17 156/57 (90) 93 01/01/19 16:00 78 172/60 Intake and Output 01/01/19 01/02/19 19:00 07:00 Output Total 800 ml 865 ml Balance -800 ml -865 ml Output Urine Total 800 ml 800 ml Drainage Total 65 ml # Bowel Movements 1 1 Laboratory Tests Test 01/01/19 17:55 01/02/19 06:21 Stool Occult Blood Pending White Blood Count 8.3 K/UL (4.8-10.8) Red Blood Count 2.79 M/UL (4.20-5.40) L Hemoglobin 8.0 G/DL (12.0-16.0) L Hematocrit 25.2 % (37.0-47.0) L Mean Corpuscular Volume 90 FL (80-99) Mean Corpuscular Hemoglobin 28.6 PG (27.0-31.0) Mean Corpuscular Hemoglobin Concent 31.7 G/DL (32.0-36.0) L Red Cell Distribution Width 15.4 % (11.6-14.8) H Platelet Count 205 K/UL (150-450) Mean Platelet Volume 7.5 FL (6.5-10.1) Neutrophils (%) (Auto) 64.4 % (45.0-75.0) Lymphocytes (%) (Auto) 17.4 % (20.0-45.0) L Monocytes (%) (Auto) 8.3 % (1.0-10.0) Eosinophils (%) (Auto) 8.9 % (0.0-3.0) H Basophils (%) (Auto) 1.1 % (0.0-2.0) Sodium Level 145 MMOL/L (136-145) Potassium Level 3.5 MMOL/L (3.5-5.1) Chloride Level 107 MMOL/L (98-107) Carbon Dioxide Level 22 MMOL/L (21-32) Anion Gap 16 mmol/L (5-15) H Blood Urea Nitrogen 47 mg/dL (7-18) H Creatinine 5.3 MG/DL (0.55-1.30) H Estimat Glomerular Filtration Rate mL/min (>60) Glucose Level 186 MG/DL (74-106) H Calcium Level 7.8 MG/DL (8.5-10.1) L Height (Feet): 5 Height (Inches): 5.00 Weight (Pounds): 123 General Appearance: WD/WN, no apparent distress, alert Cardiovascular: normal rate Respiratory/Chest: normal breath sounds, no respiratory distress Abdominal Exam: normal bowel sounds, non tender, soft Extremities: normal range of motion, non-tender Emiliana Garibay BUSINESS PROCESS LEAD Jan 02, 2019 11:38
[2019-01-02 12:00] VITALS: BP 167/66
--- NOTE | 2019-01-02 12:48 | Nephrology Progress Note ---
Assessment/Plan Problem List: (1) ESRD (end stage renal disease) on dialysis (2) Ischemic colon Assessment: S/P colectomy (3) Anemia Assessment: better (4) DM (diabetes mellitus) (5) HTN (hypertension) Plan HD as tolerated cont Epogen abxs follow labs Discussed with HD RN Subjective Subjective Patient was seen during dialysis. Objective Objective Last 24 Hour Vital Signs Date Time Temp Pulse Resp B/P (MAP) Pulse Ox O2 Delivery O2 Flow Rate FiO2 01/02/19 09:00 Room Air 01/02/19 08:57 70 157/67 01/02/19 08:00 99.5 74 19 157/70 (99) 01/02/19 04:00 99.1 70 16 148/62 (90) 95 01/02/19 00:00 98.9 63 17 147/61 (89) 93 01/01/19 21:00 Room Air 01/01/19 20:00 98.7 68 17 156/57 (90) 93 01/01/19 16:00 78 172/60 Intake and Output 01/01/19 01/02/19 19:00 07:00 Output Total 800 ml 865 ml Balance -800 ml -865 ml Output Urine Total 800 ml 800 ml Drainage Total 65 ml # Bowel Movements 1 1 Laboratory Tests 01/01/19 17:55: Stool Occult Blood Positive 01/02/19 06:21: White Blood Count 8.3, Red Blood Count 2.79L, Hemoglobin 8.0L, Hematocrit 25.2L , Mean Corpuscular Volume 90, Mean Corpuscular Hemoglobin 28.6, Mean Corpuscular Hemoglobin Concent 31.7L, Red Cell Distribution Width 15.4H, Platelet Count 205, Mean Platelet Volume 7.5, Neutrophils (%) (Auto) 64.4, Lymphocytes (%) (Auto) 17.4L, Monocytes (%) (Auto) 8.3, Eosinophils (%) (Auto) 8.9H, Basophils (%) (Auto) 1.1, Sodium Level 145, Potassium Level 3.5, Chloride Level 107, Carbon Dioxide Level 22, Anion Gap 16H, Blood Urea Nitrogen 47H, Creatinine 5.3H, Estimat Glomerular Filtration Rate , Glucose Level 186H, Calcium Level 7.8L Height (Feet): 5 Height (Inches): 5.00 Weight (Pounds): 123 Cardiovascular: normal rate Respiratory/Chest: lungs clear Extremities: other - No edema Modesto Romero MD Jan 02, 2019 12:48
--- NOTE | 2019-01-02 14:15 | Pulmonolgy Critical Care Note ---
Critical Care - Asmt/Plan Assessment/Plan: Pulmonary Progress Note HPI This patient is sp R Colectomy, currently remains intubated, recently underwent a nephrectomy for large right kidney cancer. She subsequently has started dialysis for the past 2 weeks. She was at dialysis today when she felt pain in her abdomen. She also felt gassy. She denies nausea or vomiting. She denies fever or chills. She denies chest pain or shortness of breath. S/p Extubation , doing well, using IC Fisher DC, tolerating PO Mobilizing Allergies: Coded Allergies: SULFA (SULFONAMIDE ANTIBIOTICS) (Verified Allergy, Unknown, 11/21/14) COPIED FROM UNCODED SECTION Patient History Past Medical History: R Kidney Cancer, DM, HTN, HLP Past Surgical History: R Colectomy, R Nephrectomy 1 week ago. Review of Systems All Other Systems: negative except mentioned in HPI Physical Exam Vital Signs Noted General Appearance: no apparent distress, alert, intubated, non-toxic Head: normocephalic, atraumatic Eyes: bilateral eye normal inspection, bilateral eye PERRL ENT: hearing grossly normal, normal pharynx, no angioedema, normal voice Neck: full range of motion, supple/symm/no masses Respiratory: chest non-tender, lungs clear, normal breath sounds, no respiratory distress, no retraction, no accessory muscle use, speaking full sentences Cardiovascular #1: regular rate, rhythm, no edema Gastrointestinal: normal bowel sounds, soft, non-distended, no guarding, no rebound, tenderness, post operative changes Rectal: deferred Musculoskeletal: back normal, gait/station normal, normal range of motion, non- tender Neurologic: alert, o, responsive, motor strength/tone normal, sensory intact, speech normal Psychiatric: judgement/insight normal, memory normal, mood/affect normal, no suicidal/homicidal ideation Skin: normal color, no rash, warm/dry, well hydrated Impression: Primary Impression: Ischemic Colitis, s/p Colectomy Retroperitoneal Collection Hypertension DM HL Plan Triflo AB's PPX HEAD DOFFER meds IVF Laboratory Tests and XR noted Test 12/27/18 17:32 12/27/18 17:35 Urine Color Yellow Urine Appearance Clear Urine pH 9 (4.5-8.0) Urine Specific [place] 1.015 (1.005-1.035) Urine Protein 3+ (NEGATIVE) H Urine Glucose (UA) Negative (NEGATIVE) Urine Ketones Negative (NEGATIVE) Urine Blood 2+ (NEGATIVE) H Urine Nitrite Negative (NEGATIVE) Urine Bilirubin Negative (NEGATIVE) Urine Urobilinogen Normal MG/DL (0.0-1.0) Urine Leukocyte Esterase Negative (NEGATIVE) Urine RBC 0-2 /HPF (0 - 2) Urine WBC 0-2 /HPF (0 - 2) Urine Squamous Epithelial Cells Occasional /LPF Urine Bacteria None /HPF (NONE) White Blood Count 13.9 K/UL (4.8-10.8) H Red Blood Count 3.30 M/UL (4.20-5.40) L Hemoglobin 9.6 G/DL (12.0-16.0) L Hematocrit 29.3 % (37.0-47.0) L Mean Corpuscular Volume 89 FL (80-99) Mean Corpuscular Hemoglobin 29.1 PG (27.0-31.0) Mean Corpuscular Hemoglobin Concent 32.8 G/DL (32.0-36.0) Red Cell Distribution Width 15.6 % (11.6-14.8) H Platelet Count 271 K/UL (150-450) Mean Platelet Volume 6.5 FL (6.5-10.1) Neutrophils (%) (Auto) 80.9 % (45.0-75.0) H Lymphocytes (%) (Auto) 9.4 % (20.0-45.0) L Monocytes (%) (Auto) 5.5 % (1.0-10.0) Eosinophils (%) (Auto) 3.7 % (0.0-3.0) H Basophils (%) (Auto) 0.5 % (0.0-2.0) Sodium Level 139 MMOL/L (136-145) Potassium Level 3.9 MMOL/L (3.5-5.1) Chloride Level 101 MMOL/L (98-107) Carbon Dioxide Level 31 MMOL/L (21-32) Anion Gap 7 mmol/L (5-15) Blood Urea Nitrogen 29 mg/dL (7-18) H Creatinine 2.9 MG/DL (0.55-1.30) H Estimate Glomerular Filtration Rate mL/min (>60) Glucose Level 83 MG/DL (74-106) Calcium Level 8.6 MG/DL (8.5-10.1) Total Bilirubin 0.5 MG/DL (0.2-1.0) Aspartate Amino Transferase (AST) 39 U/L (15-37) H Alanine Aminotransferase (ALT) 22 U/L (12-78) Alkaline Phosphatase 89 U/L (46-116) Total Protein 7.8 G/DL (6.4-8.2) Albumin 2.8 G/DL (3.4-5.0) L Globulin 5.0 g/dL Albumin/Globulin Ratio 0.6 (1.0-2.7) L Lipase 529 U/L (73-393) H CT abd/pelvis Impression Multiple postoperative findings and some other findings that could be postoperative infection. Critical Care - Objective Last 24 Hour Vital Signs Date Time Temp Pulse Resp B/P (MAP) Pulse Ox O2 Delivery O2 Flow Rate FiO2 01/02/19 13:22 Room Air 21 01/02/19 13:22 96 Room Air 21 01/02/19 09:00 Room Air 01/02/19 08:57 70 157/67 01/02/19 08:00 99.5 74 19 157/70 (99) 01/02/19 04:00 99.1 70 16 148/62 (90) 95 01/02/19 00:00 98.9 63 17 147/61 (89) 93 01/01/19 21:00 Room Air 01/01/19 20:00 98.7 68 17 156/57 (90) 93 01/01/19 16:00 78 172/60 Micro: Microbiology Date/Time Source Procedure Growth Status 12/31/18 06:15 Sputum Induced Gram Stain - Final Complete 12/31/18 06:15 Sputum Induced Sputum Culture - Final NORMAL UPPER RESPIRATORY CINDI PRESENT Complete Critical Care - Subjective ROS Limited/Unobtainable: No Condition: improving IV Access: peripheral EKG Rhythm: Sinus Rhythm FI02: 21 Vent Support Breath Rate: 10 Vent Tidal Volume: 500 Sputum Amount: None PEEP: 0.0 PIP: 14 I&O: Intake and Output 01/01/19 01/02/19 19:00 07:00 Output Total 800 ml 865 ml Balance -800 ml -865 ml Output Urine Total 800 ml 800 ml Drainage Total 65 ml # Bowel Movements 1 1 ET-Tube: 8.0 ET Position: 23 Oj Gramajo MD Jan 02, 2019 14:15
[2019-01-02 16:00] VITALS: BP 161/69
[2019-01-02] MEDS ORDERED: D5NS 1000ml IV ONE (18:49)
[2019-01-02] MEDS ORDERED: NS 275ml ONE (18:49)
--- NOTE | 2019-01-02 19:12 | Internal Med Progress Note ---
Subjective Physician Name Oj Turcios Attending Physician Oj Turcios MD Current Medications Medications (Trade) Dose Ordered Sig/Kranthi Route PRN Reason Start Time Stop Time Status Last Admin Dose Admin Amlodipine Besylate (Norvasc) 5 mg DAILY ORAL 01/01/19 16:00 01/31/19 15:59 01/02/19 08:57 Dextrose (Dextrose 50%) 25 ml Q30M PRN IV Hypoglycemia 12/31/18 17:45 01/26/19 22:44 Dextrose (Dextrose 50%) 50 ml Q30M PRN IV Hypoglycemia 12/31/18 17:45 01/26/19 22:44 Epoetin Skinny (Epoetin Skinny(ESRD on dialysis)) 2,000 unit TUE-TUE-TUE SUBQ 01/01/19 21:00 01/31/19 20:59 01/01/19 20:53 Epoetin Skinny (Epoetin Skinny(ESRD on dialysis)) 3,000 unit TUE- SUBQ 01/01/19 21:00 01/31/19 20:59 01/01/19 20:53 Heparin Sodium (Porcine) (Heparin Sod 1000 units/ml 10ml) 500 unit ONCE PRN IV FOR HD USE ONLY 01/01/19 12:00 01/02/19 23:59 Hydralazine HCl (Apresoline) 25 mg Q4H PRN ORAL For High Blood Pressure 01/01/19 18:15 01/31/19 18:14 Morphine Sulfate (Morphine Sulfate) 2 mg Q2H PRN IVP For Pain 12/31/18 18:00 01/05/19 17:59 01/01/19 05:20 Ondansetron HCl (Zofran) 4 mg Q6H PRN IVP Nausea & Vomiting 12/31/18 17:30 01/26/19 17:29 Piperacillin Sod/ Tazobactam Sod 2.25 gm/Dextrose 55 ml @ 110 mls/hr Q8HR IV 01/01/19 22:00 01/04/19 05:59 01/02/19 17:08 Sodium Chloride 1,000 ml @ 500 mls/hr Q2H PRN IVLG sbp<90 during hd 01/01/19 12:00 01/02/19 23:59 Trazodone HCl (Desyrel) 50 mg BEDTIME ORAL 01/01/19 21:00 01/31/19 20:59 01/01/19 20:33 Vitamin B Complex/ Vit C/Folic Acid (Nephrovite) 1 tab DAILY ORAL 01/01/19 09:00 01/27/19 13:14 01/02/19 08:56 Allergies: Coded Allergies: SULFA (SULFONAMIDE ANTIBIOTICS) (Verified Allergy, Unknown, 11/21/14) COPIED FROM UNCODED SECTION Subjective started on clear liquid diet min abdominal pain no CP or SOB 12 pt ROS neg except above positives Objective Last Vital Signs Date Time Temp Pulse Resp B/P (MAP) Pulse Ox O2 Delivery O2 Flow Rate FiO2 01/02/19 16:00 99.6 77 18 161/69 (99) 01/02/19 13:22 Room Air 21 01/02/19 13:22 96 01/01/19 09:39 10.0 Laboratory Tests Test 01/02/19 06:21 White Blood Count 8.3 K/UL (4.8-10.8) Red Blood Count 2.79 M/UL (4.20-5.40) L Hemoglobin 8.0 G/DL (12.0-16.0) L Hematocrit 25.2 % (37.0-47.0) L Mean Corpuscular Volume 90 FL (80-99) Mean Corpuscular Hemoglobin 28.6 PG (27.0-31.0) Mean Corpuscular Hemoglobin Concent 31.7 G/DL (32.0-36.0) L Red Cell Distribution Width 15.4 % (11.6-14.8) H Platelet Count 205 K/UL (150-450) Mean Platelet Volume 7.5 FL (6.5-10.1) Neutrophils (%) (Auto) 64.4 % (45.0-75.0) Lymphocytes (%) (Auto) 17.4 % (20.0-45.0) L Monocytes (%) (Auto) 8.3 % (1.0-10.0) Eosinophils (%) (Auto) 8.9 % (0.0-3.0) H Basophils (%) (Auto) 1.1 % (0.0-2.0) Sodium Level 145 MMOL/L (136-145) Potassium Level 3.5 MMOL/L (3.5-5.1) Chloride Level 107 MMOL/L (98-107) Carbon Dioxide Level 22 MMOL/L (21-32) Anion Gap 16 mmol/L (5-15) H Blood Urea Nitrogen 47 mg/dL (7-18) H Creatinine 5.3 MG/DL (0.55-1.30) H Estimat Glomerular Filtration Rate mL/min (>60) Glucose Level 186 MG/DL (74-106) H Calcium Level 7.8 MG/DL (8.5-10.1) L Microbiology Date/Time Source Procedure Growth Status 12/31/18 06:15 Sputum Induced Gram Stain - Final Complete 12/31/18 06:15 Sputum Induced Sputum Culture - Final NORMAL UPPER RESPIRATORY CINDI PRESENT Complete Intake and Output 01/01/19 01/02/19 19:00 07:00 Output Total 800 ml 865 ml Balance -800 ml -865 ml Output Urine Total 800 ml 800 ml Drainage Total 65 ml # Bowel Movements 1 1 Objective gen - NAD. awake. HEENT - NC/AT. CVS - RRR. Nl s1,2 Lungs - CTA b/l Abd - covered with dressing. c/d/i. R LULA drain Ext - no c/c/e Assessment/Plan Assessment/Plan ASSESSMENT: 1. Ischemic bowel s/p diagnostic laparoscopy, exploratory laparotomy, right colectomy, drainage of abdominal wall fluid collection, evacuation of retroperitoneal hematoma (12/29) 2. Elevated lipase-may be falsely elevated lipase given the patient is not very tender over epigastric region versus acute pancreatitis. 3. Abdominal pain possibly also related to postsurgical abdominal infection. 4. End-stage renal disease, on hemodialysis. 5. Recent right kidney nephrectomy for renal cell carcinoma. 6. Diabetes. 7. Hypertension. 8. Hyperlipidemia. 9. pneumatosis which may be related to infectious colitis vs ischemic bowel PLAN: 1. Medsurg 2. IVF - off 3. Antibiotics, Zosyn and Vanco IV 4. ID recs appreciated 5. Surgery recs appreciated; 6. Nephrology consulted for hemodialysis orders. 7. start clears 8. Morphine 2mg IV Q 2hrs prn pain 9. change amlodipine to 10mg PO Q day DVT prophylaxis, SCDs. 9. Full Code. Oj Turcios MD Jan 02, 2019 19:12
--- NOTE | 2019-01-02 19:13 | Diagnostic Imaging Report ---
Indication: Dyspnea Comparison: 12/30/2018 A single view chest radiograph was obtained. Findings: Right permacath noted. Patient has been extubated. The heart is enlarged. No definite pulmonary edema is seen at this time. Pacemaker again noted. IMPRESSION: No acute disease currently. Postextubation
[2019-01-02 20:00] VITALS: BP 155/70
[2019-01-02] MEDS: TraZODone 50mg tab ORAL SCH (21:19)
[2019-01-03] VITALS: BP 145/74
[2019-01-03 04:00] VITALS: BP 180/62
[2019-01-03] MEDS: Piperacillin/Tazobactam 2.25 GM in D5W 55 ML IV SCH ×3 (05:40→21:33)
[2019-01-03 07:20] LABS: HEMATOCRIT 24.5 % (37.0-47.0); HEMOGLOBIN 7.8 G/DL (12.0-16.0); MEAN CORPUSCULAR VOLUME 90 FL (80-99); PLATELET COUNT 214 K/UL (150-450); RED BLOOD COUNT 2.72 M/UL (4.20-5.40); RED CELL DISTRIBUTION WIDTH 15.6 % (11.6-14.8)
[2019-01-03 07:45] LABS: ANION GAP 14 mmol/L (5-15); BLOOD UREA NITROGEN 34 mg/dL (7-18); CALCIUM 7.8 MG/DL (8.5-10.1); CARBON DIOXIDE 25 MMOL/L (21-32); CHLORIDE 102 MMOL/L (98-107); CREATININE 3.9 MG/DL (0.55-1.30); POTASSIUM 3.3 MMOL/L (3.5-5.1); SODIUM 141 MMOL/L (136-145)
[2019-01-03 08:00] VITALS: BP 106/65
[2019-01-03] MEDS: Nephrovite tab (Rena-Vite) ORAL SCH (08:09)
--- NOTE | 2019-01-03 09:37 | Urology Progress Note ---
Assessment/Plan Assessment/Plan 1. Abdominal pain hx. 2. Status post recent right nephrectomy, presumably for renal cell carcinoma. 3. Chronic kidney disease. 4. Proteinuria. 5. Urinary frequency history. 6. Rule out neurogenic bladder. 7. Hematuria. 8. POD # 5 ,exp lap monitor clinically hematoma in right renal fossa and abdominal wall evacuated abx as ordered HD per nephrology removal of LULA drain per Dr. Price Subjective Allergies: Coded Allergies: SULFA (SULFONAMIDE ANTIBIOTICS) (Verified Allergy, Unknown, 11/21/14) COPIED FROM UNCODED SECTION Subjective all noted, s/p exp lap and colectomy 12/29 right flank LULA drain, minimal output Objective Last 24 Hour Vital Signs Date Time Temp Pulse Resp B/P (MAP) Pulse Ox O2 Delivery O2 Flow Rate FiO2 01/03/19 08:13 74 109/66 01/03/19 08:00 99.1 73 17 106/65 (79) 98 01/03/19 04:00 98.9 65 17 180/62 (101) 95 01/03/19 00:00 99.1 76 17 145/74 (97) 98 01/02/19 21:00 Room Air 01/02/19 20:14 Room Air 21 01/02/19 20:14 97 Room Air 21 01/02/19 20:00 99.5 69 18 155/70 (98) 97 01/02/19 16:00 99.6 77 18 161/69 (99) 01/02/19 13:22 Room Air 21 01/02/19 13:22 96 Room Air 21 01/02/19 12:00 99.0 83 18 167/66 (99) 96 Intake and Output 01/02/19 01/03/19 18:59 06:59 Intake Total 55 ml 600 ml Output Total 20 ml Balance 55 ml 580 ml Intake Oral 600 ml IV Total 55 ml Drainage Total 20 ml # Voids 1 # Bowel Movements 3 3 Microbiology Date/Time Source Procedure Growth Status 12/28/18 20:38 Blood Blood Culture - Final NO GROWTH AFTER 5 DAYS Complete 12/31/18 06:15 Sputum Induced Gram Stain - Final Complete 12/31/18 06:15 Sputum Induced Sputum Culture - Final NORMAL UPPER RESPIRATORY CINDI PRESENT Complete 12/28/18 09:30 Stool Clostridium difficile Toxin Assay - Final Complete 12/29/18 11:00 Abdominal Fluid Gram Stain - Final Complete 12/29/18 11:00 Abdominal Fluid Aerobic Culture - Final NO GROWTH Complete 12/29/18 11:00 Abdominal Fluid Anaerobic Culture - Final NO GROWTH Complete Current Medications Medications (Trade) Dose Ordered Sig/Kranthi Route PRN Reason Start Time Stop Time Status Last Admin Dose Admin Amlodipine Besylate (Norvasc) 10 mg DAILY ORAL 01/03/19 09:00 01/31/19 15:59 Dextrose (Dextrose 50%) 25 ml Q30M PRN IV Hypoglycemia 12/31/18 17:45 01/26/19 22:44 Dextrose (Dextrose 50%) 50 ml Q30M PRN IV Hypoglycemia 12/31/18 17:45 01/26/19 22:44 Epoetin Skinny (Epoetin Skinny(ESRD on dialysis)) 2,000 unit TUE- SUBQ 01/01/19 21:00 01/31/19 20:59 01/01/19 20:53 Epoetin Skinny (Epoetin Skinny(ESRD on dialysis)) 3,000 unit TUE- SUBQ 01/01/19 21:00 01/31/19 20:59 01/01/19 20:53 Hydralazine HCl (Apresoline) 25 mg Q4H PRN ORAL For High Blood Pressure 01/01/19 18:15 01/31/19 18:14 Morphine Sulfate (Morphine Sulfate) 2 mg Q2H PRN IVP For Pain 12/31/18 18:00 01/05/19 17:59 01/01/19 05:20 Ondansetron HCl (Zofran) 4 mg Q6H PRN IVP Nausea & Vomiting 12/31/18 17:30 01/26/19 17:29 Piperacillin Sod/ Tazobactam Sod 2.25 gm/Dextrose 55 ml @ 110 mls/hr Q8HR IV 01/01/19 22:00 01/04/19 05:59 01/03/19 05:40 Trazodone HCl (Desyrel) 50 mg BEDTIME ORAL 01/01/19 21:00 01/31/19 20:59 01/02/19 21:19 Vitamin B Complex/ Vit C/Folic Acid (Nephrovite) 1 tab DAILY ORAL 01/01/19 09:00 01/27/19 13:14 01/03/19 08:09 Laboratory Tests 01/03/19 06:10: White Blood Count 7.0, Red Blood Count 2.72L, Hemoglobin 7.8L, Hematocrit 24.5L , Mean Corpuscular Volume 90, Mean Corpuscular Hemoglobin 28.7, Mean Corpuscular Hemoglobin Concent 31.9L, Red Cell Distribution Width 15.6H, Platelet Count 214, Mean Platelet Volume 7.6, Neutrophils (%) (Auto) , Lymphocytes (%) (Auto) , Monocytes (%) (Auto) , Eosinophils (%) (Auto) , Basophils (%) (Auto) , Differential Total Cells Counted 100, Neutrophils % ( Manual) 58, Lymphocytes % (Manual) 19L, Monocytes % (Manual) 14H, Eosinophils % (Manual) 8H, Basophils % (Manual) 1, Band Neutrophils 0, Reactive Lymphocytes 1+ , Platelet Estimate Adequate, Platelet Morphology Normal, Anisocytosis 1+, Ovalocytes 1+, Sodium Level 141, Potassium Level 3.3L, Chloride Level 102, Carbon Dioxide Level 25, Anion Gap 14, Blood Urea Nitrogen 34H, Creatinine 3.9H , Estimat Glomerular Filtration Rate , Glucose Level 191H, Calcium Level 7.8L Height (Feet): 5 Height (Inches): 5.00 Weight (Pounds): 125 Objective exam stable robledo indwelling, grossly yellow urine LULA drain in right flank CT noted Kvng Epperson MD Jan 03, 2019 09:37
--- NOTE | 2019-01-03 11:23 | GI Progress Note ---
Assessment/Plan Problems: (1) Ischemic colon ICD Codes: K55.9 - Vascular disorder of intestine, unspecified SNOMED: 59525611 (2) Diarrhea ICD Codes: R19.7 - Diarrhea, unspecified SNOMED: 80064530 (3) Anemia ICD Codes: D64.9 - Anemia, unspecified SNOMED: 321864939 (4) Pancreatitis ICD Codes: K85.90 - Acute pancreatitis without necrosis or infection, unspecified SNOMED: 04447702 (5) Ischemic colitis ICD Codes: K55.9 - Vascular disorder of intestine, unspecified SNOMED: 01789254 (6) Post-operative infection ICD Codes: T81.40XA - Infection following a procedure, unspecified, initial encounter SNOMED: 25051738, 224164841 Status: progressing Status Narrative Discussed with Dr. Nice Assessment/Plan Assessment - ischemic colitis - s/p partial colectomy - s/p nephrectomy - ESRD/HD - HTN Recommendations - post op care - PT evaluation - follow labs - feeds when OK with surgery - f/u pathology -Electrolyte correction - prn transfusions - PPI The patient was seen and examined at bedside and all new and available data was reviewed in the patients chart. I agree with the above findings, impression and plan. (Patient seen earlier today. Signature stamp does not reflect patient encounter time.). - Gianni Nice MD Subjective Subjective Abdominal pain improved Objective Last 24 Hour Vital Signs Date Time Temp Pulse Resp B/P (MAP) Pulse Ox O2 Delivery O2 Flow Rate FiO2 01/03/19 09:00 Room Air 01/03/19 08:13 74 109/66 01/03/19 08:00 99.1 73 17 106/65 (79) 98 01/03/19 04:00 98.9 65 17 180/62 (101) 95 01/03/19 00:00 99.1 76 17 145/74 (97) 98 01/02/19 21:00 Room Air 01/02/19 20:14 Room Air 21 01/02/19 20:14 97 Room Air 21 01/02/19 20:00 99.5 69 18 155/70 (98) 97 01/02/19 16:00 99.6 77 18 161/69 (99) 01/02/19 13:22 Room Air 21 01/02/19 13:22 96 Room Air 21 01/02/19 12:00 99.0 83 18 167/66 (99) 96 Intake and Output 01/02/19 01/03/19 19:00 07:00 Intake Total 55 ml 600 ml Output Total 20 ml Balance 55 ml 580 ml Intake Oral 600 ml IV Total 55 ml Drainage Total 20 ml # Voids 1 # Bowel Movements 3 3 Laboratory Tests Test 01/03/19 06:10 White Blood Count 7.0 K/UL (4.8-10.8) Red Blood Count 2.72 M/UL (4.20-5.40) L Hemoglobin 7.8 G/DL (12.0-16.0) L Hematocrit 24.5 % (37.0-47.0) L Mean Corpuscular Volume 90 FL (80-99) Mean Corpuscular Hemoglobin 28.7 PG (27.0-31.0) Mean Corpuscular Hemoglobin Concent 31.9 G/DL (32.0-36.0) L Red Cell Distribution Width 15.6 % (11.6-14.8) H Platelet Count 214 K/UL (150-450) Mean Platelet Volume 7.6 FL (6.5-10.1) Neutrophils (%) (Auto) % (45.0-75.0) Lymphocytes (%) (Auto) % (20.0-45.0) Monocytes (%) (Auto) % (1.0-10.0) Eosinophils (%) (Auto) % (0.0-3.0) Basophils (%) (Auto) % (0.0-2.0) Differential Total Cells Counted 100 Neutrophils % (Manual) 58 % (45-75) Lymphocytes % (Manual) 19 % (20-45) L Monocytes % (Manual) 14 % (1-10) H Eosinophils % (Manual) 8 % (0-3) H Basophils % (Manual) 1 % (0-2) Band Neutrophils 0 % (0-8) Reactive Lymphocytes 1+ Platelet Estimate Adequate Platelet Morphology Normal Anisocytosis 1+ Ovalocytes 1+ Sodium Level 141 MMOL/L (136-145) Potassium Level 3.3 MMOL/L (3.5-5.1) L Chloride Level 102 MMOL/L (98-107) Carbon Dioxide Level 25 MMOL/L (21-32) Anion Gap 14 mmol/L (5-15) Blood Urea Nitrogen 34 mg/dL (7-18) H Creatinine 3.9 MG/DL (0.55-1.30) H Estimat Glomerular Filtration Rate mL/min (>60) Glucose Level 191 MG/DL (74-106) H Calcium Level 7.8 MG/DL (8.5-10.1) L Height (Feet): 5 Height (Inches): 5.00 Weight (Pounds): 125 General Appearance: WD/WN, no apparent distress, alert, thin Cardiovascular: normal rate Respiratory/Chest: normal breath sounds, no respiratory distress Abdominal Exam: normal bowel sounds, non tender, soft Extremities: normal range of motion, non-tender, other - Out of bed Emiliana Garibay NP Jan 03, 2019 11:23
[2019-01-03 12:00] VITALS: BP 181/66
--- NOTE | 2019-01-03 14:10 | Nephrology Progress Note ---
Assessment/Plan Problem List: (1) ESRD (end stage renal disease) on dialysis (2) Ischemic colon Assessment: S/P colectomy (3) Anemia Assessment: better (4) DM (diabetes mellitus) (5) HTN (hypertension) Plan HD in AM cont Epogen abxs follow labs Discussed with HD RN Subjective Subjective ok Objective Objective Last 24 Hour Vital Signs Date Time Temp Pulse Resp B/P (MAP) Pulse Ox O2 Delivery O2 Flow Rate FiO2 01/03/19 13:42 78 174/67 01/03/19 12:23 181/66 01/03/19 12:00 97.9 82 18 181/66 (104) 99 01/03/19 09:00 Room Air 01/03/19 08:13 74 109/66 01/03/19 08:00 99.1 73 17 106/65 (79) 98 01/03/19 04:00 98.9 65 17 180/62 (101) 95 01/03/19 00:00 99.1 76 17 145/74 (97) 98 01/02/19 21:00 Room Air 01/02/19 20:14 Room Air 21 01/02/19 20:14 97 Room Air 21 01/02/19 20:00 99.5 69 18 155/70 (98) 97 01/02/19 16:00 99.6 77 18 161/69 (99) Intake and Output 01/02/19 01/03/19 19:00 07:00 Intake Total 55 ml 600 ml Output Total 20 ml Balance 55 ml 580 ml Intake Oral 600 ml IV Total 55 ml Drainage Total 20 ml # Voids 1 # Bowel Movements 3 3 Laboratory Tests 01/03/19 06:10: White Blood Count 7.0, Red Blood Count 2.72L, Hemoglobin 7.8L, Hematocrit 24.5L , Mean Corpuscular Volume 90, Mean Corpuscular Hemoglobin 28.7, Mean Corpuscular Hemoglobin Concent 31.9L, Red Cell Distribution Width 15.6H, Platelet Count 214, Mean Platelet Volume 7.6, Neutrophils (%) (Auto) , Lymphocytes (%) (Auto) , Monocytes (%) (Auto) , Eosinophils (%) (Auto) , Basophils (%) (Auto) , Differential Total Cells Counted 100, Neutrophils % ( Manual) 58, Lymphocytes % (Manual) 19L, Monocytes % (Manual) 14H, Eosinophils % (Manual) 8H, Basophils % (Manual) 1, Band Neutrophils 0, Reactive Lymphocytes 1+ , Platelet Estimate Adequate, Platelet Morphology Normal, Anisocytosis 1+, Ovalocytes 1+, Sodium Level 141, Potassium Level 3.3L, Chloride Level 102, Carbon Dioxide Level 25, Anion Gap 14, Blood Urea Nitrogen 34H, Creatinine 3.9H , Estimat Glomerular Filtration Rate , Glucose Level 191H, Calcium Level 7.8L Height (Feet): 5 Height (Inches): 5.00 Weight (Pounds): 125 Cardiovascular: normal rate Respiratory/Chest: lungs clear Extremities: trace edema Modesto Romero MD Jan 03, 2019 14:10
--- NOTE | 2019-01-03 15:50 | Infectious Diseases Prog Note ---
Assessment/Plan Assessment/Plan ASSESSMENT AND PLAN: 1. sepsis, ischemic colitis, hematoma/fluid collection, ? aspiration pna/hcap vs atx, leukocytosis, fevers - zosyn for now, discontinue vancomycin since no evidence of mrsa infection - monitor labs, monitor chest x-ray, cultures negative to date - clinically improved - continue tx per primary, surgery and consultants - chest x-ray - improved 2. The patient has end-stage renal disease, on hemodialysis. 3. The patient is status post right nephrectomy for renal ca per hx 4. Anemia. 5. Renal carcinoma requiring right nephrectomy. 6. Urology followup. 7. Hypertension. 8. Hyperlipidemia. 9. Congestive heart failure. 10. Diastolic dysfunction. 11. End-stage renal disease, on hemodialysis and dialysis line. 12. Sick sinus syndrome. 13. Pacemaker. 14. WILLIAMS. 15. Diabetes. 16. Hypertension. 17. Diabetes and hypertension, treatment per primary . 18. Dyslipidemia. 19. Continue treatment per primary consultants. 20. Notes and records were noted. 21. Orders were entered. 22. Family history is noncontributory. 23. Social history is negative. 24. MAR was noted. 25. Case was discussed with RN. 26. Allergies to sulfa drugs. Subjective Constitutional: Denies: fever HEENT: Denies: congestion Respiratory: Denies: shortness of breath Cardiovascular: Denies: chest pain Gastrointestinal/Abdominal: Denies: nausea, vomiting, diarrhea Genitourinary: Reports: other - no robledo Neurologic: Denies: headache Psychiatric: Denies: depression Skin: Denies: rash Hematologic: Denies: bleeding Musculoskeletal: Denies: pain Allergies: Coded Allergies: SULFA (SULFONAMIDE ANTIBIOTICS) (Verified Allergy, Unknown, 11/21/14) COPIED FROM UNCODED SECTION Objective Vital Signs Last 24 Hour Vital Signs Date Time Temp Pulse Resp B/P (MAP) Pulse Ox O2 Delivery O2 Flow Rate FiO2 01/03/19 13:42 78 174/67 01/03/19 12:23 181/66 01/03/19 12:00 97.9 82 18 181/66 (104) 99 01/03/19 09:00 Room Air 01/03/19 08:13 74 109/66 01/03/19 08:00 99.1 73 17 106/65 (79) 98 01/03/19 04:00 98.9 65 17 180/62 (101) 95 01/03/19 00:00 99.1 76 17 145/74 (97) 98 01/02/19 21:00 Room Air 01/02/19 20:14 Room Air 21 01/02/19 20:14 97 Room Air 21 01/02/19 20:00 99.5 69 18 155/70 (98) 97 01/02/19 16:00 99.6 77 18 161/69 (99) Height (Feet): 5 Height (Inches): 5.00 Weight (Pounds): 125 General Appearance: no acute distress HEENT: normocephalic, atraumatic, anicteric, mucous membranes moist Respiratory/Chest: lungs clear, normal breath sounds, no respiratory distress, no accessory muscle use Cardiovascular: normal rate, regular rhythm, no gallop/murmur, no JVD Abdomen: normal bowel sounds, soft, non tender, no organomegaly, non distended Genitourinary: other - no robledo Extremities: no cyanosis Skin: no rash Neurologic/Psychiatric: bow maker gift wrapping II-XII grossly normal, alert, responsive Lymphatic: no neck adenopathy Musculoskeletal: no effusion Objective Chest x-ray - Chest x-ray - 12/30/18 IMPRESSION: 1. Left lung base atelectasis/airspace disease and/or small pleural effusion, stable from prior study. 2. Tiny amount of free air under the right hemidiaphragm is improved from prior study. CT abdomen and pelvis: IMPRESSION: Portal venous gas and pneumatosis in the right hemicolon. Bowel ischemia not excluded. Status post right nephrectomy with right retroperitoneal fluid collection and a right anterolateral wall fluid collection likely postsurgical in nature. These may represent liquefied hematomas, seromas, or infected fluid such as abscess. Correlate clinically. Atherosclerotic vascular disease Cystic foci within the pelvis likely of ovarian origin as described above Moderate fecal retention. Degenerative changes of the spine. [facility] has communicated the preliminary results to the Emergency Department. Their findings are largely concordant with this report. Chest x-raty - 01/01/19 - NAD Microbiology Date/Time Source Procedure Growth Status 12/28/18 20:38 Blood Blood Culture - Final NO GROWTH AFTER 5 DAYS Complete 12/31/18 06:15 Sputum Induced Gram Stain - Final Complete 12/31/18 06:15 Sputum Induced Sputum Culture - Final NORMAL UPPER RESPIRATORY CINDI PRESENT Complete 12/28/18 09:30 Stool Clostridium difficile Toxin Assay - Final Complete 12/29/18 11:00 Abdominal Fluid Gram Stain - Final Complete 12/29/18 11:00 Abdominal Fluid Aerobic Culture - Final NO GROWTH Complete 12/29/18 11:00 Abdominal Fluid Anaerobic Culture - Final NO GROWTH Complete Laboratory Tests Test 01/03/19 06:10 White Blood Count 7.0 K/UL (4.8-10.8) Red Blood Count 2.72 M/UL (4.20-5.40) L Hemoglobin 7.8 G/DL (12.0-16.0) L Hematocrit 24.5 % (37.0-47.0) L Mean Corpuscular Volume 90 FL (80-99) Mean Corpuscular Hemoglobin 28.7 PG (27.0-31.0) Mean Corpuscular Hemoglobin Concent 31.9 G/DL (32.0-36.0) L Red Cell Distribution Width 15.6 % (11.6-14.8) H Platelet Count 214 K/UL (150-450) Mean Platelet Volume 7.6 FL (6.5-10.1) Neutrophils (%) (Auto) % (45.0-75.0) Lymphocytes (%) (Auto) % (20.0-45.0) Monocytes (%) (Auto) % (1.0-10.0) Eosinophils (%) (Auto) % (0.0-3.0) Basophils (%) (Auto) % (0.0-2.0) Differential Total Cells Counted 100 Neutrophils % (Manual) 58 % (45-75) Lymphocytes % (Manual) 19 % (20-45) L Monocytes % (Manual) 14 % (1-10) H Eosinophils % (Manual) 8 % (0-3) H Basophils % (Manual) 1 % (0-2) Band Neutrophils 0 % (0-8) Reactive Lymphocytes 1+ Platelet Estimate Adequate Platelet Morphology Normal Anisocytosis 1+ Ovalocytes 1+ Sodium Level 141 MMOL/L (136-145) Potassium Level 3.3 MMOL/L (3.5-5.1) L Chloride Level 102 MMOL/L (98-107) Carbon Dioxide Level 25 MMOL/L (21-32) Anion Gap 14 mmol/L (5-15) Blood Urea Nitrogen 34 mg/dL (7-18) H Creatinine 3.9 MG/DL (0.55-1.30) H Estimat Glomerular Filtration Rate mL/min (>60) Glucose Level 191 MG/DL (74-106) H Calcium Level 7.8 MG/DL (8.5-10.1) L Current Medications Medications (Trade) Dose Ordered Sig/Kranthi Route PRN Reason Start Time Stop Time Status Last Admin Dose Admin Amlodipine Besylate (Norvasc) 10 mg DAILY ORAL 01/03/19 09:00 01/31/19 15:59 01/03/19 13:42 Dextrose (Dextrose 50%) 25 ml Q30M PRN IV Hypoglycemia 12/31/18 17:45 01/26/19 22:44 Dextrose (Dextrose 50%) 50 ml Q30M PRN IV Hypoglycemia 12/31/18 17:45 01/26/19 22:44 Epoetin Skinny (Epoetin Skinny(ESRD on dialysis)) 2,000 unit TUE-TUE-TUE SUBQ 01/01/19 21:00 01/31/19 20:59 01/01/19 20:53 Epoetin Skinny (Epoetin Skinny(ESRD on dialysis)) 3,000 unit TUE-TUE-TUE SUBQ 01/01/19 21:00 01/31/19 20:59 01/01/19 20:53 Heparin Sodium (Porcine) (Heparin Sod 1000 units/ml 10ml) 500 unit ONCE PRN IV HD 01/04/19 06:00 01/04/19 23:59 Heparin Sodium (Porcine) (Heparin) 1,000 unit POSTHD PRN INJ POSTHD 01/04/19 06:00 01/04/19 23:59 Hydralazine HCl (Apresoline) 25 mg Q4H PRN ORAL For High Blood Pressure 01/01/19 18:15 01/31/19 18:14 01/03/19 12:23 Morphine Sulfate (Morphine Sulfate) 2 mg Q2H PRN IVP For Pain 12/31/18 18:00 01/05/19 17:59 01/01/19 05:20 Ondansetron HCl (Zofran) 4 mg Q6H PRN IVP Nausea & Vomiting 12/31/18 17:30 01/26/19 17:29 Piperacillin Sod/ Tazobactam Sod 2.25 gm/Dextrose 55 ml @ 110 mls/hr Q8HR IV 01/01/19 22:00 01/08/19 21:59 01/03/19 14:16 Sodium Chloride 1,000 ml @ 500 mls/hr Q2H PRN IVLG sbp<90 during hd 01/04/19 06:00 01/04/19 23:59 Trazodone HCl (Desyrel) 50 mg BEDTIME ORAL 01/01/19 21:00 01/31/19 20:59 01/02/19 21:19 Vitamin B Complex/ Vit C/Folic Acid (Nephrovite) 1 tab DAILY ORAL 01/01/19 09:00 01/27/19 13:14 01/03/19 08:09 Ignacia Bills MD Jan 03, 2019 15:50
[2019-01-03 16:00] VITALS: BP 171/64
[2019-01-03 20:00] VITALS: BP 161/58
--- NOTE | 2019-01-03 20:17 | Internal Med Progress Note ---
Subjective Physician Name Oj Turcios Attending Physician Oj Turcios MD Current Medications Medications (Trade) Dose Ordered Sig/Kranthi Route PRN Reason Start Time Stop Time Status Last Admin Dose Admin Amlodipine Besylate (Norvasc) 10 mg DAILY ORAL 01/03/19 09:00 01/31/19 15:59 01/03/19 13:42 Clonidine HCl (Catapres TTS-2) 1 patch QWEEK TDERMAL 01/03/19 18:00 02/02/19 17:59 01/03/19 19:47 Dextrose (Dextrose 50%) 25 ml Q30M PRN IV Hypoglycemia 12/31/18 17:45 01/26/19 22:44 Dextrose (Dextrose 50%) 50 ml Q30M PRN IV Hypoglycemia 12/31/18 17:45 01/26/19 22:44 Epoetin Skinny (Epoetin Skinny(ESRD on dialysis)) 2,000 unit TUE-TUE-TUE SUBQ 01/01/19 21:00 01/31/19 20:59 01/01/19 20:53 Epoetin Skinny (Epoetin Skinny(ESRD on dialysis)) 3,000 unit TUE-TUE-TUE SUBQ 01/01/19 21:00 01/31/19 20:59 01/01/19 20:53 Heparin Sodium (Porcine) (Heparin Sod 1000 units/ml 10ml) 500 unit ONCE PRN IV HD 01/04/19 06:00 01/04/19 23:59 Heparin Sodium (Porcine) (Heparin) 1,000 unit POSTHD PRN INJ POSTHD 01/04/19 06:00 01/04/19 23:59 Hydralazine HCl (Apresoline) 25 mg Q4H PRN ORAL For High Blood Pressure 01/01/19 18:15 01/31/19 18:14 01/03/19 12:23 Morphine Sulfate (Morphine Sulfate) 2 mg Q2H PRN IVP For Pain 12/31/18 18:00 01/05/19 17:59 01/01/19 05:20 Ondansetron HCl (Zofran) 4 mg Q6H PRN IVP Nausea & Vomiting 12/31/18 17:30 01/26/19 17:29 Piperacillin Sod/ Tazobactam Sod 2.25 gm/Dextrose 55 ml @ 110 mls/hr Q8HR IV 01/01/19 22:00 01/08/19 21:59 01/03/19 14:16 Sodium Chloride 1,000 ml @ 500 mls/hr Q2H PRN IVLG sbp<90 during hd 01/04/19 06:00 01/04/19 23:59 Trazodone HCl (Desyrel) 50 mg BEDTIME ORAL 01/01/19 21:00 01/31/19 20:59 01/02/19 21:19 Vitamin B Complex/ Vit C/Folic Acid (Nephrovite) 1 tab DAILY ORAL 01/01/19 09:00 01/27/19 13:14 01/03/19 08:09 Allergies: Coded Allergies: SULFA (SULFONAMIDE ANTIBIOTICS) (Verified Allergy, Unknown, 11/21/14) COPIED FROM UNCODED SECTION Subjective tolerating clear liquid diet H/H stable min abdominal pain no CP or SOB 12 pt ROS neg except above positives Objective Last Vital Signs Date Time Temp Pulse Resp B/P (MAP) Pulse Ox O2 Delivery O2 Flow Rate FiO2 01/03/19 19:47 171/64 01/03/19 16:00 98.3 73 18 98 01/03/19 09:00 Room Air 01/02/19 20:14 21 01/01/19 09:39 10.0 Laboratory Tests Test 01/03/19 06:10 White Blood Count 7.0 K/UL (4.8-10.8) Red Blood Count 2.72 M/UL (4.20-5.40) L Hemoglobin 7.8 G/DL (12.0-16.0) L Hematocrit 24.5 % (37.0-47.0) L Mean Corpuscular Volume 90 FL (80-99) Mean Corpuscular Hemoglobin 28.7 PG (27.0-31.0) Mean Corpuscular Hemoglobin Concent 31.9 G/DL (32.0-36.0) L Red Cell Distribution Width 15.6 % (11.6-14.8) H Platelet Count 214 K/UL (150-450) Mean Platelet Volume 7.6 FL (6.5-10.1) Neutrophils (%) (Auto) % (45.0-75.0) Lymphocytes (%) (Auto) % (20.0-45.0) Monocytes (%) (Auto) % (1.0-10.0) Eosinophils (%) (Auto) % (0.0-3.0) Basophils (%) (Auto) % (0.0-2.0) Differential Total Cells Counted 100 Neutrophils % (Manual) 58 % (45-75) Lymphocytes % (Manual) 19 % (20-45) L Monocytes % (Manual) 14 % (1-10) H Eosinophils % (Manual) 8 % (0-3) H Basophils % (Manual) 1 % (0-2) Band Neutrophils 0 % (0-8) Reactive Lymphocytes 1+ Platelet Estimate Adequate Platelet Morphology Normal Anisocytosis 1+ Ovalocytes 1+ Sodium Level 141 MMOL/L (136-145) Potassium Level 3.3 MMOL/L (3.5-5.1) L Chloride Level 102 MMOL/L (98-107) Carbon Dioxide Level 25 MMOL/L (21-32) Anion Gap 14 mmol/L (5-15) Blood Urea Nitrogen 34 mg/dL (7-18) H Creatinine 3.9 MG/DL (0.55-1.30) H Estimat Glomerular Filtration Rate mL/min (>60) Glucose Level 191 MG/DL (74-106) H Calcium Level 7.8 MG/DL (8.5-10.1) L Intake and Output 01/02/19 01/03/19 19:00 07:00 Intake Total 55 ml 600 ml Output Total 20 ml Balance 55 ml 580 ml Intake Oral 600 ml IV Total 55 ml Drainage Total 20 ml # Voids 1 # Bowel Movements 3 3 Objective gen - NAD. awake. HEENT - NC/AT. CVS - RRR. Nl s1,2 Lungs - CTA b/l Abd - covered with dressing. c/d/i. R LULA drain Ext - no c/c/e Assessment/Plan Assessment/Plan ASSESSMENT: 1. Ischemic bowel s/p diagnostic laparoscopy, exploratory laparotomy, right colectomy, drainage of abdominal wall fluid collection, evacuation of retroperitoneal hematoma (12/29) 2. Elevated lipase-may be falsely elevated lipase given the patient is not very tender over epigastric region versus acute pancreatitis. 3. Abdominal pain possibly also related to postsurgical abdominal infection. 4. End-stage renal disease, on hemodialysis. 5. Recent right kidney nephrectomy for renal cell carcinoma. 6. Diabetes. 7. Hypertension. 8. Hyperlipidemia. 9. pneumatosis which may be related to infectious colitis vs ischemic bowel PLAN: 1. Medsurg 2. IVF - off 3. Antibiotics, Zosyn and Vanco IV 4. ID recs appreciated 5. Surgery recs appreciated; 6. Nephrology consulted for hemodialysis orders. 7. Diet - clears 8. Morphine 2mg IV Q 2hrs prn pain 9. change amlodipine to procardia 30mg PO Q am; started on clonidine patch 0.1 DVT prophylaxis, SCDs. 9. Full Code. Oj Turcios MD Jan 03, 2019 20:17
[2019-01-03] MEDS: EPOETIN ALFA 2000 UNIT/ML SUBQ SCH (21:26)
[2019-01-03] MEDS: Epoetin Alfa(ESRD on dialysis)3000 units/ml vial SUBQ SCH (21:26)
[2019-01-03] MEDS: TraZODone 50mg tab ORAL SCH (21:26)
[2019-01-04] VITALS: BP_SYST 159; BP_SYST 161; BP_DIAS 55; BP_DIAS 58
[2019-01-04 04:00] VITALS: BP 175/66
[2019-01-04] MEDS: Piperacillin/Tazobactam 2.25 GM in D5W 55 ML IV SCH ×3 (05:05→21:38)
[2019-01-04] MEDS ORDERED: Heparin Sod 1000 units/ml 10ml IV PRN (06:00)
[2019-01-04] MEDS ORDERED: Heparin 1000 units/ml 1ml Vial INJ PRN (06:00)
[2019-01-04 07:12] LABS: ANION GAP 11 mmol/L (5-15); BLOOD UREA NITROGEN 35 mg/dL (7-18); CALCIUM 7.4 MG/DL (8.5-10.1); CARBON DIOXIDE 26 MMOL/L (21-32); CHLORIDE 102 MMOL/L (98-107); CREATININE 4.2 MG/DL (0.55-1.30); POTASSIUM 3.1 MMOL/L (3.5-5.1); SODIUM 139 MMOL/L (136-145)
[2019-01-04 07:22] LABS: HEMATOCRIT 23.4 % (37.0-47.0); HEMOGLOBIN 7.6 G/DL (12.0-16.0); MEAN CORPUSCULAR VOLUME 88 FL (80-99); PLATELET COUNT 224 K/UL (150-450); RED BLOOD COUNT 2.66 M/UL (4.20-5.40); RED CELL DISTRIBUTION WIDTH 15.3 % (11.6-14.8); WHITE BLOOD COUNT 6.6 K/UL (4.8-10.8)
[2019-01-04 08:00] VITALS: BP 172/79
--- NOTE | 2019-01-04 08:56 | Urology Progress Note ---
Assessment/Plan Assessment/Plan 1. Abdominal pain hx. 2. Status post recent right nephrectomy, presumably for renal cell carcinoma. 3. Chronic kidney disease. 4. Proteinuria. 5. Urinary frequency history. 6. Rule out neurogenic bladder. 7. Hematuria. 8. POD # 6 ,exp lap monitor clinically hematoma in right renal fossa and abdominal wall evacuated abx as ordered HD per nephrology removal of LULA drain per Dr. Price Subjective Allergies: Coded Allergies: SULFA (SULFONAMIDE ANTIBIOTICS) (Verified Allergy, Unknown, 11/21/14) COPIED FROM UNCODED SECTION Subjective all noted, s/p exp lap and colectomy 12/29 right flank LULA drain, 60 cc output in 24 hours per nurse report Objective Last 24 Hour Vital Signs Date Time Temp Pulse Resp B/P (MAP) Pulse Ox O2 Delivery O2 Flow Rate FiO2 01/04/19 08:00 99.4 74 20 172/79 (110) 95 01/04/19 04:00 98.2 71 24 175/66 (102) 98 01/04/19 00:00 98.4 74 24 159/55 (89) 98 01/04/19 00:00 98.6 71 20 161/58 (92) 100 01/03/19 20:45 Room Air 01/03/19 20:00 98.6 71 20 161/58 (92) 100 01/03/19 19:47 171/64 01/03/19 16:00 98.3 73 18 171/64 (99) 98 01/03/19 13:42 78 174/67 01/03/19 12:23 181/66 01/03/19 12:00 97.9 82 18 181/66 (104) 99 01/03/19 09:00 Room Air Intake and Output 01/03/19 01/04/19 18:59 06:59 Intake Total 500 ml 110 ml Output Total 40 ml 40 ml Balance 460 ml 70 ml Intake Oral 500 ml IV Total 110 ml Drainage Total 40 ml 40 ml # Voids 2 2 # Bowel Movements 1 1 Microbiology Date/Time Source Procedure Growth Status 12/28/18 20:38 Blood Blood Culture - Final NO GROWTH AFTER 5 DAYS Complete 12/31/18 06:15 Sputum Induced Gram Stain - Final Complete 12/31/18 06:15 Sputum Induced Sputum Culture - Final NORMAL UPPER RESPIRATORY CINDI PRESENT Complete 12/28/18 09:30 Stool Clostridium difficile Toxin Assay - Final Complete 12/29/18 11:00 Abdominal Fluid Gram Stain - Final Complete 12/29/18 11:00 Abdominal Fluid Aerobic Culture - Final NO GROWTH Complete 12/29/18 11:00 Abdominal Fluid Anaerobic Culture - Final NO GROWTH Complete Current Medications Medications (Trade) Dose Ordered Sig/Kranthi Route PRN Reason Start Time Stop Time Status Last Admin Dose Admin Clonidine HCl (Catapres TTS-2) 1 patch QWEEK TDERMAL 01/03/19 18:00 02/02/19 17:59 01/03/19 19:47 Dextrose (Dextrose 50%) 25 ml Q30M PRN IV Hypoglycemia 12/31/18 17:45 01/26/19 22:44 Dextrose (Dextrose 50%) 50 ml Q30M PRN IV Hypoglycemia 12/31/18 17:45 01/26/19 22:44 Epoetin Skinny (Epoetin Skinny(ESRD on dialysis)) 2,000 unit TUE-TUE-TUE SUBQ 01/01/19 21:00 01/31/19 20:59 01/03/19 21:26 Epoetin Skinny (Epoetin Skinny(ESRD on dialysis)) 3,000 unit TUE-TUE-TUE SUBQ 01/01/19 21:00 01/31/19 20:59 01/03/19 21:26 Heparin Sodium (Porcine) (Heparin Sod 1000 units/ml 10ml) 500 unit ONCE PRN IV HD 01/04/19 06:00 01/04/19 23:59 Heparin Sodium (Porcine) (Heparin) 1,000 unit POSTHD PRN INJ POSTHD 01/04/19 06:00 01/04/19 23:59 Hydralazine HCl (Apresoline) 25 mg Q4H PRN ORAL For High Blood Pressure 01/01/19 18:15 01/31/19 18:14 01/03/19 12:23 Morphine Sulfate (Morphine Sulfate) 2 mg Q2H PRN IVP For Pain 12/31/18 18:00 01/05/19 17:59 01/01/19 05:20 Nifedipine (Procardia XL) 30 mg DAILY ORAL 01/04/19 09:00 02/03/19 08:59 Ondansetron HCl (Zofran) 4 mg Q6H PRN IVP Nausea & Vomiting 12/31/18 17:30 01/26/19 17:29 Piperacillin Sod/ Tazobactam Sod 2.25 gm/Dextrose 55 ml @ 110 mls/hr Q8HR IV 01/01/19 22:00 01/08/19 21:59 01/04/19 05:05 Sodium Chloride 1,000 ml @ 500 mls/hr Q2H PRN IVLG sbp<90 during hd 01/04/19 06:00 01/04/19 23:59 Trazodone HCl (Desyrel) 50 mg BEDTIME ORAL 01/01/19 21:00 01/31/19 20:59 01/03/19 21:26 Vitamin B Complex/ Vit C/Folic Acid (Nephrovite) 1 tab DAILY ORAL 01/01/19 09:00 01/27/19 13:14 01/03/19 08:09 Laboratory Tests 01/04/19 05:35: White Blood Count 6.6, Red Blood Count 2.66L, Hemoglobin 7.6L, Hematocrit 23.4L , Mean Corpuscular Volume 88, Mean Corpuscular Hemoglobin 28.5, Mean Corpuscular Hemoglobin Concent 32.3, Red Cell Distribution Width 15.3H, Platelet Count 224, Mean Platelet Volume 7.5, Neutrophils (%) (Auto) , Lymphocytes (%) (Auto) , Monocytes (%) (Auto) , Eosinophils (%) (Auto) , Basophils (%) (Auto) , Neutrophils % (Manual) [Pending], Lymphocytes % (Manual) [Pending], Platelet Estimate [Pending], Platelet Morphology [Pending], Sodium Level 139, Potassium Level 3.1L, Chloride Level 102, Carbon Dioxide Level 26, Anion Gap 11, Blood Urea Nitrogen 35H, Creatinine 4.2H, Estimat Glomerular Filtration Rate , Glucose Level 308#H, Calcium Level 7.4L, Phosphorus Level 4.0 , Magnesium Level 1.7L Height (Feet): 5 Height (Inches): 5.00 Weight (Pounds): 118 Objective exam stable robledo indwelling, grossly yellow urine LULA drain in right flank CT noted Kvng Epperson MD Jan 04, 2019 08:56
[2019-01-04] MEDS: Nephrovite tab (Rena-Vite) ORAL SCH (09:07)
[2019-01-04 12:00] VITALS: BP 183/66
--- NOTE | 2019-01-04 12:25 | GI Progress Note ---
Assessment/Plan Problems: (1) Ischemic colon ICD Codes: K55.9 - Vascular disorder of intestine, unspecified SNOMED: 58779496 (2) Diarrhea ICD Codes: R19.7 - Diarrhea, unspecified SNOMED: 36260772 (3) Anemia ICD Codes: D64.9 - Anemia, unspecified SNOMED: 548061012 (4) Pancreatitis ICD Codes: K85.90 - Acute pancreatitis without necrosis or infection, unspecified SNOMED: 24727003 (5) Ischemic colitis ICD Codes: K55.9 - Vascular disorder of intestine, unspecified SNOMED: 44878414 (6) Post-operative infection ICD Codes: T81.40XA - Infection following a procedure, unspecified, initial encounter SNOMED: 47184758, 637825357 Status: doing well, progressing Status Narrative Discussed with Dr. Nice. Assessment/Plan Assessment - ischemic colitis - s/p partial colectomy - s/p nephrectomy - ESRD/HD - HTN Recommendations - post op care - PT evaluation - follow labs - feeds when OK with surgery - f/u pathology -Electrolyte correction - prn transfusions - PPI The patient was seen and examined at bedside and all new and available data was reviewed in the patients chart. I agree with the above findings, impression and plan. (Patient seen earlier today. Signature stamp does not reflect patient encounter time.). - Gianni Nice MD Subjective Gastrointestinal/Abdominal: Reports: no symptoms Subjective Abdominal pain improved Objective Last 24 Hour Vital Signs Date Time Temp Pulse Resp B/P (MAP) Pulse Ox O2 Delivery O2 Flow Rate FiO2 01/04/19 09:08 74 172/79 01/04/19 09:00 Room Air 01/04/19 08:00 99.4 74 20 172/79 (110) 95 01/04/19 04:00 98.2 71 24 175/66 (102) 98 01/04/19 00:00 98.4 74 24 159/55 (89) 98 01/04/19 00:00 98.6 71 20 161/58 (92) 100 01/03/19 20:45 Room Air 01/03/19 20:00 98.6 71 20 161/58 (92) 100 01/03/19 19:47 171/64 01/03/19 16:00 98.3 73 18 171/64 (99) 98 01/03/19 13:42 78 174/67 Intake and Output 01/03/19 01/04/19 18:59 06:59 Intake Total 500 ml 110 ml Output Total 40 ml 40 ml Balance 460 ml 70 ml Intake Oral 500 ml IV Total 110 ml Drainage Total 40 ml 40 ml # Voids 2 2 # Bowel Movements 1 1 Laboratory Tests Test 01/04/19 05:35 White Blood Count 6.6 K/UL (4.8-10.8) Red Blood Count 2.66 M/UL (4.20-5.40) L Hemoglobin 7.6 G/DL (12.0-16.0) L Hematocrit 23.4 % (37.0-47.0) L Mean Corpuscular Volume 88 FL (80-99) Mean Corpuscular Hemoglobin 28.5 PG (27.0-31.0) Mean Corpuscular Hemoglobin Concent 32.3 G/DL (32.0-36.0) Red Cell Distribution Width 15.3 % (11.6-14.8) H Platelet Count 224 K/UL (150-450) Mean Platelet Volume 7.5 FL (6.5-10.1) Neutrophils (%) (Auto) % (45.0-75.0) Lymphocytes (%) (Auto) % (20.0-45.0) Monocytes (%) (Auto) % (1.0-10.0) Eosinophils (%) (Auto) % (0.0-3.0) Basophils (%) (Auto) % (0.0-2.0) Differential Total Cells Counted 100 Neutrophils % (Manual) 58 % (45-75) Lymphocytes % (Manual) 19 % (20-45) L Monocytes % (Manual) 9 % (1-10) Eosinophils % (Manual) 13 % (0-3) H Basophils % (Manual) 1 % (0-2) Band Neutrophils 0 % (0-8) Platelet Estimate Adequate Platelet Morphology Normal Hypochromasia 1+ Anisocytosis 1+ Sodium Level 139 MMOL/L (136-145) Potassium Level 3.1 MMOL/L (3.5-5.1) L Chloride Level 102 MMOL/L (98-107) Carbon Dioxide Level 26 MMOL/L (21-32) Anion Gap 11 mmol/L (5-15) Blood Urea Nitrogen 35 mg/dL (7-18) H Creatinine 4.2 MG/DL (0.55-1.30) H Estimat Glomerular Filtration Rate mL/min (>60) Glucose Level 308 MG/DL (74-106) #H Calcium Level 7.4 MG/DL (8.5-10.1) L Phosphorus Level 4.0 MG/DL (2.5-4.9) Magnesium Level 1.7 MG/DL (1.8-2.4) L Height (Feet): 5 Height (Inches): 5.00 Weight (Pounds): 118 General Appearance: WD/WN, no apparent distress, alert, thin Cardiovascular: normal rate Respiratory/Chest: normal breath sounds, no respiratory distress Abdominal Exam: normal bowel sounds, non tender, soft Extremities: normal range of motion, non-tender Emiliana Garibay NP Jan 04, 2019 12:25
--- NOTE | 2019-01-04 12:44 | Nephrology Progress Note ---
Assessment/Plan Problem List: (1) ESRD (end stage renal disease) on dialysis (2) Ischemic colon Assessment: S/P colectomy (3) Anemia Assessment: better (4) DM (diabetes mellitus) (5) HTN (hypertension) Assessment: uncontrolled Plan HD today increase Epogen once BP is better abxs follow labs Discussed with RN and Dr Turcios Increase Clonidine patch if BP remains high by tomorrow keep on Amlodipine Subjective Subjective ok Objective Objective Last 24 Hour Vital Signs Date Time Temp Pulse Resp B/P (MAP) Pulse Ox O2 Delivery O2 Flow Rate FiO2 01/04/19 12:32 69 183/66 01/04/19 09:08 74 172/79 01/04/19 09:00 Room Air 01/04/19 08:00 99.4 74 20 172/79 (110) 95 01/04/19 04:00 98.2 71 24 175/66 (102) 98 01/04/19 00:00 98.4 74 24 159/55 (89) 98 01/04/19 00:00 98.6 71 20 161/58 (92) 100 01/03/19 20:45 Room Air 01/03/19 20:00 98.6 71 20 161/58 (92) 100 01/03/19 19:47 171/64 01/03/19 16:00 98.3 73 18 171/64 (99) 98 01/03/19 13:42 78 174/67 Intake and Output 01/03/19 01/04/19 18:59 06:59 Intake Total 500 ml 110 ml Output Total 40 ml 40 ml Balance 460 ml 70 ml Intake Oral 500 ml IV Total 110 ml Drainage Total 40 ml 40 ml # Voids 2 2 # Bowel Movements 1 1 Laboratory Tests 01/04/19 05:35: White Blood Count 6.6, Red Blood Count 2.66L, Hemoglobin 7.6L, Hematocrit 23.4L , Mean Corpuscular Volume 88, Mean Corpuscular Hemoglobin 28.5, Mean Corpuscular Hemoglobin Concent 32.3, Red Cell Distribution Width 15.3H, Platelet Count 224, Mean Platelet Volume 7.5, Neutrophils (%) (Auto) , Lymphocytes (%) (Auto) , Monocytes (%) (Auto) , Eosinophils (%) (Auto) , Basophils (%) (Auto) , Differential Total Cells Counted 100, Neutrophils % ( Manual) 58, Lymphocytes % (Manual) 19L, Monocytes % (Manual) 9, Eosinophils % ( Manual) 13H, Basophils % (Manual) 1, Band Neutrophils 0, Platelet Estimate Adequate, Platelet Morphology Normal, Hypochromasia 1+, Anisocytosis 1+, Sodium Level 139, Potassium Level 3.1L, Chloride Level 102, Carbon Dioxide Level 26, Anion Gap 11, Blood Urea Nitrogen 35H, Creatinine 4.2H, Estimat Glomerular Filtration Rate , Glucose Level 308#H, Calcium Level 7.4L, Phosphorus Level 4.0 , Magnesium Level 1.7L Height (Feet): 5 Height (Inches): 5.00 Weight (Pounds): 118 Cardiovascular: normal rate Respiratory/Chest: lungs clear Extremities: other - no edema Modesto Romero MD Jan 04, 2019 12:43
--- NOTE | 2019-01-04 14:17 | Infectious Diseases Prog Note ---
Assessment/Plan Assessment/Plan ASSESSMENT AND PLAN: 1. sepsis, ischemic colitis, hematoma/fluid collection, ? aspiration pna/hcap vs atx, leukocytosis, fevers - zosyn - day # 6 abx post-op - s/p right colectomy and hematoma/fluid removal - monitor labs, cultures negative to date - clinically improved, sepsis and leukocytosis improved - continue tx per primary, surgery and consultants - chest x-ray - improved 2. The patient has end-stage renal disease, on hemodialysis. 3. The patient is status post right nephrectomy for renal ca per hx 4. Anemia. 5. Renal carcinoma requiring right nephrectomy. 6. Urology followup. 7. Hypertension. 8. Hyperlipidemia. 9. Congestive heart failure. 10. Diastolic dysfunction. 11. End-stage renal disease, on hemodialysis and dialysis line. 12. Sick sinus syndrome. 13. Pacemaker. 14. WILLIAMS. 15. Diabetes. 16. Hypertension. 17. Diabetes and hypertension, treatment per primary . 18. Dyslipidemia. 19. Continue treatment per primary consultants. 20. Notes and records were noted. 21. Orders were entered. 22. Family history is noncontributory. 23. Social history is negative. 24. MAR was noted. 25. Case was discussed with RN. 26. Allergies to sulfa drugs. Subjective Constitutional: Denies: fever HEENT: Denies: congestion Respiratory: Denies: shortness of breath Cardiovascular: Denies: chest pain Gastrointestinal/Abdominal: Denies: nausea, vomiting, diarrhea Genitourinary: Reports: other - no robledo Neurologic: Denies: headache Psychiatric: Denies: depression Skin: Denies: rash Hematologic: Denies: bleeding Musculoskeletal: Denies: pain Allergies: Coded Allergies: SULFA (SULFONAMIDE ANTIBIOTICS) (Verified Allergy, Unknown, 11/21/14) COPIED FROM UNCODED SECTION Objective Vital Signs Last 24 Hour Vital Signs Date Time Temp Pulse Resp B/P (MAP) Pulse Ox O2 Delivery O2 Flow Rate FiO2 01/04/19 12:32 69 183/66 01/04/19 12:00 99.4 69 20 183/66 (105) 97 01/04/19 09:08 74 172/79 01/04/19 09:00 Room Air 01/04/19 08:00 99.4 74 20 172/79 (110) 95 01/04/19 04:00 98.2 71 24 175/66 (102) 98 01/04/19 00:00 98.4 74 24 159/55 (89) 98 01/04/19 00:00 98.6 71 20 161/58 (92) 100 01/03/19 20:45 Room Air 01/03/19 20:00 98.6 71 20 161/58 (92) 100 01/03/19 19:47 171/64 01/03/19 16:00 98.3 73 18 171/64 (99) 98 Height (Feet): 5 Height (Inches): 5.00 Weight (Pounds): 118 General Appearance: no acute distress HEENT: normocephalic, atraumatic, anicteric, mucous membranes moist Respiratory/Chest: lungs clear, normal breath sounds, no respiratory distress, no accessory muscle use Cardiovascular: normal rate, regular rhythm, no gallop/murmur, no JVD Abdomen: normal bowel sounds, soft, non tender, no organomegaly, non distended Genitourinary: other - no robledo Extremities: no cyanosis Skin: no rash 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 Left lung base atelectasis/airspace disease and/or small pleural effusion, stable from prior study. 2. Tiny amount of free air under the right hemidiaphragm is improved from prior study. CT abdomen and pelvis: IMPRESSION: Portal venous gas and pneumatosis in the right hemicolon. Bowel ischemia not excluded. Status post right nephrectomy with right retroperitoneal fluid collection and a right anterolateral wall fluid collection likely postsurgical in nature. These may represent liquefied hematomas, seromas, or infected fluid such as abscess. Correlate clinically. Atherosclerotic vascular disease Cystic foci within the pelvis likely of ovarian origin as described above Moderate fecal retention. Degenerative changes of the spine. [facility] has communicated the preliminary results to the Emergency Department. Their findings are largely concordant with this report. Chest x-raty - 01/01/19 - NAD Microbiology Date/Time Source Procedure Growth Status 12/28/18 20:38 Blood Blood Culture - Final NO GROWTH AFTER 5 DAYS Complete 12/31/18 06:15 Sputum Induced Gram Stain - Final Complete 12/31/18 06:15 Sputum Induced Sputum Culture - Final NORMAL UPPER RESPIRATORY CINDI PRESENT Complete 12/28/18 09:30 Stool Clostridium difficile Toxin Assay - Final Complete 12/29/18 11:00 Abdominal Fluid Gram Stain - Final Complete 12/29/18 11:00 Abdominal Fluid Aerobic Culture - Final NO GROWTH Complete 12/29/18 11:00 Abdominal Fluid Anaerobic Culture - Final NO GROWTH Complete Laboratory Tests Test 01/04/19 05:35 White Blood Count 6.6 K/UL (4.8-10.8) Red Blood Count 2.66 M/UL (4.20-5.40) L Hemoglobin 7.6 G/DL (12.0-16.0) L Hematocrit 23.4 % (37.0-47.0) L Mean Corpuscular Volume 88 FL (80-99) Mean Corpuscular Hemoglobin 28.5 PG (27.0-31.0) Mean Corpuscular Hemoglobin Concent 32.3 G/DL (32.0-36.0) Red Cell Distribution Width 15.3 % (11.6-14.8) H Platelet Count 224 K/UL (150-450) Mean Platelet Volume 7.5 FL (6.5-10.1) Neutrophils (%) (Auto) % (45.0-75.0) Lymphocytes (%) (Auto) % (20.0-45.0) Monocytes (%) (Auto) % (1.0-10.0) Eosinophils (%) (Auto) % (0.0-3.0) Basophils (%) (Auto) % (0.0-2.0) Differential Total Cells Counted 100 Neutrophils % (Manual) 58 % (45-75) Lymphocytes % (Manual) 19 % (20-45) L Monocytes % (Manual) 9 % (1-10) Eosinophils % (Manual) 13 % (0-3) H Basophils % (Manual) 1 % (0-2) Band Neutrophils 0 % (0-8) Platelet Estimate Adequate Platelet Morphology Normal Hypochromasia 1+ Anisocytosis 1+ Sodium Level 139 MMOL/L (136-145) Potassium Level 3.1 MMOL/L (3.5-5.1) L Chloride Level 102 MMOL/L (98-107) Carbon Dioxide Level 26 MMOL/L (21-32) Anion Gap 11 mmol/L (5-15) Blood Urea Nitrogen 35 mg/dL (7-18) H Creatinine 4.2 MG/DL (0.55-1.30) H Estimat Glomerular Filtration Rate mL/min (>60) Glucose Level 308 MG/DL (74-106) #H Calcium Level 7.4 MG/DL (8.5-10.1) L Phosphorus Level 4.0 MG/DL (2.5-4.9) Magnesium Level 1.7 MG/DL (1.8-2.4) L Current Medications Medications (Trade) Dose Ordered Sig/Kranthi Route PRN Reason Start Time Stop Time Status Last Admin Dose Admin Amlodipine Besylate (Norvasc) 10 mg DAILY ORAL 01/04/19 11:30 02/03/19 11:29 01/04/19 12:32 Clonidine HCl (Catapres TTS-2) 1 patch QWEEK TDERMAL 01/03/19 18:00 02/02/19 17:59 01/03/19 19:47 Dextrose (Dextrose 50%) 25 ml Q30M PRN IV Hypoglycemia 12/31/18 17:45 01/26/19 22:44 Dextrose (Dextrose 50%) 50 ml Q30M PRN IV Hypoglycemia 12/31/18 17:45 01/26/19 22:44 Epoetin Skinny (Epoetin Skinny(ESRD on dialysis)) 2,000 unit SUBQ 01/01/19 21:00 01/31/19 20:59 01/03/19 21:26 Epoetin Skinny (Epoetin Skinny(ESRD on dialysis)) 3,000 unit SUBQ 01/01/19 21:00 01/31/19 20:59 01/03/19 21:26 Heparin Sodium (Porcine) (Heparin Sod 1000 units/ml 10ml) 500 unit ONCE PRN IV HD 01/04/19 06:00 01/04/19 23:59 Heparin Sodium (Porcine) (Heparin) 1,000 unit POSTHD PRN INJ POSTHD 01/04/19 06:00 01/04/19 23:59 Hydralazine HCl (Apresoline) 25 mg Q4H PRN ORAL For High Blood Pressure 01/01/19 18:15 01/31/19 18:14 01/03/19 12:23 Magnesium Sulfate 100 ml @ 100 mls/hr Q1H IVPB 01/04/19 12:30 01/04/19 14:29 01/04/19 13:46 Morphine Sulfate (Morphine Sulfate) 2 mg Q2H PRN IVP For Pain 12/31/18 18:00 01/05/19 17:59 01/01/19 05:20 Ondansetron HCl (Zofran) 4 mg Q6H PRN IVP Nausea & Vomiting 12/31/18 17:30 01/26/19 17:29 Piperacillin Sod/ Tazobactam Sod 2.25 gm/Dextrose 55 ml @ 110 mls/hr Q8HR IV 01/01/19 22:00 01/08/19 21:59 01/04/19 13:46 Sodium Chloride 1,000 ml @ 500 mls/hr Q2H PRN IVLG sbp<90 during hd 01/04/19 06:00 01/04/19 23:59 Trazodone HCl (Desyrel) 50 mg BEDTIME ORAL 01/01/19 21:00 01/31/19 20:59 01/03/19 21:26 Vitamin B Complex/ Vit C/Folic Acid (Nephrovite) 1 tab DAILY ORAL 01/01/19 09:00 01/27/19 13:14 01/04/19 09:07 Ignacia Bills MD Jan 04, 2019 14:17
[2019-01-04 15:11] LABS: BASOPHILS % (AUTO) 0.8 % (0.0-2.0); EOSINOPHILS % (AUTO) 8.6 % (0.0-3.0); HEMATOCRIT 26.3 % (37.0-47.0); HEMOGLOBIN 8.5 G/DL (12.0-16.0); LYMPHOCYTES % (AUTO) 20.2 % (20.0-45.0); MEAN CORPUSCULAR VOLUME 88 FL (80-99); MONOCYTES % (AUTO) 7.4 % (1.0-10.0); NEUTROPHILS % (AUTO) 62.9 % (45.0-75.0); PLATELET COUNT 235 K/UL (150-450); RED BLOOD COUNT 2.98 M/UL (4.20-5.40); RED CELL DISTRIBUTION WIDTH 15.2 % (11.6-14.8); WHITE BLOOD COUNT 6.1 K/UL (4.8-10.8)
--- NOTE | 2019-01-04 15:20 | General Progress Note ---
Progress Note Progress Note doing great tolerating diet comfortable. +bowel functio wound c/d/i drain w/ minimal output d/c drain d/c planning home tomorrow with home health f/u given for 01/10/19 at 10AM Tyrese Price Jan 04, 2019 15:20
[2019-01-04 15:40] LABS: ANION GAP 14 mmol/L (5-15); BLOOD UREA NITROGEN 35 mg/dL (7-18); CALCIUM 7.7 MG/DL (8.5-10.1); CARBON DIOXIDE 23 MMOL/L (21-32); CHLORIDE 99 MMOL/L (98-107); CREATININE 4.2 MG/DL (0.55-1.30); PHOSPHORUS 4.2 MG/DL (2.5-4.9); POTASSIUM 3.3 MMOL/L (3.5-5.1); SODIUM 136 MMOL/L (136-145)
[2019-01-04 16:00] VITALS: BP 159/59
[2019-01-04] MEDS ORDERED: Tubing IV Secondary IV ONE (17:07)
--- NOTE | 2019-01-04 17:23 | Internal Med Progress Note ---
Subjective Physician Name Oj Turcios Attending Physician Oj Turcios MD Current Medications Medications (Trade) Dose Ordered Sig/Kranthi Route PRN Reason Start Time Stop Time Status Last Admin Dose Admin Amlodipine Besylate (Norvasc) 10 mg DAILY ORAL 01/04/19 11:30 02/03/19 11:29 01/04/19 12:32 Clonidine HCl (Catapres TTS-2) 1 patch QWEEK TDERMAL 01/03/19 18:00 02/02/19 17:59 01/03/19 19:47 Dextrose (Dextrose 50%) 25 ml Q30M PRN IV Hypoglycemia 12/31/18 17:45 01/26/19 22:44 Dextrose (Dextrose 50%) 50 ml Q30M PRN IV Hypoglycemia 12/31/18 17:45 01/26/19 22:44 Epoetin Skinny (Epoetin Skinny(ESRD on dialysis)) 2,000 unit TUE-TUE-TUE SUBQ 01/01/19 21:00 01/31/19 20:59 01/03/19 21:26 Epoetin Skinny (Epoetin Skinny(ESRD on dialysis)) 3,000 unit TUE-TUE-TUE SUBQ 01/01/19 21:00 01/31/19 20:59 01/03/19 21:26 Heparin Sodium (Porcine) (Heparin Sod 1000 units/ml 10ml) 500 unit ONCE PRN IV HD 01/04/19 06:00 01/04/19 23:59 Heparin Sodium (Porcine) (Heparin) 1,000 unit POSTHD PRN INJ POSTHD 01/04/19 06:00 01/04/19 23:59 Hydralazine HCl (Apresoline) 25 mg Q4H PRN ORAL For High Blood Pressure 01/01/19 18:15 01/31/19 18:14 01/03/19 12:23 Morphine Sulfate (Morphine Sulfate) 2 mg Q2H PRN IVP For Pain 12/31/18 18:00 01/05/19 17:59 01/01/19 05:20 Ondansetron HCl (Zofran) 4 mg Q6H PRN IVP Nausea & Vomiting 12/31/18 17:30 01/26/19 17:29 Piperacillin Sod/ Tazobactam Sod 2.25 gm/Dextrose 55 ml @ 110 mls/hr Q8HR IV 01/01/19 22:00 01/08/19 21:59 01/04/19 13:46 Sodium Chloride 1,000 ml @ 500 mls/hr Q2H PRN IVLG sbp<90 during hd 01/04/19 06:00 01/04/19 23:59 Trazodone HCl (Desyrel) 50 mg BEDTIME ORAL 01/01/19 21:00 01/31/19 20:59 01/03/19 21:26 Vitamin B Complex/ Vit C/Folic Acid (Nephrovite) 1 tab DAILY ORAL 01/01/19 09:00 01/27/19 13:14 01/04/19 09:07 Allergies: Coded Allergies: SULFA (SULFONAMIDE ANTIBIOTICS) (Verified Allergy, Unknown, 11/21/14) COPIED FROM UNCODED SECTION Subjective tolerating clear liquid diet H/H stable min abdominal pain no CP or SOB 12 pt ROS neg except above positives Objective Last Vital Signs Date Time Temp Pulse Resp B/P (MAP) Pulse Ox O2 Delivery O2 Flow Rate FiO2 01/04/19 16:00 99.0 68 20 159/59 (92) 98 01/04/19 09:00 Room Air 01/02/19 20:14 21 01/01/19 09:39 10.0 Laboratory Tests Test 01/04/19 05:35 01/04/19 14:45 White Blood Count 6.6 K/UL (4.8-10.8) 6.1 K/UL (4.8-10.8) Red Blood Count 2.66 M/UL (4.20-5.40) L 2.98 M/UL (4.20-5.40) L Hemoglobin 7.6 G/DL (12.0-16.0) L 8.5 G/DL (12.0-16.0) L Hematocrit 23.4 % (37.0-47.0) L 26.3 % (37.0-47.0) L Mean Corpuscular Volume 88 FL (80-99) 88 FL (80-99) Mean Corpuscular Hemoglobin 28.5 PG (27.0-31.0) 28.7 PG (27.0-31.0) Mean Corpuscular Hemoglobin Concent 32.3 G/DL (32.0-36.0) 32.5 G/DL (32.0-36.0) Red Cell Distribution Width 15.3 % (11.6-14.8) H 15.2 % (11.6-14.8) H Platelet Count 224 K/UL (150-450) 235 K/UL (150-450) Mean Platelet Volume 7.5 FL (6.5-10.1) 7.5 FL (6.5-10.1) Neutrophils (%) (Auto) % (45.0-75.0) 62.9 % (45.0-75.0) Lymphocytes (%) (Auto) % (20.0-45.0) 20.2 % (20.0-45.0) Monocytes (%) (Auto) % (1.0-10.0) 7.4 % (1.0-10.0) Eosinophils (%) (Auto) % (0.0-3.0) 8.6 % (0.0-3.0) H Basophils (%) (Auto) % (0.0-2.0) 0.8 % (0.0-2.0) Differential Total Cells Counted 100 Neutrophils % (Manual) 58 % (45-75) Lymphocytes % (Manual) 19 % (20-45) L Monocytes % (Manual) 9 % (1-10) Eosinophils % (Manual) 13 % (0-3) H Basophils % (Manual) 1 % (0-2) Band Neutrophils 0 % (0-8) Platelet Estimate Adequate Platelet Morphology Normal Hypochromasia 1+ Anisocytosis 1+ Sodium Level 139 MMOL/L (136-145) 136 MMOL/L (136-145) Potassium Level 3.1 MMOL/L (3.5-5.1) L 3.3 MMOL/L (3.5-5.1) L Chloride Level 102 MMOL/L (98-107) 99 MMOL/L (98-107) Carbon Dioxide Level 26 MMOL/L (21-32) 23 MMOL/L (21-32) Anion Gap 11 mmol/L (5-15) 14 mmol/L (5-15) Blood Urea Nitrogen 35 mg/dL (7-18) H 35 mg/dL (7-18) H Creatinine 4.2 MG/DL (0.55-1.30) H 4.2 MG/DL (0.55-1.30) H Estimat Glomerular Filtration Rate mL/min (>60) mL/min (>60) Glucose Level 308 MG/DL (74-106) #H 429 MG/DL (74-106) #H Calcium Level 7.4 MG/DL (8.5-10.1) L 7.7 MG/DL (8.5-10.1) L Phosphorus Level 4.0 MG/DL (2.5-4.9) 4.2 MG/DL (2.5-4.9) Magnesium Level 1.7 MG/DL (1.8-2.4) L Intake and Output 01/03/19 01/04/19 19:00 07:00 Intake Total 500 ml 110 ml Output Total 40 ml 40 ml Balance 460 ml 70 ml Intake Oral 500 ml IV Total 110 ml Drainage Total 40 ml 40 ml # Voids 2 2 # Bowel Movements 1 1 Objective gen - NAD. awake. HEENT - NC/AT. CVS - RRR. Nl s1,2 Lungs - CTA b/l Abd - covered with dressing. c/d/i. R LULA drain Ext - no c/c/e Assessment/Plan Assessment/Plan ASSESSMENT: 1. Ischemic bowel s/p diagnostic laparoscopy, exploratory laparotomy, right colectomy, drainage of abdominal wall fluid collection, evacuation of retroperitoneal hematoma (12/29) 2. Elevated lipase-may be falsely elevated lipase given the patient is not very tender over epigastric region versus acute pancreatitis. 3. Abdominal pain possibly also related to postsurgical abdominal infection. 4. End-stage renal disease, on hemodialysis. 5. Recent right kidney nephrectomy for renal cell carcinoma. 6. Diabetes. 7. Hypertension. 8. Hyperlipidemia. 9. pneumatosis which may be related to infectious colitis vs ischemic bowel PLAN: 1. Medsurg 2. IVF - off 3. Antibiotics, Zosyn and Vanco IV 4. ID recs appreciated 5. Surgery recs appreciated; 6. Nephrology consulted for hemodialysis orders. 7. Diet - clears 8. Morphine 2mg IV Q 2hrs prn pain 9. cw amlodipine 10mg; cw clonidine patch 0.1 ; dc procardia DC home tomorrow DVT prophylaxis, SCDs. 9. Full Code. Oj Turcios MD Jan 04, 2019 17:23
[2019-01-04] MEDS ORDERED: HydrALAZINE 10mg Tab ORAL PRN (17:30)
[2019-01-04 20:00] VITALS: BP 156/62
[2019-01-04] MEDS ORDERED: Dyna-Hex 2% Top Sol 2oz TOPIC SCH (20:00)
[2019-01-04] MEDS: TraZODone 50mg tab ORAL SCH (21:38)
[2019-01-04] MEDS: NovoLOG Insulin Flexpen SUBQ SCH (21:40)
[2019-01-05] VITALS: BP 137/62
[2019-01-05 04:00] VITALS: BP 131/54
[2019-01-05] MEDS: Piperacillin/Tazobactam 2.25 GM in D5W 55 ML IV SCH ×2 (05:07→14:54)
[2019-01-05] MEDS: NovoLOG Insulin Flexpen SUBQ SCH ×3 (06:14→16:47)
[2019-01-05 08:00] VITALS: BP 135/55
[2019-01-05] MEDS: Nephrovite tab (Rena-Vite) ORAL SCH (09:24)
--- NOTE | 2019-01-05 11:49 | Urology Progress Note ---
Assessment/Plan Assessment/Plan 1. Abdominal pain hx. 2. Status post recent right nephrectomy, presumably for renal cell carcinoma. 3. Chronic kidney disease. 4. Proteinuria. 5. Urinary frequency history. 6. Rule out neurogenic bladder. 7. Hematuria. 8. POD # 6 ,exp lap monitor clinically hematoma in right renal fossa and abdominal wall evacuated abx as ordered HD per nephrology removal of LULA drain per Dr. Price Subjective Allergies: Coded Allergies: SULFA (SULFONAMIDE ANTIBIOTICS) (Verified Allergy, Unknown, 11/21/14) COPIED FROM UNCODED SECTION Subjective all noted, s/p exp lap and colectomy 12/29 right flank LULA drain, 60 cc output in 24 hours per nurse report Objective Last 24 Hour Vital Signs Date Time Temp Pulse Resp B/P (MAP) Pulse Ox O2 Delivery O2 Flow Rate FiO2 01/05/19 09:24 75 135/55 01/05/19 04:00 98.8 75 18 131/54 (79) 99 01/05/19 00:00 98.5 70 18 137/62 (87) 95 01/04/19 21:00 Room Air 01/04/19 20:00 98.2 77 18 156/62 (93) 100 01/04/19 16:00 99.0 68 20 159/59 (92) 98 01/04/19 12:32 69 183/66 01/04/19 12:00 99.4 69 20 183/66 (105) 97 Intake and Output 01/04/19 01/05/19 18:59 06:59 Intake Total 540 ml 230 ml Output Total 1552 ml Balance -1012 ml 230 ml Intake Oral 540 ml 120 ml IV Total 110 ml Output Urine Total 1500 ml Stool Total 2 ml Drainage Total 50 ml # Bowel Movements 2 2 Microbiology Date/Time Source Procedure Growth Status 12/28/18 20:38 Blood Blood Culture - Final NO GROWTH AFTER 5 DAYS Complete 12/31/18 06:15 Sputum Induced Gram Stain - Final Complete 12/31/18 06:15 Sputum Induced Sputum Culture - Final NORMAL UPPER RESPIRATORY CINDI PRESENT Complete 12/28/18 09:30 Stool Clostridium difficile Toxin Assay - Final Complete 12/29/18 11:00 Abdominal Fluid Gram Stain - Final Complete 12/29/18 11:00 Abdominal Fluid Aerobic Culture - Final NO GROWTH Complete 12/29/18 11:00 Abdominal Fluid Anaerobic Culture - Final NO GROWTH Complete Current Medications Medications (Trade) Dose Ordered Sig/Kranthi Route PRN Reason Start Time Stop Time Status Last Admin Dose Admin Amlodipine Besylate (Norvasc) 10 mg DAILY ORAL 01/04/19 11:30 02/03/19 11:29 01/05/19 09:24 Chlorhexidine Gluconate (Ivette-Hex 2%) 1 applic DAILY@2000 TOPIC 01/04/19 20:00 02/03/19 19:59 01/04/19 21:38 Clonidine HCl (Catapres TTS-2) 1 patch QWEEK TDERMAL 01/03/19 18:00 02/02/19 17:59 01/03/19 19:47 Dextrose (Dextrose 50%) 25 ml Q30M PRN IV Hypoglycemia 01/04/19 17:30 02/03/19 17:29 Dextrose (Dextrose 50%) 50 ml Q30M PRN IV Hypoglycemia 01/04/19 17:30 02/03/19 17:29 Epoetin Skinny (Epoetin Skinny(ESRD on dialysis)) 2,000 unit TUE-TUE-TUE SUBQ 01/01/19 21:00 01/31/19 20:59 01/03/19 21:26 Epoetin Skinny (Epoetin Skinny(ESRD on dialysis)) 3,000 unit TUE-TUE-TUE SUBQ 01/01/19 21:00 01/31/19 20:59 01/03/19 21:26 Hydralazine HCl (Apresoline) 10 mg Q6H PRN ORAL SBP > 160 01/04/19 17:30 02/03/19 17:29 Hydralazine HCl (Apresoline) 25 mg Q4H PRN ORAL For High Blood Pressure 01/01/19 18:15 01/31/19 18:14 01/03/19 12:23 Insulin Aspart (NovoLOG) BEFORE MEALS AND HS SUBQ 01/04/19 21:00 02/03/19 20:59 01/05/19 11:43 Morphine Sulfate (Morphine Sulfate) 2 mg Q2H PRN IVP For Pain 12/31/18 18:00 01/05/19 17:59 01/01/19 05:20 Ondansetron HCl (Zofran) 4 mg Q6H PRN IVP Nausea & Vomiting 12/31/18 17:30 01/26/19 17:29 Piperacillin Sod/ Tazobactam Sod 2.25 gm/Dextrose 55 ml @ 110 mls/hr Q8HR IV 01/01/19 22:00 01/08/19 21:59 01/05/19 05:07 Trazodone HCl (Desyrel) 50 mg BEDTIME ORAL 01/01/19 21:00 01/31/19 20:59 01/04/19 21:38 Vitamin B Complex/ Vit C/Folic Acid (Nephrovite) 1 tab DAILY ORAL 01/01/19 09:00 01/27/19 13:14 01/05/19 09:24 Laboratory Tests 01/04/19 14:45: White Blood Count 6.1, Red Blood Count 2.98L, Hemoglobin 8.5L, Hematocrit 26.3L , Mean Corpuscular Volume 88, Mean Corpuscular Hemoglobin 28.7, Mean Corpuscular Hemoglobin Concent 32.5, Red Cell Distribution Width 15.2H, Platelet Count 235, Mean Platelet Volume 7.5, Neutrophils (%) (Auto) 62.9, Lymphocytes (%) (Auto) 20.2, Monocytes (%) (Auto) 7.4, Eosinophils (%) (Auto) 8.6H, Basophils (%) (Auto) 0.8, Sodium Level 136, Potassium Level 3.3L, Chloride Level 99, Carbon Dioxide Level 23, Anion Gap 14, Blood Urea Nitrogen 35H, Creatinine 4.2H, Estimat Glomerular Filtration Rate , Glucose Level 429#H, Calcium Level 7.7L, Phosphorus Level 4.2 Height (Feet): 5 Height (Inches): 5.00 Weight (Pounds): 116 Objective exam stable robledo indwelling, grossly yellow urine LULA drain in right flank CT noted Kvng Epperson MD Jan 05, 2019 11:49
[2019-01-05 12:00] VITALS: BP 133/54
--- NOTE | 2019-01-05 12:07 | GI Progress Note ---
Assessment/Plan Problems: (1) Ischemic colon ICD Codes: K55.9 - Vascular disorder of intestine, unspecified SNOMED: 62557032 (2) Diarrhea ICD Codes: R19.7 - Diarrhea, unspecified SNOMED: 27836833 (3) Anemia ICD Codes: D64.9 - Anemia, unspecified SNOMED: 814323921 (4) Pancreatitis ICD Codes: K85.90 - Acute pancreatitis without necrosis or infection, unspecified SNOMED: 33610715 (5) Ischemic colitis ICD Codes: K55.9 - Vascular disorder of intestine, unspecified SNOMED: 80827485 (6) Post-operative infection ICD Codes: T81.40XA - Infection following a procedure, unspecified, initial encounter SNOMED: 46336793, 050700136 Status: stable Status Narrative Discussed with Dr. Nice. Assessment/Plan Assessment - ischemic colitis - s/p partial colectomy - s/p nephrectomy - ESRD/HD - HTN Recommendations - post op care - PT evaluation - follow labs - feeds when OK with surgery - f/u pathology -Electrolyte correction - prn transfusions - PPI The patient was seen and examined at bedside and all new and available data was reviewed in the patients chart. I agree with the above findings, impression and plan. (Patient seen earlier today. Signature stamp does not reflect patient encounter time.). - Gianni Nice MD Subjective Gastrointestinal/Abdominal: Reports: no symptoms Subjective Abdominal pain improved Objective Last 24 Hour Vital Signs Date Time Temp Pulse Resp B/P (MAP) Pulse Ox O2 Delivery O2 Flow Rate FiO2 01/05/19 09:24 75 135/55 01/05/19 04:00 98.8 75 18 131/54 (79) 99 01/05/19 00:00 98.5 70 18 137/62 (87) 95 01/04/19 21:00 Room Air 01/04/19 20:00 98.2 77 18 156/62 (93) 100 01/04/19 16:00 99.0 68 20 159/59 (92) 98 01/04/19 12:32 69 183/66 Intake and Output 01/04/19 01/05/19 18:59 06:59 Intake Total 540 ml 230 ml Output Total 1552 ml Balance -1012 ml 230 ml Intake Oral 540 ml 120 ml IV Total 110 ml Output Urine Total 1500 ml Stool Total 2 ml Drainage Total 50 ml # Bowel Movements 2 2 Laboratory Tests Test 01/04/19 14:45 White Blood Count 6.1 K/UL (4.8-10.8) Red Blood Count 2.98 M/UL (4.20-5.40) L Hemoglobin 8.5 G/DL (12.0-16.0) L Hematocrit 26.3 % (37.0-47.0) L Mean Corpuscular Volume 88 FL (80-99) Mean Corpuscular Hemoglobin 28.7 PG (27.0-31.0) Mean Corpuscular Hemoglobin Concent 32.5 G/DL (32.0-36.0) Red Cell Distribution Width 15.2 % (11.6-14.8) H Platelet Count 235 K/UL (150-450) Mean Platelet Volume 7.5 FL (6.5-10.1) Neutrophils (%) (Auto) 62.9 % (45.0-75.0) Lymphocytes (%) (Auto) 20.2 % (20.0-45.0) Monocytes (%) (Auto) 7.4 % (1.0-10.0) Eosinophils (%) (Auto) 8.6 % (0.0-3.0) H Basophils (%) (Auto) 0.8 % (0.0-2.0) Sodium Level 136 MMOL/L (136-145) Potassium Level 3.3 MMOL/L (3.5-5.1) L Chloride Level 99 MMOL/L (98-107) Carbon Dioxide Level 23 MMOL/L (21-32) Anion Gap 14 mmol/L (5-15) Blood Urea Nitrogen 35 mg/dL (7-18) H Creatinine 4.2 MG/DL (0.55-1.30) H Estimat Glomerular Filtration Rate mL/min (>60) Glucose Level 429 MG/DL (74-106) #H Calcium Level 7.7 MG/DL (8.5-10.1) L Phosphorus Level 4.2 MG/DL (2.5-4.9) Height (Feet): 5 Height (Inches): 5.00 Weight (Pounds): 116 General Appearance: WD/WN, no apparent distress, alert Cardiovascular: normal rate Respiratory/Chest: normal breath sounds, no respiratory distress Abdominal Exam: normal bowel sounds, non tender, soft Extremities: normal range of motion, non-tender Emiliana Garibay NP Jan 05, 2019 12:07
--- NOTE | 2019-01-05 14:40 | Nephrology Progress Note ---
Assessment/Plan Problem List: (1) ESRD (end stage renal disease) on dialysis (2) Ischemic colon Assessment: S/P colectomy (3) Anemia Assessment: better (4) DM (diabetes mellitus) (5) HTN (hypertension) Assessment: ok Plan HD tomorrow increase Epogen abxs follow labs Subjective Subjective ok Objective Objective Last 24 Hour Vital Signs Date Time Temp Pulse Resp B/P (MAP) Pulse Ox O2 Delivery O2 Flow Rate FiO2 01/05/19 09:24 75 135/55 01/05/19 09:00 Room Air 01/05/19 04:00 98.8 75 18 131/54 (79) 99 01/05/19 00:00 98.5 70 18 137/62 (87) 95 01/04/19 21:00 Room Air 01/04/19 20:00 98.2 77 18 156/62 (93) 100 01/04/19 16:00 99.0 68 20 159/59 (92) 98 Intake and Output 01/04/19 01/05/19 18:59 06:59 Intake Total 540 ml 230 ml Output Total 1552 ml Balance -1012 ml 230 ml Intake Oral 540 ml 120 ml IV Total 110 ml Output Urine Total 1500 ml Stool Total 2 ml Drainage Total 50 ml # Bowel Movements 2 2 Laboratory Tests 01/04/19 14:45: White Blood Count 6.1, Red Blood Count 2.98L, Hemoglobin 8.5L, Hematocrit 26.3L , Mean Corpuscular Volume 88, Mean Corpuscular Hemoglobin 28.7, Mean Corpuscular Hemoglobin Concent 32.5, Red Cell Distribution Width 15.2H, Platelet Count 235, Mean Platelet Volume 7.5, Neutrophils (%) (Auto) 62.9, Lymphocytes (%) (Auto) 20.2, Monocytes (%) (Auto) 7.4, Eosinophils (%) (Auto) 8.6H, Basophils (%) (Auto) 0.8, Sodium Level 136, Potassium Level 3.3L, Chloride Level 99, Carbon Dioxide Level 23, Anion Gap 14, Blood Urea Nitrogen 35H, Creatinine 4.2H, Estimat Glomerular Filtration Rate , Glucose Level 429#H, Calcium Level 7.7L, Phosphorus Level 4.2 Height (Feet): 5 Height (Inches): 5.00 Weight (Pounds): 116 Cardiovascular: normal rate Respiratory/Chest: lungs clear Extremities: trace edema, other Modesto Romero MD Jan 05, 2019 14:40
[2019-01-05 16:00] VITALS: BP 143/53
--- NOTE | 2019-01-05 16:18 | Infectious Diseases Prog Note ---
Assessment/Plan Assessment/Plan ASSESSMENT AND PLAN: 1. sepsis, ischemic colitis, hematoma/fluid collection, ? aspiration pna/hcap vs atx, leukocytosis, fevers - zosyn - day # 7 abx post-op - finish course - s/p right colectomy and hematoma/fluid removal - monitor labs, cultures negative to date - clinically improved, sepsis and leukocytosis improved - continue tx per primary, surgery and consultants - chest x-ray - improved 2. The patient has end-stage renal disease, on hemodialysis. 3. The patient is status post right nephrectomy for renal ca per hx 4. Anemia. 5. Renal carcinoma requiring right nephrectomy. 6. Urology followup. 7. Hypertension. 8. Hyperlipidemia. 9. Congestive heart failure. 10. Diastolic dysfunction. 11. End-stage renal disease, on hemodialysis and dialysis line. 12. Sick sinus syndrome. 13. Pacemaker. 14. WILLIAMS. 15. Diabetes. 16. Hypertension. 17. Diabetes and hypertension, treatment per primary . 18. Dyslipidemia. 19. Continue treatment per primary consultants. 20. Notes and records were noted. 21. Orders were entered. 22. Family history is noncontributory. 23. Social history is negative. 24. MAR was noted. 25. Case was discussed with RN. 26. Allergies to sulfa drugs. Subjective Constitutional: Denies: fever HEENT: Denies: congestion Respiratory: Denies: shortness of breath Cardiovascular: Denies: chest pain Gastrointestinal/Abdominal: Denies: nausea, vomiting, diarrhea Genitourinary: Reports: other - no robledo Neurologic: Denies: headache Psychiatric: Denies: depression Skin: Denies: rash Hematologic: Denies: bleeding Musculoskeletal: Reports: pain - controlled Allergies: Coded Allergies: SULFA (SULFONAMIDE ANTIBIOTICS) (Verified Allergy, Unknown, 11/21/14) COPIED FROM UNCODED SECTION Objective Vital Signs Last 24 Hour Vital Signs Date Time Temp Pulse Resp B/P (MAP) Pulse Ox O2 Delivery O2 Flow Rate FiO2 01/05/19 12:00 97.9 72 20 133/54 (80) 97 01/05/19 09:24 75 135/55 01/05/19 09:00 Room Air 01/05/19 08:00 97.8 75 14 135/55 (81) 95 01/05/19 04:00 98.8 75 18 131/54 (79) 99 01/05/19 00:00 98.5 70 18 137/62 (87) 95 01/04/19 21:00 Room Air 01/04/19 20:00 98.2 77 18 156/62 (93) 100 Height (Feet): 5 Height (Inches): 5.00 Weight (Pounds): 116 General Appearance: WD/WN HEENT: normocephalic, atraumatic, anicteric, mucous membranes moist Respiratory/Chest: lungs clear, normal breath sounds, no respiratory distress, no accessory muscle use Cardiovascular: normal rate, regular rhythm, no gallop/murmur, no JVD Abdomen: normal bowel sounds, soft, non tender, no organomegaly, non distended Genitourinary: other - no Extremities: no cyanosis Skin: no rash Neurologic/Psychiatric: ham passer II-XII grossly normal, alert, responsive Lymphatic: no neck adenopathy Musculoskeletal: no effusion Objective Chest x-ray - Chest x-ray - 12/30/18 IMPRESSION: 1. Left lung base atelectasis/airspace disease and/or small pleural effusion, stable from prior study. 2. Tiny amount of free air under the right hemidiaphragm is improved from prior study. CT abdomen and pelvis: IMPRESSION: Portal venous gas and pneumatosis in the right hemicolon. Bowel ischemia not excluded. Status post right nephrectomy with right retroperitoneal fluid collection and a right anterolateral wall fluid collection likely postsurgical in nature. These may represent liquefied hematomas, seromas, or infected fluid such as abscess. Correlate clinically. Atherosclerotic vascular disease Cystic foci within the pelvis likely of ovarian origin as described above Moderate fecal retention. Degenerative changes of the spine. [facility] has communicated the preliminary results to the Emergency Department. Their findings are largely concordant with this report. Chest x-raty - 01/01/19 - NAD Microbiology Date/Time Source Procedure Growth Status 12/28/18 20:38 Blood Blood Culture - Final NO GROWTH AFTER 5 DAYS Complete 12/31/18 06:15 Sputum Induced Gram Stain - Final Complete 12/31/18 06:15 Sputum Induced Sputum Culture - Final NORMAL UPPER RESPIRATORY CINDI PRESENT Complete 12/28/18 09:30 Stool Clostridium difficile Toxin Assay - Final Complete 12/29/18 11:00 Abdominal Fluid Gram Stain - Final Complete 12/29/18 11:00 Abdominal Fluid Aerobic Culture - Final NO GROWTH Complete 12/29/18 11:00 Abdominal Fluid Anaerobic Culture - Final NO GROWTH Complete Labs Test 01/03/19 06:10 01/04/19 05:35 01/04/19 14:45 White Blood Count 7.0 K/UL (4.8-10.8) 6.6 K/UL (4.8-10.8) 6.1 K/UL (4.8-10.8) Red Blood Count 2.72 M/UL (4.20-5.40) 2.66 M/UL (4.20-5.40) 2.98 M/UL (4.20-5.40) Hemoglobin 7.8 G/DL (12.0-16.0) 7.6 G/DL (12.0-16.0) 8.5 G/DL (12.0-16.0) Hematocrit 24.5 % (37.0-47.0) 23.4 % (37.0-47.0) 26.3 % (37.0-47.0) Mean Corpuscular Volume 90 FL (80-99) 88 FL (80-99) 88 FL (80-99) Mean Corpuscular Hemoglobin 28.7 PG (27.0-31.0) 28.5 PG (27.0-31.0) 28.7 PG (27.0-31.0) Mean Corpuscular Hemoglobin Concent 31.9 G/DL (32.0-36.0) 32.3 G/DL (32.0-36.0) 32.5 G/DL (32.0-36.0) Red Cell Distribution Width 15.6 % (11.6-14.8) 15.3 % (11.6-14.8) 15.2 % (11.6-14.8) Platelet Count 214 K/UL (150-450) 224 K/UL (150-450) 235 K/UL (150-450) Mean Platelet Volume 7.6 FL (6.5-10.1) 7.5 FL (6.5-10.1) 7.5 FL (6.5-10.1) Neutrophils (%) (Auto) % (45.0-75.0) % (45.0-75.0) 62.9 % (45.0-75.0) Lymphocytes (%) (Auto) % (20.0-45.0) % (20.0-45.0) 20.2 % (20.0-45.0) Monocytes (%) (Auto) % (1.0-10.0) % (1.0-10.0) 7.4 % (1.0-10.0) Eosinophils (%) (Auto) % (0.0-3.0) % (0.0-3.0) 8.6 % (0.0-3.0) Basophils (%) (Auto) % (0.0-2.0) % (0.0-2.0) 0.8 % (0.0-2.0) Differential Total Cells Counted 100 100 Neutrophils % (Manual) 58 % (45-75) 58 % (45-75) Lymphocytes % (Manual) 19 % (20-45) 19 % (20-45) Monocytes % (Manual) 14 % (1-10) 9 % (1-10) Eosinophils % (Manual) 8 % (0-3) 13 % (0-3) Basophils % (Manual) 1 % (0-2) 1 % (0-2) Band Neutrophils 0 % (0-8) 0 % (0-8) Reactive Lymphocytes 1+ Platelet Estimate Adequate Adequate Platelet Morphology Normal Normal Anisocytosis 1+ 1+ Ovalocytes 1+ Sodium Level 141 MMOL/L (136-145) 139 MMOL/L (136-145) 136 MMOL/L (136-145) Potassium Level 3.3 MMOL/L (3.5-5.1) 3.1 MMOL/L (3.5-5.1) 3.3 MMOL/L (3.5-5.1) Chloride Level 102 MMOL/L (98-107) 102 MMOL/L (98-107) 99 MMOL/L (98-107) Carbon Dioxide Level 25 MMOL/L (21-32) 26 MMOL/L (21-32) 23 MMOL/L (21-32) Anion Gap 14 mmol/L (5-15) 11 mmol/L (5-15) 14 mmol/L (5-15) Blood Urea Nitrogen 34 mg/dL (7-18) 35 mg/dL (7-18) 35 mg/dL (7-18) Creatinine 3.9 MG/DL (0.55-1.30) 4.2 MG/DL (0.55-1.30) 4.2 MG/DL (0.55-1.30) Estimat Glomerular Filtration Rate mL/min (>60) mL/min (>60) mL/min (>60) Glucose Level 191 MG/DL (74-106) 308 MG/DL (74-106) 429 MG/DL (74-106) Calcium Level 7.8 MG/DL (8.5-10.1) 7.4 MG/DL (8.5-10.1) 7.7 MG/DL (8.5-10.1) Hypochromasia 1+ Phosphorus Level 4.0 MG/DL (2.5-4.9) 4.2 MG/DL (2.5-4.9) Magnesium Level 1.7 MG/DL (1.8-2.4) Current Medications Medications (Trade) Dose Ordered Sig/Kranthi Route PRN Reason Start Time Stop Time Status Last Admin Dose Admin Amlodipine Besylate (Norvasc) 10 mg DAILY ORAL 01/04/19 11:30 02/03/19 11:29 01/05/19 09:24 Chlorhexidine Gluconate (Ivette-Hex 2%) 1 applic DAILY@2000 TOPIC 01/04/19 20:00 02/03/19 19:59 01/04/19 21:38 Clonidine HCl (Catapres TTS-2) 1 patch QWEEK TDERMAL 01/03/19 18:00 02/02/19 17:59 01/03/19 19:47 Dextrose (Dextrose 50%) 25 ml Q30M PRN IV Hypoglycemia 01/04/19 17:30 02/03/19 17:29 Dextrose (Dextrose 50%) 50 ml Q30M PRN IV Hypoglycemia 01/04/19 17:30 02/03/19 17:29 Epoetin Skinny (Epoetin Skinny(ESRD on dialysis)) 6,000 unit TUE-TUE-TUE SUBQ 01/05/19 21:00 02/04/19 20:59 Heparin Sodium (Porcine) (Heparin Sod 1000 units/ml 10ml) 500 unit ONCE PRN IV hd 01/06/19 06:00 01/06/19 23:59 Hydralazine HCl (Apresoline) 10 mg Q6H PRN ORAL SBP > 160 01/04/19 17:30 02/03/19 17:29 Hydralazine HCl (Apresoline) 25 mg Q4H PRN ORAL For High Blood Pressure 01/01/19 18:15 01/31/19 18:14 01/03/19 12:23 Insulin Aspart (NovoLOG) BEFORE MEALS AND HS SUBQ 01/04/19 21:00 02/03/19 20:59 01/05/19 11:43 Morphine Sulfate (Morphine Sulfate) 2 mg Q2H PRN IVP For Pain 12/31/18 18:00 01/05/19 17:59 01/01/19 05:20 Ondansetron HCl (Zofran) 4 mg Q6H PRN IVP Nausea & Vomiting 12/31/18 17:30 01/26/19 17:29 Piperacillin Sod/ Tazobactam Sod 2.25 gm/Dextrose 55 ml @ 110 mls/hr Q8HR IV 01/01/19 22:00 01/08/19 21:59 01/05/19 14:54 Sodium Chloride 1,000 ml @ 500 mls/hr Q2H PRN IVLG sbp<90 during hd 01/06/19 06:00 01/06/19 23:59 Trazodone HCl (Desyrel) 50 mg BEDTIME ORAL 01/01/19 21:00 01/31/19 20:59 01/04/19 21:38 Vitamin B Complex/ Vit C/Folic Acid (Nephrovite) 1 tab DAILY ORAL 01/01/19 09:00 01/27/19 13:14 01/05/19 09:24 Ignacia Bills MD Jan 05, 2019 16:18
[2019-01-05] MEDS ORDERED: NORVASC10 MG ORAL (18:53)
[2019-01-05] MEDS ORDERED: CATAPRES-TTS-21 EA TDERMAL (18:53)
--- NOTE | 2019-01-05 18:54 | Discharge Instructions ---
Discharge Instructions Discharge Instructions Follow up with: DR MARION HORVATH in 1 WK; SEE PCP in 1 WK Call MD/Return to Hospital if: FEVERS, WORSENING ABDOMINAL PAIN, VOMITING Diet: regular Resume Normal Activity?: Yes For Congestive Heart Failure Reminder Report to your physician any weight gain of 5 pounds or more in one week. Oj Turcios MD Jan 05, 2019 18:54
--- NOTE | 2019-01-05 18:55 | Discharge Instructions ---
Discharge Instructions Discharge Instructions Follow up with: JOHN HORVATH Diet: soft Activity: resume normal activities For Congestive Heart Failure Reminder Report to your physician any weight gain of 5 pounds or more in one week. Oj Turcios MD Jan 05, 2019 18:55
--- NOTE | 2019-01-05 19:01 | Discharge Summary ---
Discharge Summary Hospital Course Date of Admission Dec 27, 2018 at 18:37 Date of Discharge Admitting Diagnosis pancreatitis HPI Lucero Peña is a 83 year old female who was admitted on Dec 27, 2018 at 18: 37 for ischemic bowel # [id number] Discharge Medications New Medications: Amlodipine Besylate (Norvasc) 10 Mg Tablet 10 MG ORAL DAILY for 30 Days, TAB Clonidine HCl (Catapres-Tts 2) 1 Each Patch.tdwk 1 PATCH TDERMAL QWEEK for 30 Days, PATCH Discharge Condition Upon Discharge: stable Discharge Disposition Patient was discharged to HOME WITH HOME HEALTH Discharge Instructions Discharge Instructions Follow up with: JOHN Bill MD/Return to Hospital if: FEVERS, WORSENING ABDOMINAL PAIN, VOMITING Activity: resume normal activities Oj Turcios MD Jan 05, 2019 19:01
[2019-01-05 20:00] VITALS: BP 138/42
[2019-01-05] MEDS ORDERED: Tubing IV Secondary IV ONE (20:14)
[2019-01-05] MEDS ORDERED: Epoetin Alfa(ESRD on dialysis)3000 units/ml vial SUBQ SCH ×2 (21:00)
[2019-01-06] MEDS ORDERED: Heparin Sod 1000 units/ml 10ml IV PRN (06:00)
--- NOTE | 2019-01-06 06:45 | Discharge Summary ---
DATE OF ADMISSION: 12/27/2018 DATE OF DISCHARGE: 01/05/2019 REASON FOR ADMISSION: Abdominal pain. PROCEDURES DONE: Diagnostic laparoscopy, exploratory laparotomy, right colectomy, drainage of abdominal wall fluid collection, evacuation of retroperitoneal hematoma, peritoneal and retroperitoneal right drain placement done on 12/29/2018. BRIEF HOSPITAL COURSE SUMMARY: This is a 83-year-old female with history of hypertension, hyperlipidemia, CHF with diastolic dysfunction, sick sinus syndrome status post pacemaker placement, renal cell carcinoma of the right kidney status post nephrectomy who presents to the emergency room with abdominal pain, nausea, and vomiting. The patient had abdominal CT showing pneumatosis of the right colon. She had a colonoscopy done on 12/29/2018 showing ischemic colitis. The patient was immediately taken to the operating room for ischemic right colon and hepatic flexure and underwent a right colectomy as well as drainage of abdominal wall fluid collection which appears to be a seroma. The patient did very well postoperatively and was not on pressors. She was in intensive care unit and then transferred to the med/surg. Her drains were removed. She is tolerating a diet and having bowel movements. The patient is also ambulating. Her pain is controlled and she is not having any nausea or vomiting. The patient is stable for discharge. DISCHARGE CONDITION: Stable. DISCHARGE INSTRUCTIONS: The patient to follow up with Dr. Tyrese Price within one week and follow up with PCP within one week. DISCHARGE DIAGNOSES: 1. Ischemic bowel status post right colectomy. 2. Elevated lipase likely secondary to ischemic bowel. 3. End-stage renal disease, on hemodialysis. 4. Right kidney nephrectomy for renal cell carcinoma done on December 2018. 5. Diabetes. 6. Hypertension. 7. Hyperlipidemia. Oj Turcios MD DR: Darron JOB#: [id number] CC:
== END 2019-01-05 20:15 | disposition home health service (06) | DRG 710 ==
LOC: EDBD 16:52 → EMR 17:26 → CMPBEDREQ 18:15 → 3E 18:37 → ICU 12-29 10:21 → 3E 12-31 17:20
PROC: 5A1D70Z Performance of Urinary Filtration, Intermittent, Less than 6 Hours Per Day (ICD-10-PCS; 2018-12-28)
PROC: 0DBN8ZX Excision of Sigmoid Colon, Via Natural or Artificial Opening Endoscopic, Diagnostic (ICD-10-PCS; 2018-12-29)
PROC: 0DBK8ZX Excision of Ascending Colon, Via Natural or Artificial Opening Endoscopic, Diagnostic (ICD-10-PCS; 2018-12-29)
PROC: 0WCG0ZZ Extirpation of Matter from Peritoneal Cavity, Open Approach (ICD-10-PCS; principal; 2018-12-29 07:07)
PROC: 0DTF0ZZ Resection of Right Large Intestine, Open Approach (ICD-10-PCS; principal; 2018-12-29 07:07)
DX: A41.9 Sepsis, unspecified organism (principal); K55.039 Acute (reversible) ischemia of large intestine, extent unspecified; K66.1 Hemoperitoneum; I13.2 Hypertensive heart and chronic kidney disease with heart failure and with stage 5 chronic kidney disease, or end stage renal disease; N18.6 End stage renal disease; K85.90 Acute pancreatitis without necrosis or infection, unspecified; E11.22 Type 2 diabetes mellitus with diabetic chronic kidney disease; I49.5 Sick sinus syndrome; Z53.31 Laparoscopic surgical procedure converted to open procedure; N99.842 Postprocedural seroma of a genitourinary system organ or structure following a genitourinary system procedure; I50.30 Unspecified diastolic (congestive) heart failure; Z99.2 Dependence on renal dialysis; Z90.5 Acquired absence of kidney; Z95.0 Presence of cardiac pacemaker; E78.5 Hyperlipidemia, unspecified; G47.33 Obstructive sleep apnea (adult) (pediatric); R31.9 Hematuria, unspecified; K57.90 Diverticulosis of intestine, part unspecified, without perforation or abscess without bleeding; K64.8 Other hemorrhoids; K63.5 Polyp of colon
CPT/HCPCS: 36415; 36600; 71045; 74177; 76700; 80048; 80053; 80202; 81003; 82150; 82270; 82803; 82962; 83605; 83690; 83735; 84100; 85007; 85025; 85610; 85651; 85730; 86140; 86850; 86900; 86901; 86920; 87040; 87070; 87075; 87081; 87205; 87324; 94002; 94003; 94150; 94760; 96365; 96375; 99285; J1815; J2405